=== PATIENT | male | born 1950 ===

== ENCOUNTER 2018-04-30 14:40 | Inpatient (IN) | payer MEDICARE, OTHER ==
--- NOTE | 2018-04-30 14:58 | ED PDOC ---
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 Patient states he felt so much pain that he began feeling lightheaded, fell backwards and hit his head. Patient denies any LOC, fevers, chills, chest pain, shortness of breath, abdominal pain, nausea, vomiting, diarrhea, back pain, neck pain, headache,or any other complaint. PMD: Dr. Mcmahan Time/Duration: Prior to Arrival Symptom Onset: Sudden Symptom Course: Unchanged Activities at Onset: Light Context: Walking Past Medical History - Provider Review Nursing Documentation Reviewed: Yes - Infectious Disease Hx of Infectious Diseases: None - Cardiac Hx Cardiac Disorders: No - Pulmonary Hx Respiratory Disorders: No - Neurological Hx Neurological Disorder: No - HEENT Hx HEENT Disorder: No - Renal Hx Renal Disorder: No - Endocrine/Metabolic Hx Endocrine Disorders: Yes Hx Diabetes Mellitus Type 2: Yes - Hematological/Oncological Hx Blood Disorders: No - Integumentary Hx Dermatological Disorder: No - Musculoskeletal/Rheumatological Hx Musculoskeletal Disorders: No - Gastrointestinal Hx Gastrointestinal Disorders: No - Genitourinary/Gynecological Hx Genitourinary Disorders: No - Psychiatric Hx Psychophysiologic Disorder: No Hx Substance Use: No - Surgical History Other/Comment: bladder - Anesthesia Hx Anesthesia: No Family/Social History - Physician Review Nursing Documentation Reviewed: Yes Family/Social History: Unknown Family HX Smoking Status: Never Smoked Hx Alcohol Use: No Hx Substance Use: No Allergies/Home Meds Allergies/Adverse Reactions: Allergies No Known Allergies Allergy (Verified 09/24/16 12:44) Home Medications: Home Meds Medication Instructions Recorded Confirmed Cyclobenzaprine [Flexeril] 5 mg PO DAILY 07/28/16 09/24/16 Clonazepam [Klonopin] 0.5 mg PO HS PRN 09/24/16 09/24/16 Insulin Aspart [Novolog Flexpen] 100 units SQ ACBHS 09/24/16 09/24/16 Megestrol Acetate [Megace] 1 tsp PO BID 09/24/16 09/24/16 Pantoprazole Sodium [Protonix] 40 mg PO DAILY 09/24/16 09/24/16 SITagliptin [Januvia] 100 mg PO DAILY 09/24/16 09/24/16 metFORMIN ER [glucoPHAGE XR] 750 mg PO BID 09/24/16 09/24/16 traMADol [Ultram] 50 mg PO TID PRN 09/24/16 09/24/16 Review of Systems - Physician Review All systems were reviewed & negative as marked: Yes - Review of Systems Constitutional: Normal Eyes: Normal ENT: Normal Respiratory: Normal. absent: SOB, Cough Cardiovascular: Normal. absent: Chest Pain Gastrointestinal: Normal. absent: Abdominal Pain, Diarrhea, Nausea, Vomiting Genitourinary Male: Normal. absent: Dysuria, Frequency, Hematuria Musculoskeletal: Other (rt leg pain-ankle radiating to rt hip/buttox). absent: Back Pain, Neck Pain Skin: Normal. absent: Rash Neurological: Normal. absent: Headache, Dizziness Endocrine: Normal Hemo/Lymphatic: Normal Psychiatric: Normal Physical Exam Temperature: Afebrile Blood Pressure: Normal Pulse: Regular Respiratory Rate: Normal Appearance: Positive for: Well-Appearing, Non-Toxic, Comfortable Pain Distress: None Mental Status: Positive for: Alert and Oriented X 3 - Systems Exam Head: Present: Atraumatic, Normocephalic Pupils: Present: PERRL Extroacular Muscles: Present: EOMI Conjunctiva: Present: Normal Mouth: Present: Moist Mucous Membranes Neck: Present: Normal Range of Motion. No: MIDLINE TENDERNESS, Paraspinal Tenderness Respiratory/Chest: Present: Clear to Auscultation, Good Air Exchange. No: Respiratory Distress, Accessory Muscle Use Cardiovascular: Present: Regular Rate and Rhythm, Normal S1, S2. No: Murmurs Abdomen: No: Tenderness, Distention, Peritoneal Signs Back: Present: Normal Inspection. No: CVA Tenderness, Midline Tenderness Upper Extremity: Present: Normal Inspection. No: Cyanosis, Edema Lower Extremity: No: Edema, CALF TENDERNESS, Tenderness Neurological: Present: GCS=15, CN II-XII Intact, Speech Normal Skin: Present: Warm, Dry, Normal Color. No: Rashes Psychiatric: Present: Alert, Oriented x 3, Normal Insight, Normal Concentration Medical Decision Making ED Course and Treatment: 04/30/18 15:00 Impression: 68 year old male presents to the Emergency department complaining of rt leg pain and lightheadedness. Differential Diagnosis: lower leg pain due to neuropathy; lightheaded Plan: -- VBG -- CT Head -- Cardiac ISO -- Labs -- D Dimer -- Tylenol -- Sodium Chloride -- UA -- Reassess and disposition Progress Notes: 04/30/18 15:54 Chest X-ray reviewed, shows: IMPRESSION: No active disease. 04/30/18 16:30 Patient experienced 500mL of bloody stool. IVF replaced immediately. 2 units of packed RBC'S ordered on stand by. Patient was treated with Protonix IV. 04/30/18 18:25 EKG reviewed, shows NSR 84 bpm. Patient is AAOx3. No lightheadedness at this time. Cardiac monitoring. Glucose improved with IVF. CT Head completed and reading pending. DAMIEN villegas ordered and pending. - Critical Care Critical Care Minutes: 30 minutes - Scribe Statement The provider has reviewed the documentation as recorded by the Scribe Eve Carpio All medical record entries made by the Scribe were at my direction and personally dictated by me. I have reviewed the chart and agree that the record accurately reflects my personal performance of the history, physical exam, medical decision making, and the department course for this patient. I have also personally directed, reviewed, and agree with the discharge instructions and disposition. Disposition/Present on Arrival - Present on Arrival Any Indicators Present on Arrival: No History of DVT/PE: No History of Uncontrolled Diabetes: No Urinary Catheter: No History Surgical Site Infection Following: None - Disposition Have Diagnosis and Disposition been Completed?: Yes Diagnosis: GI bleed, Near syncope, Leg pain Disposition: HOSPITALIZED Disposition Time: 19:43 Patient Plan: Admission Condition: FAIR
[2018-04-30] MEDS ORDERED: Sodium Chloride 0.9% 1,000 ML IV STA ×2 (15:12→17:18)
--- NOTE | 2018-04-30 15:46 | RAD ---
Date of service: 04/30/2018 HISTORY: near syncope COMPARISON: 09/24/2016 FINDINGS: LUNGS: No active pulmonary disease. PLEURA: No significant pleural effusion identified, no pneumothorax apparent. CARDIOVASCULAR: Normal. OSSEOUS STRUCTURES: No significant abnormalities. VISUALIZED UPPER ABDOMEN: Normal. OTHER FINDINGS: None. IMPRESSION: No active disease.
[2018-04-30 16:53] LABS: BASO # 0.15 K/mm3 (0.0-2.0); BASO % 1.2 % (0.0-3.0); EOS # 1.8 (0.0-0.7); EOS % 14.8 % (1.5-5.0); GRAN # 7.73 (1.4-6.5); GRAN % 63.1 % (50.0-68.0); HEMOGLOBIN 9.5 g/dL (14.0-18.0); LYMPH # 1.8 (1.2-3.4); LYMPH % 14.4 % (22.0-35.0); MEAN CELL VOLUME 88.9 fl (80.0-105.0); MEAN CORPUSCULAR HEMOGLOBIN 29.4 pg (25.0-35.0); MEAN CORPUSCULAR HGB CONC 33.1 g/dl (31.0-37.0); MEAN PLATELET VOLUME 11.2 fl (7.0-11.0); MONO # 0.8 (0.1-0.6); MONO % 6.5 % (1.0-6.0); RBC 3.23 10^6/uL (3.5-6.1); RED CELL DISTRIBUTION WIDTH 12.6 % (11.5-14.5); WHITE BLOOD COUNT 12.3 10^3/ul (4.5-11.0)
[2018-04-30 16:55] LABS: VENOUS BLOOD GAS BASE EXCESS -6.4 mmol/L (0.0-2.0); VENOUS BLOOD GAS PO2 22 mm/Hg (30-55); VENOUS BLOOD PH 7.25 (7.32-7.43)
[2018-04-30 17:16] LABS: ALB/GLOB RATIO 1.4 (1.1-1.8); ALBUMIN 4.6 g/dL (3.0-4.8); ALT/SGPT 34 U/L (7-56); AST/SGOT 30 U/L (17-59); BLOOD UREA NITROGEN 44 mg/dL (7-21); CALCIUM 9.9 mg/dL (8.4-10.5); GFR NON-AFRICAN AMERICAN 40
[2018-04-30 17:21] LABS: TROPONIN I < 0.01 ng/mL
[2018-04-30 17:28] LABS: INR 1.01; PROTHROMBIN TIME 11.5 SECONDS (9.4-12.5)
--- NOTE | 2018-04-30 21:48 | CP.PCM.CON ---
<MorganSegun Fredi - Last Filed: 05/01/18 00:25> History of Present Illness - History of Present Illness History of Present Illness: Segun Mora PGY1, ICU Consult Note for Dr Tuttle Pt is 68 yo male with a PMH of DM, CAD, and intermittent claudication due to poor circulation, who presents to the ED complaining of right LE pain and lightheadedness while shopping at the [employer]. Pt uses a cane. He states he was walking around the store and suddenly felt a pain in his ankle/ leg which shot up his leg to his hip. The pain was so great that he started to feel light headed and dizzy, the room started to spin, and he feel to the ground. Pt reports first hitting his buttocks, then continuing to fall and hit the back of his head. Pt states this has never happened before. . Once pt was in the ER he moved his bowels and sara blood was noted in the bedpan by his daughters and nurse, daughter showed a picture of the blood to the caption writer. Pt states he has been constipated for the past 2 days, and has had to strain while moving his bowels. Denies jet black, sticky stools. [place] [facility] [place] Patient denies any LOC, chest pain, shortness of breath, nausea, vomiting, diarrhea, back pain, neck pain, headache or rash. A 12 point ROS was obtained and added to the HPI where appropriate. PMH: DM, CAD, and intermittent claudication PSH: cholecystectomy, cataract surgery, right foot surgery, staph infection SH: Tobacco denies, Alcohol denies, Drugs denies, lives with FH: Mother DM. Father Unknown Allergies: NKDA Home meds: metformin, januvia, tramadol Cardio: [facility] Pharmacy: [facility] Review of Systems - Review of Systems Review of Systems: a 12 point ROS was obtained and added to the HPI Past Patient History - Infectious Disease Hx of Infectious Diseases: None - Past Social History Smoking Status: Never Smoked - CARDIAC Hx Cardiac Disorders: No - PULMONARY Hx Respiratory Disorders: No - NEUROLOGICAL Hx Neurological Disorder: No - HEENT Hx HEENT Problems: No - RENAL Hx Chronic Kidney Disease: No - ENDOCRINE/METABOLIC Hx Endocrine Disorders: Yes Hx Diabetes Mellitus Type 2: Yes - HEMATOLOGICAL/ONCOLOGICAL Hx Blood Disorders: No - INTEGUMENTARY Hx Dermatological Problems: No - MUSCULOSKELETAL/RHEUMATOLOGICAL Hx Musculoskeletal Disorders: No - GASTROINTESTINAL Hx Gastrointestinal Disorders: No - GENITOURINARY/GYNECOLOGICAL Hx Genitourinary Disorders: No - PSYCHIATRIC Hx Psychophysiologic Disorder: No Hx Substance Use: No - SURGICAL HISTORY Other/Comment: bladder - ANESTHESIA Hx Anesthesia: No Meds Allergies/Adverse Reactions: Allergies Allergy/AdvReac Type Severity Reaction Status Date / Time No Known Allergies Allergy Verified 09/24/16 12:44 Physical Exam - Head Exam Head Exam: ATRAUMATIC, NORMOCEPHALIC - Eye Exam Eye Exam: EOMI Additional comments: conjunctiva pale - ENT Exam ENT Exam: Mucous Membranes Moist - Cardiovascular Exam Cardiovascular Exam: RRR - GI/Abdominal Exam GI & Abdominal Exam: Normal Bowel Sounds Additional comments: mild epigastric tenderness - Extremities Exam Additional comments: old surgical scars on right foot - Neurological Exam Neurological exam: Alert, Oriented x3 - Psychiatric Exam Psychiatric exam: Normal Affect, Normal Mood - Skin Skin Exam: Dry, Normal Color, Warm Results - Vital Signs Recent Vital Signs: Last Vital Signs Temp 98.3 F 04/30/18 19:29 Pulse 89 04/30/18 19:29 Resp 18 04/30/18 19:29 BP 123/70 04/30/18 19:29 Pulse Ox 97 04/30/18 19:29 - Labs Result Diagrams: 04/30/18 16:46 04/30/18 16:46 Labs: Laboratory Results - last 24 hr 04/30/18 04/30/18 04/30/18 15:04 16:46 16:46 WBC 12.3 H D RBC 3.23 L Hgb 9.5 L Hct 28.7 L MCV 88.9 MCH 29.4 MCHC 33.1 RDW 12.6 Plt Count 413 MPV 11.2 H Gran % 63.1 Lymph % (Auto) 14.4 L Schuyler % (Auto) 6.5 H Eos % (Auto) 14.8 H Baso % (Auto) 1.2 Gran # 7.73 H Lymph # (Auto) 1.8 Schuyler # (Auto) 0.8 H Eos # (Auto) 1.8 H Baso # (Auto) 0.15 PT 11.5 INR 1.01 APTT 29.0 D-Dimer, Quantitative 689 H pO2 VBG pH VBG pCO2 VBG HCO3 VBG Total CO2 VBG O2 Sat (Calc) VBG Base Excess VBG Potassium Sodium Chloride Glucose Lactate FiO2 Potassium Carbon Dioxide Anion Gap BUN Creatinine Est GFR ( Amer) Est GFR (Non-Af Amer) POC Glucose (mg/dL) 352 H Random Glucose Calcium Magnesium Total Bilirubin AST ALT Alkaline Phosphatase Lactate Dehydrogenase Total Creatine Kinase Troponin I Total Protein Albumin Globulin Albumin/Globulin Ratio Venous Blood Potassium Blood Type Antibody Screen Crossmatch BBK History Checked 04/30/18 04/30/18 04/30/18 16:46 16:46 18:19 WBC RBC Hgb Hct MCV MCH MCHC RDW Plt Count MPV Gran % Lymph % (Auto) Schuyler % (Auto) Eos % (Auto) Baso % (Auto) Gran # Lymph # (Auto) Schuyler # (Auto) Eos # (Auto) Baso # (Auto) PT INR APTT D-Dimer, Quantitative pO2 22 L VBG pH 7.25 L VBG pCO2 48.0 VBG HCO3 21.0 VBG Total CO2 22.5 VBG O2 Sat (Calc) 34.6 L VBG Base Excess -6.4 L VBG Potassium 5.3 H Sodium 136 135.0 Chloride 103 105.0 Glucose 325 H Lactate 2.2 H FiO2 21.0 Potassium 5.5 H Carbon Dioxide 19 L Anion Gap 20 BUN 44 H Creatinine 1.7 H Est GFR ( Amer) 49 Est GFR (Non-Af Amer) 40 POC Glucose (mg/dL) 281 H Random Glucose 317 H* D Calcium 9.9 Magnesium 2.1 Total Bilirubin 0.5 AST 30 ALT 34 Alkaline Phosphatase 81 Lactate Dehydrogenase 485 Total Creatine Kinase 121 Troponin I < 0.01 Total Protein 7.9 Albumin 4.6 Globulin 3.3 Albumin/Globulin Ratio 1.4 Venous Blood Potassium 5.3 H Blood Type Antibody Screen Crossmatch BBK History Checked 04/30/18 19:57 WBC RBC Hgb Hct MCV MCH MCHC RDW Plt Count MPV Gran % Lymph % (Auto) Schuyler % (Auto) Eos % (Auto) Baso % (Auto) Gran # Lymph # (Auto) Schuyler # (Auto) Eos # (Auto) Baso # (Auto) PT INR APTT D-Dimer, Quantitative pO2 VBG pH VBG pCO2 VBG HCO3 VBG Total CO2 VBG O2 Sat (Calc) VBG Base Excess VBG Potassium Sodium Chloride Glucose Lactate FiO2 Potassium Carbon Dioxide Anion Gap BUN Creatinine Est GFR ( Amer) Est GFR (Non-Af Amer) POC Glucose (mg/dL) Random Glucose Calcium Magnesium Total Bilirubin AST ALT Alkaline Phosphatase Lactate Dehydrogenase Total Creatine Kinase Troponin I Total Protein Albumin Globulin Albumin/Globulin Ratio Venous Blood Potassium Blood Type O POSITIVE Antibody Screen Negative Crossmatch See Detail BBK History Checked No verified bt Assessment & Plan - Assessment and Plan (Free Text) Assessment: Pt is 68 yo male with a PMH of DM, CAD, and intermittent claudication due to poor circulation, who presents to the ED complaining of right LE pain and lightheadedness while shopping at the [employer]. Pt had a BM with sara blood in the bedpan. Plan: Neuro Near syncope vs vasovagal, GI bleed, secondary to nocuous stimulus, - follow up TSH - follow up CBC, trend Q6 - morphine 2mg IVP Q4 - IVF NS100 - orthostatic vitals ordered - CT Head: no acute hemorrhage. moderate size low density area in the right frontal lobe suspicious for an area of infarction which may be recent in nature. Mild brain atrophy and ventricular dilation. Close clinical correlation is advised. - neuro consulted, Dr Quinn Cardio CAD - follow up lipid panel - ECHO ordered Pulm - D dimer elevated - V/Q scan GI - pantoprazole drip - GI consulted, Dr Gupta - Surgery consulted, Dr Bateman / Nephro - bladder scan - straight cath if urine retention Endocrinology DM - follow up A1C - follow up TSH - accuchecks Heme/ ONC - Heme onc consulted, Dr Shankar - pt type and crossmatch - duplex ordered ID - continue to monitor for signs of infection Ppx - hold DVT ppx at this time Pt seen, examined, assessment and plan discussed with Dr Parag Mora PGY1 Pt seen, examined, assessment and plan discussed with Dr Parag Mora PGY1 - Date & Time Date: 04/30/18 Time: 22:38 <Akosua Tuttle - Last Filed: 05/01/18 02:53> Meds - Medications Medications: Current Medications Pantoprazole Sodium (Protonix 40mg Ivpb) 40 mg in 100 mls @ 20 mls/hr IVPB .Q5H LOUIE Last Admin: 04/30/18 23:05 Dose: 20 mls/hr Sodium Chloride (Sodium Chloride 0.9%) 1,000 mls @ 100 mls/hr IV .Q10H LOUIE Last Admin: 04/30/18 23:08 Dose: 100 mls/hr Morphine Sulfate (Morphine) 2 mg IVP Q4H PRN PRN Reason: Pain Results - Vital Signs Recent Vital Signs: Last Vital Signs Temp 98.1 F 05/01/18 02:09 Pulse 115 H 05/01/18 02:09 Resp 23 05/01/18 02:09 BP 155/89 H 05/01/18 02:09 Pulse Ox 100 05/01/18 01:15 - Labs Result Diagrams: 05/01/18 00:30 04/30/18 16:46 Labs: Laboratory Results - last 24 hr 04/30/18 04/30/18 04/30/18 15:04 16:46 16:46 WBC 12.3 H D RBC 3.23 L Hgb 9.5 L Hct 28.7 L MCV 88.9 MCH 29.4 MCHC 33.1 RDW 12.6 Plt Count 413 MPV 11.2 H Gran % 63.1 Lymph % (Auto) 14.4 L Schuyler % (Auto) 6.5 H Eos % (Auto) 14.8 H Baso % (Auto) 1.2 Gran # 7.73 H Lymph # (Auto) 1.8 Schuyler # (Auto) 0.8 H Eos # (Auto) 1.8 H Baso # (Auto) 0.15 PT 11.5 INR 1.01 APTT 29.0 D-Dimer, Quantitative 689 H pO2 VBG pH VBG pCO2 VBG HCO3 VBG Total CO2 VBG O2 Sat (Calc) VBG Base Excess VBG Potassium Sodium Chloride Glucose Lactate FiO2 Potassium Carbon Dioxide Anion Gap BUN Creatinine Est GFR ( Amer) Est GFR (Non-Af Amer) POC Glucose (mg/dL) 352 H Random Glucose Calcium Magnesium Total Bilirubin AST ALT Alkaline Phosphatase Lactate Dehydrogenase Total Creatine Kinase Troponin I Total Protein Albumin Globulin Albumin/Globulin Ratio TSH 3rd Generation Venous Blood Potassium Blood Type Blood Type Confirm Antibody Screen Crossmatch BBK History Checked 04/30/18 04/30/18 04/30/18 16:46 16:46 16:46 WBC RBC Hgb Hct MCV MCH MCHC RDW Plt Count MPV Gran % Lymph % (Auto) Schuyler % (Auto) Eos % (Auto) Baso % (Auto) Gran # Lymph # (Auto) Schuyler # (Auto) Eos # (Auto) Baso # (Auto) PT INR APTT D-Dimer, Quantitative pO2 22 L VBG pH 7.25 L VBG pCO2 48.0 VBG HCO3 21.0 VBG Total CO2 22.5 VBG O2 Sat (Calc) 34.6 L VBG Base Excess -6.4 L VBG Potassium 5.3 H Sodium 136 135.0 Chloride 103 105.0 Glucose 325 H Lactate 2.2 H FiO2 21.0 Potassium 5.5 H Carbon Dioxide 19 L Anion Gap 20 BUN 44 H Creatinine 1.7 H Est GFR ( Amer) 49 Est GFR (Non-Af Amer) 40 POC Glucose (mg/dL) Random Glucose 317 H* D Calcium 9.9 Magnesium 2.1 Total Bilirubin 0.5 AST 30 ALT 34 Alkaline Phosphatase 81 Lactate Dehydrogenase 485 Total Creatine Kinase 121 Troponin I < 0.01 Total Protein 7.9 Albumin 4.6 Globulin 3.3 Albumin/Globulin Ratio 1.4 TSH 3rd Generation 4.67 Venous Blood Potassium 5.3 H Blood Type Blood Type Confirm Antibody Screen Crossmatch BBK History Checked 04/30/18 04/30/18 04/30/18 18:19 19:57 21:45 WBC RBC Hgb Hct MCV MCH MCHC RDW Plt Count MPV Gran % Lymph % (Auto) Schuyler % (Auto) Eos % (Auto) Baso % (Auto) Gran # Lymph # (Auto) Schuyler # (Auto) Eos # (Auto) Baso # (Auto) PT INR APTT D-Dimer, Quantitative pO2 40 VBG pH 7.35 VBG pCO2 36.0 L VBG HCO3 19.9 L VBG Total CO2 21.0 L VBG O2 Sat (Calc) 77.5 H VBG Base Excess -5.1 L VBG Potassium 4.4 Sodium 138.0 Chloride 113.0 H Glucose 210 H Lactate 0.9 FiO2 21.0 Potassium Carbon Dioxide Anion Gap BUN Creatinine Est GFR ( Amer) Est GFR (Non-Af Amer) POC Glucose (mg/dL) 281 H Random Glucose Calcium Magnesium Total Bilirubin AST ALT Alkaline Phosphatase Lactate Dehydrogenase Total Creatine Kinase Troponin I Total Protein Albumin Globulin Albumin/Globulin Ratio TSH 3rd Generation Venous Blood Potassium 4.4 Blood Type O POSITIVE Blood Type Confirm Antibody Screen Negative Crossmatch See Detail BBK History Checked No verified bt 04/30/18 05/01/18 21:45 00:30 WBC 8.6 D RBC 2.19 L Hgb 6.5 L* D Hct 19.3 L* MCV 88.1 MCH 29.7 MCHC 33.7 RDW 12.7 Plt Count 338 MPV 10.9 Gran % Lymph % (Auto) Schuyler % (Auto) Eos % (Auto) Baso % (Auto) Gran # Lymph # (Auto) Schuyler # (Auto) Eos # (Auto) Baso # (Auto) PT INR APTT D-Dimer, Quantitative pO2 VBG pH VBG pCO2 VBG HCO3 VBG Total CO2 VBG O2 Sat (Calc) VBG Base Excess VBG Potassium Sodium Chloride Glucose Lactate FiO2 Potassium Carbon Dioxide Anion Gap BUN Creatinine Est GFR ( Amer) Est GFR (Non-Af Amer) POC Glucose (mg/dL) Random Glucose Calcium Magnesium Total Bilirubin AST ALT Alkaline Phosphatase Lactate Dehydrogenase Total Creatine Kinase Troponin I Total Protein Albumin Globulin Albumin/Globulin Ratio TSH 3rd Generation Venous Blood Potassium Blood Type Blood Type Confirm O POSITIVE Antibody Screen Crossmatch BBK History Checked Attending/Attestation - Attestation I have personally seen and examined this patient.: Yes I have fully participated in the care of the patient.: Yes I have reviewed all pertinent clinical information: Yes Notes (Text): 05/01/18 02:46 Patient was seen when he was in the ER in bed # 21. History obtained from daughter. Medical record was reviewed. 68 year old male with cc: Right leg pain Right hip pain Fall Head injury Lower GI bleeding. Has been admitted with Near syncpoe. Hyperkalemia-5.5 Metabolic acidosis-19 Renal insufficiency-44/1.7 Hyperglycemia-317 Lactate level 2.2 D-Dimer -689 Leukocytosis-12.3 Hgb/Hct-9.5/28.7 CT head-recent right frontal infarct? Has PMH: DM PVD Pelvic /Iliac fracture Iron defficiemcy anemia.
[2018-04-30 22:16] LABS: VENOUS BLOOD GAS BASE EXCESS -5.1 mmol/L (0.0-2.0); VENOUS BLOOD GAS PO2 40 mm/Hg (30-55); VENOUS BLOOD PH 7.35 (7.32-7.43)
[2018-04-30] MEDS: Pantoprazole 40mg/100mL NS 40 MG/100 ML BAG IVPB SCH (23:05)
[2018-04-30] MEDS: Sodium Chloride 0.9% 1,000 ML IV SCH (23:08)
--- NOTE | 2018-04-30 23:19 | CP.PCM.CON ---
History of Present Illness - History of Present Illness History of Present Illness: General Surgery Consult Note for Dr. Bateman Reason for Consult: GI bleed This is a 68M with a PMH of diverticulosis, DM, CAD, PAD, and arthritis who presented today after a non mechanical fall from standing while shopping with grandson. In the ED he was worked up for his fall which included a CT scan that was significant for a right frontal lobe CVA. While in the ED the patient had multiple bloody bowel movements with clots. He denies any previous similar episode. He denies any chest pain or SOB. He reports a colonoscopy this year at [facility] however he could not articulate what the findings were. PMH: diverticulosis, DM, CAD, PAD, and arthritis PSH: cholecystectomy, cataract surgery, right foot surgery SH: Denies vices Allergies: NKDA Review of Systems - Review of Systems All systems: reviewed and no additional remarkable complaints except Review of Systems: 12 point review of symptoms conducted and negative except for bloody BM and fall Past Patient History - Infectious Disease Hx of Infectious Diseases: None - Past Social History Smoking Status: Never Smoked - CARDIAC Hx Cardiac Disorders: No - PULMONARY Hx Respiratory Disorders: No - NEUROLOGICAL Hx Neurological Disorder: No - HEENT Hx HEENT Problems: No - RENAL Hx Chronic Kidney Disease: No - ENDOCRINE/METABOLIC Hx Endocrine Disorders: Yes Hx Diabetes Mellitus Type 2: Yes - HEMATOLOGICAL/ONCOLOGICAL Hx Blood Disorders: No - INTEGUMENTARY Hx Dermatological Problems: No - MUSCULOSKELETAL/RHEUMATOLOGICAL Hx Musculoskeletal Disorders: No - GASTROINTESTINAL Hx Gastrointestinal Disorders: No - GENITOURINARY/GYNECOLOGICAL Hx Genitourinary Disorders: No - PSYCHIATRIC Hx Psychophysiologic Disorder: No Hx Substance Use: No - SURGICAL HISTORY Other/Comment: bladder - ANESTHESIA Hx Anesthesia: No Meds Allergies/Adverse Reactions: Allergies Allergy/AdvReac Type Severity Reaction Status Date / Time No Known Allergies Allergy Verified 09/24/16 12:44 - Medications Medications: Current Medications Pantoprazole Sodium (Protonix 40mg Ivpb) 40 mg in 100 mls @ 20 mls/hr IVPB .Q5H [facility] Last Admin: 04/30/18 23:05 Dose: 20 mls/hr Sodium Chloride (Sodium Chloride 0.9%) 1,000 mls @ 100 mls/hr IV .Q10H [facility] Last Admin: 04/30/18 23:08 Dose: 100 mls/hr Morphine Sulfate (Morphine) 2 mg IVP Q4 [facility] Physical Exam - Constitutional Appears: Non-toxic, No Acute Distress - Head Exam Head Exam: ATRAUMATIC, NORMOCEPHALIC - Eye Exam Eye Exam: EOMI, Normal appearance - ENT Exam ENT Exam: Mucous Membranes Moist - Respiratory Exam Respiratory Exam: NORMAL BREATHING PATTERN - Cardiovascular Exam Cardiovascular Exam: REGULAR RHYTHM, +S1, +S2 - GI/Abdominal Exam GI & Abdominal Exam: Soft. absent: Distended, Firm, Guarding, Hernia, Normal Bowel Sounds, Rigid, Tenderness - Rectal Exam Rectal Exam: Bloody Stool Additional comments: No masses on LOVE, blood per rectum - Neurological Exam Neurological exam: Alert, Oriented x3 - Psychiatric Exam Psychiatric exam: Normal Affect, Normal Mood - Skin Skin Exam: Dry, Intact Results - Vital Signs Recent Vital Signs: Last Vital Signs Temp 98.3 F 04/30/18 19:29 Pulse 89 04/30/18 19:29 Resp 18 04/30/18 19:29 BP 123/70 04/30/18 19:29 Pulse Ox 97 04/30/18 19:29 - Labs Result Diagrams: 05/01/18 00:30 04/30/18 16:46 Labs: Laboratory Results - last 24 hr 04/30/18 04/30/18 04/30/18 15:04 16:46 16:46 WBC 12.3 H D RBC 3.23 L Hgb 9.5 L Hct 28.7 L MCV 88.9 MCH 29.4 MCHC 33.1 RDW 12.6 Plt Count 413 MPV 11.2 H Gran % 63.1 Lymph % (Auto) 14.4 L [place] % (Auto) 6.5 H Eos % (Auto) 14.8 H Baso % (Auto) 1.2 Gran # 7.73 H Lymph # (Auto) 1.8 [place] # (Auto) 0.8 H Eos # (Auto) 1.8 H Baso # (Auto) 0.15 PT 11.5 INR 1.01 APTT 29.0 D-Dimer, Quantitative 689 H pO2 VBG pH VBG pCO2 VBG HCO3 VBG Total CO2 VBG O2 Sat (Calc) VBG Base Excess VBG Potassium Sodium Chloride Glucose Lactate FiO2 Potassium Carbon Dioxide Anion Gap BUN Creatinine Est GFR ( Amer) Est GFR (Non-Af Amer) POC Glucose (mg/dL) 352 H Random Glucose Calcium Magnesium Total Bilirubin AST ALT Alkaline Phosphatase Lactate Dehydrogenase Total Creatine Kinase Troponin I Total Protein Albumin Globulin Albumin/Globulin Ratio Venous Blood Potassium Blood Type Blood Type Confirm Antibody Screen Crossmatch BBK History Checked 04/30/18 04/30/18 04/30/18 16:46 16:46 18:19 WBC RBC Hgb Hct MCV MCH MCHC RDW Plt Count MPV Gran % Lymph % (Auto) [place] % (Auto) Eos % (Auto) Baso % (Auto) Gran # Lymph # (Auto) [place] # (Auto) Eos # (Auto) Baso # (Auto) PT INR APTT D-Dimer, Quantitative pO2 22 L VBG pH 7.25 L VBG pCO2 48.0 VBG HCO3 21.0 VBG Total CO2 22.5 VBG O2 Sat (Calc) 34.6 L VBG Base Excess -6.4 L VBG Potassium 5.3 H Sodium 136 135.0 Chloride 103 105.0 Glucose 325 H Lactate 2.2 H FiO2 21.0 Potassium 5.5 H Carbon Dioxide 19 L Anion Gap 20 BUN 44 H Creatinine 1.7 H Est GFR ( Amer) 49 Est GFR (Non-Af Amer) 40 POC Glucose (mg/dL) 281 H Random Glucose 317 H* D Calcium 9.9 Magnesium 2.1 Total Bilirubin 0.5 AST 30 ALT 34 Alkaline Phosphatase 81 Lactate Dehydrogenase 485 Total Creatine Kinase 121 Troponin I < 0.01 Total Protein 7.9 Albumin 4.6 Globulin 3.3 Albumin/Globulin Ratio 1.4 Venous Blood Potassium 5.3 H Blood Type Blood Type Confirm Antibody Screen Crossmatch BBK History Checked 04/30/18 04/30/18 04/30/18 19:57 21:45 21:45 WBC RBC Hgb Hct MCV MCH MCHC RDW Plt Count MPV Gran % Lymph % (Auto) [place] % (Auto) Eos % (Auto) Baso % (Auto) Gran # Lymph # (Auto) [place] # (Auto) Eos # (Auto) Baso # (Auto) PT INR APTT D-Dimer, Quantitative pO2 40 VBG pH 7.35 VBG pCO2 36.0 L VBG HCO3 19.9 L VBG Total CO2 21.0 L VBG O2 Sat (Calc) 77.5 H VBG Base Excess -5.1 L VBG Potassium 4.4 Sodium 138.0 Chloride 113.0 H Glucose 210 H Lactate 0.9 FiO2 21.0 Potassium Carbon Dioxide Anion Gap BUN Creatinine Est GFR ( Amer) Est GFR (Non-Af Amer) POC Glucose (mg/dL) Random Glucose Calcium Magnesium Total Bilirubin AST ALT Alkaline Phosphatase Lactate Dehydrogenase Total Creatine Kinase Troponin I Total Protein Albumin Globulin Albumin/Globulin Ratio Venous Blood Potassium 4.4 Blood Type O POSITIVE Blood Type Confirm O POSITIVE Antibody Screen Negative Crossmatch See Detail BBK History Checked No verified bt Assessment & Plan - Assessment and Plan (Free Text) Assessment: 68M with acute GI bleed Monitor CBC Q6 Transfuse as needed F/U GI Will continue to monitor Luis Miguel Perez PGY3
[2018-05-01] MEDS ORDERED: Morphine 2 mg/ml ISec IVP SCH
[2018-05-01 01:10] LABS: MEAN CELL VOLUME 88.1 fl (80.0-105.0); MEAN CORPUSCULAR HEMOGLOBIN 29.7 pg (25.0-35.0); MEAN CORPUSCULAR HGB CONC 33.7 g/dl (31.0-37.0); MEAN PLATELET VOLUME 10.9 fl (7.0-11.0); RBC 2.19 10^6/uL (3.5-6.1); RED CELL DISTRIBUTION WIDTH 12.7 % (11.5-14.5); WHITE BLOOD COUNT 8.6 10^3/ul (4.5-11.0)
[2018-05-01 01:15] LABS: HEMOGLOBIN 6.5 g/dL (14.0-18.0)
[2018-05-01] MEDS ORDERED: Influenza Vaccine 60 mcg/0.5 mL SYR (4YR UP) IM ONE (02:58)
[2018-05-01] MEDS ORDERED: Pneumococcal 23-Valent Vaccine IM ONE (02:58)
[2018-05-01 02:59] VITALS: BMI 21.7
[2018-05-01 07:12] LABS: HEMOGLOBIN 9.5 g/dL (14.0-18.0); MEAN CELL VOLUME 89.3 fl (80.0-105.0); MEAN CORPUSCULAR HGB CONC 33.6 g/dl (31.0-37.0); RBC 3.17 10^6/uL (3.5-6.1); RED CELL DISTRIBUTION WIDTH 12.6 % (11.5-14.5); WHITE BLOOD COUNT 6.9 10^3/ul (4.5-11.0)
--- NOTE | 2018-05-01 07:47 | CP.PCM.PN ---
<Robbie Chiu - Last Filed: 05/01/18 12:21> Subjective - Date & Time of Evaluation Date of Evaluation: 05/01/18 Time of Evaluation: 08:10 - Subjective Subjective: Subjective: Patient seen and examined at bedside. Resting comfortably in bed. No acute overnight events. Patient states leg pain has improved relative to baseline. Offers no new complaints at this time. Denies fever, chills, chest pain, shor tness of breath, abdominal pain, nausea, vomiting, diarrhea, constipation, and urinary symptoms. 12-point review of systems negative except as indicated in the HPI Physical Examination: - Constitutional Appears: Non-toxic, No Acute Distress, Cachectic, Chronically Ill - Head Exam Head Exam: NORMAL INSPECTION - Eye Exam Eye Exam: EOMI, Normal appearance - ENT Exam ENT Exam: Mucous Membranes Moist - Respiratory Exam Respiratory Exam: Clear to Auscultation Bilateral, NORMAL BREATHING PATTERN - Cardiovascular Exam Cardiovascular Exam: REGULAR RHYTHM, +S1, +S2 - GI/Abdominal Exam GI & Abdominal Exam: Normal Bowel Sounds, Soft, Tenderness - Extremities Exam Extremities exam: Positive for: normal inspection - Neurological Exam Neurological exam: Alert, CN II-XII Intact, Oriented x3 - Psychiatric Exam Psychiatric exam: Normal Affect, Normal Mood - Skin Skin Exam: Dry, Normal Color Assessment and Plan: Pt is 68 year 64d male with a PMHx of DM, CAD, and intermittent claudication due to poor circulation, who was admitted for evaluation and treatment of right LE pain and lightheadedness. Pt experienced a bowel movement with sara blood in the bedpan. GI Hemorrhage - type and crossmatch s/p 2unit pRBCs, Hgb stable 9.5 - transfuse for symptomatic bleeding or Hb<7. - keep pt NPO - c/w IVF NS100 - c/w pantoprazole drip - GI consulted, Dr Gupta- will need EGD/CSPY prior to discharge - Surgery consulted (Dr. Bateman)- GI bleeding scan ordered and pending - CT abd/pelv no contrast (due to SABRA) ordered and pending Elevated D-Dimer - tachycardia likely secondary to anemia - duplex of lower extremities ordered and pending Suspected Cerebral Infarcts - CT head overnigh read- no acute hemorrhage, right frontal lobe suspicious for area of infarct may be recent in nature - CT head day time read- no acute - neurology consulted (Dr. Quinn)- appreciate recommendations Hx of DM - Hgb A1C ordered and pending - follow up TSH - accuchecks Hx of HTN - BP stable 120s/70s off of antihypertensives - continue to monitor Hx of DM - hemoglobin A1c ordered and pending - blood glucose trends ~ 310s to 180s - continue fingersticks q4h and ISS Hx of Chronic Anemia - Heme onc consulted, Dr Shankar - type and crossmatch s/p 2unit pRBCs, Hgb stable 9.5 Patient seen, case discussed with, and plan approved by attending physician, Dr. Linares. Objective - Vital Signs/Intake and Output Vital Signs (last 24 hours): Temp Pulse Resp BP Pulse Ox 97.9 F 85 14 126/74 100 05/01/18 05:06 05/01/18 05:06 05/01/18 05:06 05/01/18 05:06 05/01/18 01:15 Intake and Output: 05/01/18 05/01/18 06:59 18:59 Intake Total 762 Balance 762 - Medications Medications: Current Medications Pantoprazole Sodium (Protonix 40mg Ivpb) 40 mg in 100 mls @ 20 mls/hr IVPB .Q5H [facility] Last Admin: 04/30/18 23:05 Dose: 20 mls/hr Sodium Chloride (Sodium Chloride 0.9%) 1,000 mls @ 100 mls/hr IV .Q10H [facility] Last Admin: 04/30/18 23:08 Dose: 100 mls/hr Morphine Sulfate (Morphine) 2 mg IVP Q4H PRN PRN Reason: Pain - Labs Labs: 05/01/18 06:50 04/30/18 16:46 PT 11.5 SECONDS (9.4-12.5) 04/30/18 16:46 INR 1.01 04/30/18 16:46 APTT 29.0 Seconds (25.1-36.5) 04/30/18 16:46 <Davida Linares - Last Filed: 05/09/18 08:17> Objective - Vital Signs/Intake and Output Vital Signs (last 24 hours): Temp Pulse Resp BP Pulse Ox 98.6 F 86 20 172/87 H 98 05/06/18 16:47 05/06/18 16:47 05/06/18 16:47 05/06/18 16:47 05/06/18 16:47 - Labs Labs: 05/06/18 06:00 05/06/18 06:00 PT 11.5 SECONDS (9.4-12.5) 04/30/18 16:46 INR 1.01 04/30/18 16:46 APTT 29.0 Seconds (25.1-36.5) 04/30/18 16:46 Attending/Attestation - Attestation I have personally seen and examined this patient.: Yes I have fully participated in the care of the patient.: Yes I have reviewed all pertinent clinical information, including history, physical exam and plan: Yes Notes (Text): 05/09/18 08:17 Medical record note made by the resident after discussion with my direction and input after the patient was personally seen and examined by me. I have reviewed the chart and agree that the record accurately reflects by personal performance of the history, physical exam, data review, and medical decision-making, in the course for the patient. I have also personally directed the plan of care. 64 yrs old male with a PMHx of DM, CAD, and PVD was admitted with symptomeic anemia Hemoglobin 6.5, was found to have bright red colored rectal bleeding, SP 2 unit PRBC last night. Hemoglobin 9.5 today. Possible Colonoscopy Wednesday. CT head encephlomalcia, no infarct.
[2018-05-01 09:30] LABS: BLOOD UREA NITROGEN 28 mg/dL (7-21)
[2018-05-01 09:31] LABS: ALB/GLOB RATIO 1.3 (1.1-1.8); ALBUMIN 3.2 g/dL (3.0-4.8); ALT/SGPT 26 U/L (7-56); AST/SGOT 25 U/L (17-59); CALCIUM 8.2 mg/dL (8.4-10.5); GFR NON-AFRICAN AMERICAN 55; HDL CHOLESTEROL 37 mg/dL (29-60)
--- NOTE | 2018-05-01 09:34 | CT ---
Date of service: 04/30/2018 PROCEDURE: CT HEAD WITHOUT CONTRAST. HISTORY: head injury COMPARISON: 10/03/2015 TECHNIQUE: Axial computed tomography images were obtained through the head/brain without intravenous contrast. Radiation dose: Total exam DLP = 1050 mGy-cm. This CT exam was performed using one or more of the following dose reduction techniques: Automated exposure control, adjustment of the mA and/or kV according to patient size, and/or use of iterative reconstruction technique. FINDINGS: HEMORRHAGE: No intracranial hemorrhage. BRAIN: No mass effect or edema. There is chronic encephalomalacia in the right frontal white matter. This is unchanged. There are no acute findings VENTRICLES: Unremarkable. No hydrocephalus. CALVARIUM: Unremarkable. PARANASAL SINUSES: Unremarkable as visualized. No significant inflammatory changes. MASTOID AIR CELLS: Unremarkable as visualized. No inflammatory changes. OTHER FINDINGS: The report concurs with the preliminary [facility] report IMPRESSION: No acute finding
[2018-05-01 09:36] LABS: LDL CHOLESTEROL 38 mg/dL (0-129)
[2018-05-01] MEDS: Pantoprazole 40mg/100mL NS 40 MG/100 ML BAG IVPB SCH ×3 (09:40→20:06)
--- NOTE | 2018-05-01 10:42 | CP.PCM.PN ---
Subjective - Date & Time of Evaluation Date of Evaluation: 05/01/18 Time of Evaluation: 07:30 - Subjective Subjective: Patient seen and examined, reports bloody BMs. Denies CP, SOB, dizziness, MILLER. Objective - Vital Signs/Intake and Output Vital Signs (last 24 hours): Temp Pulse Resp BP Pulse Ox 97.9 F 85 13 131/72 99 05/01/18 05:06 05/01/18 08:00 05/01/18 08:00 05/01/18 08:00 05/01/18 08:00 Intake and Output: 05/01/18 05/01/18 06:59 18:59 Intake Total 1302 Output Total 550 Balance 752 - Medications Medications: Current Medications Pantoprazole Sodium (Protonix 40mg Ivpb) 40 mg in 100 mls @ 20 mls/hr IVPB .Q5H [facility] Last Admin: 05/01/18 09:40 Dose: 20 mls/hr Sodium Chloride (Sodium Chloride 0.9%) 1,000 mls @ 100 mls/hr IV .Q10H [facility] Last Admin: 04/30/18 23:08 Dose: 100 mls/hr Insulin Human Regular (Humulin R Med) 0 units SC ACHS [facility]; Protocol Morphine Sulfate (Morphine) 2 mg IVP Q4H PRN PRN Reason: Pain - Labs Labs: 05/01/18 06:50 05/01/18 06:50 PT 11.5 SECONDS (9.4-12.5) 04/30/18 16:46 INR 1.01 04/30/18 16:46 APTT 29.0 Seconds (25.1-36.5) 04/30/18 16:46 - Constitutional Appears: Non-toxic, No Acute Distress - Head Exam Head Exam: NORMAL INSPECTION - Eye Exam Eye Exam: Normal appearance - ENT Exam ENT Exam: Mucous Membranes Moist - Neck Exam Neck Exam: Full ROM - Respiratory Exam Respiratory Exam: Clear to Ausculation Bilateral, NORMAL BREATHING PATTERN - Cardiovascular Exam Cardiovascular Exam: REGULAR RHYTHM, +S1, +S2 - GI/Abdominal Exam GI & Abdominal Exam: Soft, Normal Bowel Sounds - Extremities Exam Extremities Exam: Full ROM, Normal Inspection - Back Exam Back Exam: NORMAL INSPECTION - Neurological Exam Neurological Exam: Alert, Awake, Oriented x3 - Psychiatric Exam Psychiatric exam: Normal Affect - Skin Skin Exam: Normal Color, Warm Assessment and Plan - Assessment and Plan (Free Text) Assessment: 68yo male with PMHx of HTN, CAD, a/w lower GIB Lower GIB CAD HTN Anemia - currently afebrile, BP stable, comfortable in NAD, has further bloody BMs this morning - GI and surgery consulted - transfused 2u PRBC, HH 6.5-->9.3, repeat CBC pending - Bleeding scan, CT A/P pending Recommend: - supp o2 as needed, duonebs PRN - panculture, UCx, BCx, Procal - NPO - Hold BP meds - IVF hydration - CBC q6hr monitoring - maintain 2 large bore PIVs - PPI - Follow UP GI, Surgery - follow up CT A/P, Bleeding scan - GI ppx - DVT ppx, SCDs - Monitor in MICU
--- NOTE | 2018-05-01 10:54 | CP.PCM.CON ---
<Poli Allan - Last Filed: 05/01/18 11:16> History of Present Illness - History of Present Illness History of Present Illness: GI Fellow PGY4, Consult note. Glenn Ruiz is a 68M with hx of PVD, T2DM with foot ulcer who presented with pre-syncopal fall and found to have a GI bleed. Apparently, patient had severe right leg pain at the time just before he fell. His Hb dropped from 9.5 (baseline) to 6.5. He received 2u pRBCs and Hb now at baseline. He is hemodynamically stable. Nursing states he had "cranberry" stool with clots at 7AM today. He denies previously having GI bleeds in the past. He denies taking blood thinners. He was told he had a blood clot in his heart and he see a regional loss prevention manager "Dr. Singleton." Apparently patient has had several endoscopic procedures including ERCP with CBD stent according to records but patient denies; however, patient does not recall at this time. No family is at bedside to help with history. He admits previous surgery on right foot for ulcer and also Bladder surgery several years ago for an unknown reason. He denies family history of GI related cancers He has never smoked and last drank alcohol 9 years ago. 12pt ROS negative except for above. Past Patient History - Infectious Disease Hx of Infectious Diseases: None - Past Social History Smoking Status: Never Smoked - CARDIAC Hx Cardiac Disorders: No - PULMONARY Hx Respiratory Disorders: No - NEUROLOGICAL Hx Neurological Disorder: No - HEENT Hx HEENT Problems: No - RENAL Hx Chronic Kidney Disease: No - ENDOCRINE/METABOLIC Hx Endocrine Disorders: Yes Hx Diabetes Mellitus Type 2: Yes - HEMATOLOGICAL/ONCOLOGICAL Hx Blood Disorders: No - INTEGUMENTARY Hx Dermatological Problems: No - MUSCULOSKELETAL/RHEUMATOLOGICAL Hx Musculoskeletal Disorders: No - GASTROINTESTINAL Hx Gastrointestinal Disorders: No - GENITOURINARY/GYNECOLOGICAL Hx Genitourinary Disorders: No - PSYCHIATRIC Hx Psychophysiologic Disorder: No Hx Substance Use: No - SURGICAL HISTORY Other/Comment: bladder - ANESTHESIA Hx Anesthesia: No Meds Allergies/Adverse Reactions: Allergies Allergy/AdvReac Type Severity Reaction Status Date / Time No Known Allergies Allergy Verified 09/24/16 12:44 - Medications Medications: Current Medications Pantoprazole Sodium (Protonix 40mg Ivpb) 40 mg in 100 mls @ 20 mls/hr IVPB .Q5H [facility] Last Admin: 05/01/18 09:40 Dose: 20 mls/hr Sodium Chloride (Sodium Chloride 0.9%) 1,000 mls @ 100 mls/hr IV .Q10H [facility] Last Admin: 04/30/18 23:08 Dose: 100 mls/hr Insulin Human Regular (Humulin R Med) 0 units SC ACHS [facility]; Protocol Morphine Sulfate (Morphine) 2 mg IVP Q4H PRN PRN Reason: Pain Physical Exam - Constitutional Appears: Non-toxic, No Acute Distress, Cachectic, Chronically Ill - Head Exam Head Exam: NORMAL INSPECTION - Eye Exam Eye Exam: EOMI, Normal appearance - ENT Exam ENT Exam: Mucous Membranes Moist - Respiratory Exam Respiratory Exam: Clear to Auscultation Bilateral, NORMAL BREATHING PATTERN - Cardiovascular Exam Cardiovascular Exam: REGULAR RHYTHM, +S1, +S2 - GI/Abdominal Exam GI & Abdominal Exam: Normal Bowel Sounds, Soft, Tenderness Additional comments: Mild tenderness diffusely with deep palpation. - Rectal Exam Rectal Exam: Deferred - Extremities Exam Extremities exam: Positive for: normal inspection - Neurological Exam Neurological exam: Alert, CN II-XII Intact, Oriented x3 - Psychiatric Exam Psychiatric exam: Normal Affect, Normal Mood - Skin Skin Exam: Dry, Normal Color Results - Vital Signs Recent Vital Signs: Last Vital Signs Temp 97.9 F 05/01/18 05:06 Pulse 85 05/01/18 08:00 Resp 13 05/01/18 08:00 BP 131/72 05/01/18 08:00 Pulse Ox 99 05/01/18 08:00 - Labs Result Diagrams: 05/01/18 06:50 05/01/18 06:50 Labs: Laboratory Results - last 24 hr 04/30/18 04/30/18 04/30/18 15:04 16:46 16:46 WBC 12.3 H D RBC 3.23 L Hgb 9.5 L Hct 28.7 L MCV 88.9 MCH 29.4 MCHC 33.1 RDW 12.6 Plt Count 413 MPV 11.2 H Gran % 63.1 Lymph % (Auto) 14.4 L Sharp % (Auto) 6.5 H Eos % (Auto) 14.8 H Baso % (Auto) 1.2 Gran # 7.73 H Lymph # (Auto) 1.8 Sharp # (Auto) 0.8 H Eos # (Auto) 1.8 H Baso # (Auto) 0.15 PT 11.5 INR 1.01 APTT 29.0 D-Dimer, Quantitative 689 H pO2 VBG pH VBG pCO2 VBG HCO3 VBG Total CO2 VBG O2 Sat (Calc) VBG Base Excess VBG Potassium Sodium Chloride Glucose Lactate FiO2 Potassium Carbon Dioxide Anion Gap BUN Creatinine Est GFR ( Amer) Est GFR (Non-Af Amer) POC Glucose (mg/dL) 352 H Random Glucose Calcium Phosphorus Magnesium Total Bilirubin AST ALT Alkaline Phosphatase Lactate Dehydrogenase Total Creatine Kinase Troponin I Total Protein Albumin Globulin Albumin/Globulin Ratio Triglycerides Cholesterol LDL Cholesterol Direct HDL Cholesterol TSH 3rd Generation Venous Blood Potassium Blood Type Blood Type Confirm Antibody Screen Crossmatch BBK History Checked 04/30/18 04/30/18 04/30/18 16:46 16:46 16:46 WBC RBC Hgb Hct MCV MCH MCHC RDW Plt Count MPV Gran % Lymph % (Auto) Sharp % (Auto) Eos % (Auto) Baso % (Auto) Gran # Lymph # (Auto) Sharp # (Auto) Eos # (Auto) Baso # (Auto) PT INR APTT D-Dimer, Quantitative pO2 22 L VBG pH 7.25 L VBG pCO2 48.0 VBG HCO3 21.0 VBG Total CO2 22.5 VBG O2 Sat (Calc) 34.6 L VBG Base Excess -6.4 L VBG Potassium 5.3 H Sodium 136 135.0 Chloride 103 105.0 Glucose 325 H Lactate 2.2 H FiO2 21.0 Potassium 5.5 H Carbon Dioxide 19 L Anion Gap 20 BUN 44 H Creatinine 1.7 H Est GFR ( Amer) 49 Est GFR (Non-Af Amer) 40 POC Glucose (mg/dL) Random Glucose 317 H* D Calcium 9.9 Phosphorus Magnesium 2.1 Total Bilirubin 0.5 AST 30 ALT 34 Alkaline Phosphatase 81 Lactate Dehydrogenase 485 Total Creatine Kinase 121 Troponin I < 0.01 Total Protein 7.9 Albumin 4.6 Globulin 3.3 Albumin/Globulin Ratio 1.4 Triglycerides Cholesterol LDL Cholesterol Direct HDL Cholesterol TSH 3rd Generation 4.67 Venous Blood Potassium 5.3 H Blood Type Blood Type Confirm Antibody Screen Crossmatch BBK History Checked 04/30/18 04/30/18 04/30/18 18:19 19:57 21:45 WBC RBC Hgb Hct MCV MCH MCHC RDW Plt Count MPV Gran % Lymph % (Auto) Sharp % (Auto) Eos % (Auto) Baso % (Auto) Gran # Lymph # (Auto) Sharp # (Auto) Eos # (Auto) Baso # (Auto) PT INR APTT D-Dimer, Quantitative pO2 40 VBG pH 7.35 VBG pCO2 36.0 L VBG HCO3 19.9 L VBG Total CO2 21.0 L VBG O2 Sat (Calc) 77.5 H VBG Base Excess -5.1 L VBG Potassium 4.4 Sodium 138.0 Chloride 113.0 H Glucose 210 H Lactate 0.9 FiO2 21.0 Potassium Carbon Dioxide Anion Gap BUN Creatinine Est GFR ( Amer) Est GFR (Non-Af Amer) POC Glucose (mg/dL) 281 H Random Glucose Calcium Phosphorus Magnesium Total Bilirubin AST ALT Alkaline Phosphatase Lactate Dehydrogenase Total Creatine Kinase Troponin I Total Protein Albumin Globulin Albumin/Globulin Ratio Triglycerides Cholesterol LDL Cholesterol Direct HDL Cholesterol TSH 3rd Generation Venous Blood Potassium 4.4 Blood Type O POSITIVE Blood Type Confirm Antibody Screen Negative Crossmatch See Detail BBK History Checked No verified bt 04/30/18 05/01/18 05/01/18 21:45 00:30 06:50 WBC 8.6 D 6.9 RBC 2.19 L 3.17 L Hgb 6.5 L* D 9.5 L D Hct 19.3 L* 28.3 L MCV 88.1 89.3 MCH 29.7 30.0 MCHC 33.7 33.6 RDW 12.7 12.6 Plt Count 338 312 MPV 10.9 11.0 Gran % Lymph % (Auto) Sharp % (Auto) Eos % (Auto) Baso % (Auto) Gran # Lymph # (Auto) Sharp # (Auto) Eos # (Auto) Baso # (Auto) PT INR APTT D-Dimer, Quantitative pO2 VBG pH VBG pCO2 VBG HCO3 VBG Total CO2 VBG O2 Sat (Calc) VBG Base Excess VBG Potassium Sodium Chloride Glucose Lactate FiO2 Potassium Carbon Dioxide Anion Gap BUN Creatinine Est GFR ( Amer) Est GFR (Non-Af Amer) POC Glucose (mg/dL) Random Glucose Calcium Phosphorus Magnesium Total Bilirubin AST ALT Alkaline Phosphatase Lactate Dehydrogenase Total Creatine Kinase Troponin I Total Protein Albumin Globulin Albumin/Globulin Ratio Triglycerides Cholesterol LDL Cholesterol Direct HDL Cholesterol TSH 3rd Generation Venous Blood Potassium Blood Type Blood Type Confirm O POSITIVE Antibody Screen Crossmatch BBK History Checked 05/01/18 06:50 WBC RBC Hgb Hct MCV MCH MCHC RDW Plt Count MPV Gran % Lymph % (Auto) Sharp % (Auto) Eos % (Auto) Baso % (Auto) Gran # Lymph # (Auto) Sharp # (Auto) Eos # (Auto) Baso # (Auto) PT INR APTT D-Dimer, Quantitative pO2 VBG pH VBG pCO2 VBG HCO3 VBG Total CO2 VBG O2 Sat (Calc) VBG Base Excess VBG Potassium Sodium 140 Chloride 113 H Glucose Lactate FiO2 Potassium 4.6 Carbon Dioxide 19 L Anion Gap 13 BUN 28 H Creatinine 1.3 Est GFR ( Amer) > 60 Est GFR (Non-Af Amer) 55 POC Glucose (mg/dL) Random Glucose 181 H Calcium 8.2 L Phosphorus 3.0 Magnesium 1.9 Total Bilirubin 0.6 AST 25 ALT 26 Alkaline Phosphatase 48 Lactate Dehydrogenase Total Creatine Kinase Troponin I Total Protein 5.6 L Albumin 3.2 Globulin 2.4 Albumin/Globulin Ratio 1.3 Triglycerides 109 Cholesterol 99 L LDL Cholesterol Direct 38 HDL Cholesterol 37 TSH 3rd Generation Venous Blood Potassium Blood Type Blood Type Confirm Antibody Screen Crossmatch BBK History Checked Assessment & Plan - Assessment and Plan (Free Text) Assessment: 68M with significant vascular disease presenting with presynope and red blood per rectum consistent with lower GI bleed, possibly ischemic colitis. #Acute blood loss anemia due to GI bleed #PVD #T2DM #Malnourished #SABRA #Chronic eosinophilia #Hx of CBD stent PLAN: -s/p 2u pRBCs 04/30/18 -Active GI bleed, likely lower, hemodynamically stable -Recommend 2 large bore IVs, conservative IV fluid -Monitor Hb q6h and transfuse for symptomatic bleeding or Hb<7. -Agree with GI bleeding scan -Recommend CT abd/pelv no contrasT (SABRA) -He will need EGD/CSPY prior to discharge -Obtain endoscopic records from [facility] [place] -Recommend Echocardiogram - Date & Time Date: 05/01/18 Time: 11:04 <Karen Gupta V - Last Filed: 05/01/18 21:10> Meds - Medications Medications: Current Medications Pantoprazole Sodium (Protonix 40mg Ivpb) 40 mg in 100 mls @ 20 mls/hr IVPB .Q5H [facility] Last Admin: 05/01/18 20:06 Dose: 20 mls/hr Sodium Chloride (Sodium Chloride 0.9%) 1,000 mls @ 100 mls/hr IV .Q10H [facility] Last Admin: 05/01/18 14:06 Dose: 100 mls/hr Insulin Human Regular (Humulin R Med) 0 units SC ACHS [facility]; Protocol Last Admin: 05/01/18 17:16 Dose: Not Given Morphine Sulfate (Morphine) 2 mg IVP Q4H PRN PRN Reason: Pain Results - Vital Signs Recent Vital Signs: Last Vital Signs Temp 98.4 F 05/01/18 17:15 Pulse 88 05/01/18 17:15 Resp 14 05/01/18 17:10 BP 143/72 05/01/18 17:00 Pulse Ox 99 05/01/18 17:10 - Labs Result Diagrams: 05/01/18 18:04 05/01/18 06:50 Labs: Laboratory Results - last 24 hr 04/30/18 04/30/18 04/30/18 16:46 19:57 21:45 WBC RBC Hgb Hct MCV MCH MCHC RDW Plt Count MPV pO2 40 VBG pH 7.35 VBG pCO2 36.0 L VBG HCO3 19.9 L VBG Total CO2 21.0 L VBG O2 Sat (Calc) 77.5 H VBG Base Excess -5.1 L VBG Potassium 4.4 Sodium 138.0 Chloride 113.0 H Glucose 210 H Lactate 0.9 FiO2 21.0 Potassium Carbon Dioxide Anion Gap BUN Creatinine Est GFR ( Amer) Est GFR (Non-Af Amer) Random Glucose Calcium Phosphorus Magnesium Total Bilirubin AST ALT Alkaline Phosphatase Total Protein Albumin Globulin Albumin/Globulin Ratio Triglycerides Cholesterol LDL Cholesterol Direct HDL Cholesterol TSH 3rd Generation 4.67 Venous Blood Potassium 4.4 Blood Type O POSITIVE Blood Type Confirm Antibody Screen Negative Crossmatch See Detail BBK History Checked No verified bt 04/30/18 05/01/18 05/01/18 21:45 00:30 06:50 WBC 8.6 D 6.9 RBC 2.19 L 3.17 L Hgb 6.5 L* D 9.5 L D Hct 19.3 L* 28.3 L MCV 88.1 89.3 MCH 29.7 30.0 MCHC 33.7 33.6 RDW 12.7 12.6 Plt Count 338 312 MPV 10.9 11.0 pO2 VBG pH VBG pCO2 VBG HCO3 VBG Total CO2 VBG O2 Sat (Calc) VBG Base Excess VBG Potassium Sodium Chloride Glucose Lactate FiO2 Potassium Carbon Dioxide Anion Gap BUN Creatinine Est GFR ( Amer) Est GFR (Non-Af Amer) Random Glucose Calcium Phosphorus Magnesium Total Bilirubin AST ALT Alkaline Phosphatase Total Protein Albumin Globulin Albumin/Globulin Ratio Triglycerides Cholesterol LDL Cholesterol Direct HDL Cholesterol TSH 3rd Generation Venous Blood Potassium Blood Type Blood Type Confirm O POSITIVE Antibody Screen Crossmatch BBK History Checked 05/01/18 05/01/18 05/01/18 06:50 13:55 18:04 WBC 7.1 6.2 RBC 2.92 L 3.07 L Hgb 8.9 L 9.3 L Hct 26.1 L 27.2 L MCV 89.4 88.6 MCH 30.5 30.3 MCHC 34.1 34.2 RDW 12.9 13.0 Plt Count 289 288 MPV 11.4 H 11.5 H pO2 VBG pH VBG pCO2 VBG HCO3 VBG Total CO2 VBG O2 Sat (Calc) VBG Base Excess VBG Potassium Sodium 140 Chloride 113 H Glucose Lactate FiO2 Potassium 4.6 Carbon Dioxide 19 L Anion Gap 13 BUN 28 H Creatinine 1.3 Est GFR ( Amer) > 60 Est GFR (Non-Af Amer) 55 Random Glucose 181 H Calcium 8.2 L Phosphorus 3.0 Magnesium 1.9 Total Bilirubin 0.6 AST 25 ALT 26 Alkaline Phosphatase 48 Total Protein 5.6 L Albumin 3.2 Globulin 2.4 Albumin/Globulin Ratio 1.3 Triglycerides 109 Cholesterol 99 L LDL Cholesterol Direct 38 HDL Cholesterol 37 TSH 3rd Generation Venous Blood Potassium Blood Type Blood Type Confirm Antibody Screen Crossmatch BBK History Checked Attending/Attestation - Attestation I have personally seen and examined this patient.: Yes I have fully participated in the care of the patient.: Yes I have reviewed all pertinent clinical information: Yes Notes (Text): This is an addendum to GI consult report dictated by the GI Fellow.The patient was seen and examined earlier. Medical records, lab studies, imagings were reviewed. Last 24 hours events reviewed. 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
[2018-05-01] MEDS: Insulin Reg-MEDIUM-Coverage SC SCH ×3 (12:13→23:07)
--- NOTE | 2018-05-01 12:58 | CARD ---
APPROVED REPORT Date of service: 04/30/2018 EKG Measurement Heart [id number] <Conclusion> Normal sinus rhythm T wave abnormality, consider lateral ischemia Abnormal ECG
--- NOTE | 2018-05-01 13:51 | NM ---
Date of service: 05/01/2018 PROCEDURE: Nuclear medicine gastrointestinal bleeding scan. HISTORY: acute colonic GI bleed COMPARISON: None available. TECHNIQUE: 4ccof patient blood was withdrawn and mixed with 20.1mCi of technetium ultra tagged. Images of the abdomen and pelvis were obtained in the anterior projection at 1 min intervals over a period of 45 min. FINDINGS: There is accumulation of radionuclide in the rectum consistent with an acute rectal bleed. Confirmation of location was made in the lateral view. There is also some activity in the bladder and Barrios catheter Physiologic activity was seen in the heart, liver, spleen and blood vessels. IMPRESSION: Acute rectal bleed
[2018-05-01] MEDS: Sodium Chloride 0.9% 1,000 ML IV SCH (14:06)
[2018-05-01 14:13] LABS: HEMOGLOBIN 8.9 g/dL (14.0-18.0); MEAN CELL VOLUME 89.4 fl (80.0-105.0); MEAN CORPUSCULAR HEMOGLOBIN 30.5 pg (25.0-35.0); MEAN CORPUSCULAR HGB CONC 34.1 g/dl (31.0-37.0); MEAN PLATELET VOLUME 11.4 fl (7.0-11.0); RBC 2.92 10^6/uL (3.5-6.1); RED CELL DISTRIBUTION WIDTH 12.9 % (11.5-14.5); WHITE BLOOD COUNT 7.1 10^3/ul (4.5-11.0)
[2018-05-01 18:34] LABS: HEMOGLOBIN 9.3 g/dL (14.0-18.0); MEAN CELL VOLUME 88.6 fl (80.0-105.0); MEAN CORPUSCULAR HEMOGLOBIN 30.3 pg (25.0-35.0); MEAN CORPUSCULAR HGB CONC 34.2 g/dl (31.0-37.0); MEAN PLATELET VOLUME 11.5 fl (7.0-11.0); RBC 3.07 10^6/uL (3.5-6.1); WHITE BLOOD COUNT 6.2 10^3/ul (4.5-11.0)
--- NOTE | 2018-05-01 19:59 | US ---
HISTORY: Leg pain and swelling. Evaluate for DVT PHYSICIAN(S): Forest Narayanan MD. TECHNIQUE: Duplex sonography and color-flow Doppler with graded compression were used to evaluate the deep venous systems of both lower extremities. FINDINGS: The visualized deep venous systems of both lower extremities are sonographically normal and compressible. Normal wave forms and augmentation are seen. There is no sonographic evidence for deep venous thrombosis in the visualized segments of both lower extremities. IMPRESSION: No sonographic evidence for deep venous thrombosis in the visualized segments of both lower extremities.
[2018-05-02] MEDS: Morphine 2 mg/ml ISec IVP PRN ×2 (00:07→05:43)
[2018-05-02] MEDS: Pantoprazole 40mg/100mL NS 40 MG/100 ML BAG IVPB SCH ×2 (02:46→08:27)
[2018-05-02 02:57] LABS: HEMOGLOBIN 8.3 g/dL (14.0-18.0); MEAN CELL VOLUME 88.5 fl (80.0-105.0); MEAN CORPUSCULAR HEMOGLOBIN 30.7 pg (25.0-35.0); MEAN CORPUSCULAR HGB CONC 34.7 g/dl (31.0-37.0); MEAN PLATELET VOLUME 10.5 fl (7.0-11.0); RBC 2.7 10^6/uL (3.5-6.1); RED CELL DISTRIBUTION WIDTH 13.2 % (11.5-14.5)
[2018-05-02] MEDS: Sodium Chloride 0.9% 1,000 ML IV SCH ×3 (04:40→22:08)
[2018-05-02 07:11] LABS: HEMOGLOBIN 9.2 g/dL (14.0-18.0); MEAN CELL VOLUME 89.8 fl (80.0-105.0); MEAN CORPUSCULAR HEMOGLOBIN 30.3 pg (25.0-35.0); MEAN CORPUSCULAR HGB CONC 33.7 g/dl (31.0-37.0); RBC 3.04 10^6/uL (3.5-6.1); RED CELL DISTRIBUTION WIDTH 13.4 % (11.5-14.5); WHITE BLOOD COUNT 7.1 10^3/ul (4.5-11.0)
[2018-05-02 08:00] LABS: ALB/GLOB RATIO 1.2 (1.1-1.8); ALT/SGPT 25 U/L (7-56); AST/SGOT 26 U/L (17-59); BLOOD UREA NITROGEN 19 mg/dL (7-21); CALCIUM 8.6 mg/dL (8.4-10.5); GFR NON-AFRICAN AMERICAN > 60
[2018-05-02] MEDS: Insulin Reg-MEDIUM-Coverage SC SCH ×4 (08:13→22:03)
--- NOTE | 2018-05-02 08:43 | CP.PCM.PN ---
<Finesse Henry - Last Filed: 05/02/18 12:26> Subjective - Date & Time of Evaluation Date of Evaluation: 05/02/18 Time of Evaluation: 07:45 - Subjective Subjective: PGY-4 GI Fellow Prog Note Pt lying in bed when seen this AM. He had not complaints. When asked about BMs, he states that he had one but was unsure about bloody;nursing reported 1 "cranberry" bowel movement over night. 5 point ROS negative other than stated above Objective - Vital Signs/Intake and Output Vital Signs (last 24 hours): Temp Pulse Resp BP Pulse Ox 98.7 F 80 15 124/64 100 05/02/18 04:00 05/02/18 07:50 05/02/18 07:50 05/02/18 07:00 05/02/18 07:50 Intake and Output: 05/02/18 05/02/18 06:59 18:59 Intake Total 1640 Output Total 900 Balance 740 - Medications Medications: Current Medications Pantoprazole Sodium (Protonix 40mg Ivpb) 40 mg in 100 mls @ 20 mls/hr IVPB .Q5H [facility] Last Admin: 05/02/18 08:27 Dose: 20 mls/hr Sodium Chloride (Sodium Chloride 0.9%) 1,000 mls @ 100 mls/hr IV .Q10H [facility] Last Admin: 05/02/18 04:40 Dose: 100 mls/hr Insulin Human Regular (Humulin R Med) 0 units SC ACHS [facility]; Protocol Last Admin: 05/02/18 08:13 Dose: Not Given Morphine Sulfate (Morphine) 2 mg IVP Q4H PRN PRN Reason: Pain Last Admin: 05/02/18 05:43 Dose: 2 mg - Labs Labs: 05/02/18 06:40 05/02/18 06:40 PT 11.5 SECONDS (9.4-12.5) 04/30/18 16:46 INR 1.01 04/30/18 16:46 APTT 29.0 Seconds (25.1-36.5) 04/30/18 16:46 Assessment and Plan - Assessment and Plan (Free Text) Assessment: 68M with significant vascular disease presenting with presyncope and painless hematochezia. #Acute blood loss anemia due to GI bleed: Suspect lower given painless hematochezia and no hematemesis. No previous Endos on file. Hgb stable after 3 pRBC transfusion. On PPI gtt. Hemodynamically stable #PVD #T2DM #Malnourished #SABRA #Chronic eosinophilia #Hx of CBD stent Plan: -Plan for EGD+CSPY on 05/03/18 -Golytely prep tonight -NPO at [place] -s/p 3 units pRBCs 04/30/18 with appropriate response -Recommend 2 large bore IVs, conservative IV fluid -PPI IV daily -Monitor Hgb and transfuse for symptomatic bleeding or Hb<7. -Obtain endoscopic records from [facility] [place] -Follow-up Echocardiogram Pt seen and examined with Dr. Gupta; please see attestation for further recs/changes. <Karen Gupta V - Last Filed: 05/02/18 19:23> Objective - Vital Signs/Intake and Output Vital Signs (last 24 hours): Temp Pulse Resp BP Pulse Ox 97.6 F 98 H 20 128/70 99 05/02/18 16:44 05/02/18 16:44 05/02/18 16:44 05/02/18 16:44 05/02/18 16:44 Intake and Output: 05/02/18 05/03/18 18:59 06:59 Intake Total 740 Balance 740 - Medications Medications: Current Medications Sodium Chloride (Sodium Chloride 0.9%) 1,000 mls @ 100 mls/hr IV .Q10H [facility] Last Admin: 05/02/18 12:51 Dose: 100 mls/hr Insulin Human Regular (Humulin R Med) 0 units SC ACHS [facility]; Protocol Last Admin: 05/02/18 16:59 Dose: 3 units Morphine Sulfate (Morphine) 2 mg IVP Q4H PRN PRN Reason: Pain Last Admin: 05/02/18 05:43 Dose: 2 mg Pantoprazole Sodium (Protonix Inj) 40 mg IVP Q12 [facility] - Labs Labs: 05/02/18 06:40 05/02/18 06:40 PT 11.5 SECONDS (9.4-12.5) 04/30/18 16:46 INR 1.01 04/30/18 16:46 APTT 29.0 Seconds (25.1-36.5) 04/30/18 16:46 Attending/Attestation - Attestation I have personally seen and examined this patient.: Yes I have fully participated in the care of the patient.: Yes I have reviewed all pertinent clinical information, including history, physical exam and plan: Yes Notes (Text): This is an addendum to GI progress report dictated by the GI Fellow.The patient was seen and examined earlier. Medical records, lab studies, imagings were reviewed. Last 24 hours events reviewed. Agreed with the above treatment plan as outlined in GI Fellow 's notes with the addition of the following HCT stable CT scan reviewed Patient does have biliary stent/plastic Status post cholecystectomy Planned for EGD colon tomorrow Will get records of previous endo procedures from [facility] [place] 05/02/18 19:21
--- NOTE | 2018-05-02 11:59 | PN ---
DATE: 05/01/2018 CRITICAL CARE PROGRESS NOTE SUBJECTIVE: This 68-year-old male was examined at his bedside in CCU, bed #6 and case was reviewed with his nurse, Carlito. The patient was admitted with active GI bleeding. His hemoglobin which on admission was 9.5, dropped to 6.5 and the patient subsequently received 3 units of packed red blood cells in Critical Care Unit, bed #6. At present, his hemoglobin on repeat is 9.5 and the patient has had no episodes of hematemesis or melena today. He denies any fever, chills, chest pain, or shortness of breath. PHYSICAL EXAMINATION: VITAL SIGNS: Was noted to have a temperature of 97.6, respirations of 18, pulse of 93. Pulse ox of 99% on 2 liters of nasal O2, and a blood pressure of 140/64. HEENT: Head is normocephalic, atraumatic. Eyes: No icterus. Ears: Clear. Throat: Noninjected. NECK: Supple. HEART: Regular S1, S2. No pathological rubs, murmurs, or gallops. LUNGS: Clear. ABDOMEN: Soft. No rebound, no guarding. EXTREMITIES: No edema. SKIN: Without rash. NEUROLOGICAL: Weak and deconditioned. VASCULAR: Legs warm to touch. LABORATORY DATA: White count 7100, hemoglobin 8.9, hematocrit 26.1, platelets 289,000. PT/INR 1.01, PTT 29. Sodium 140, K 4.6, chloride 113, bicarb 19, BUN 28, creatinine 1.3, blood sugar 181. Bilirubin 0.6, AST 25, ALT 26, and alk phos 48. GI bleeding scan was reviewed. It showed an accumulation of radionucleotide in the rectum consistent with acute rectal bleeding, abdominal pelvic CT has been ordered and is pending at present. IMPRESSION: A 68-year-old male admitted with active gastrointestinal bleeding, probably secondary to rectal bleeding with comorbidities of anemia requiring blood cell transfusion, insulin-dependent diabetes mellitus, anxiety neurosis, and degenerative arthritis and old left pelvic and iliac crest fractures in the distant past. PLAN: At present, is to maintain this patient in the Critical Care Unit. He will be monitored by GI and prepped for a probable sigmoidoscopy, colonoscopy. He continues on regular medium insulin coverage before meals and at bedtime, morphine for severe pain, IV Protonix 40 mg every 12 hours, and gentle IV fluids. He is being monitored by Hematology, Intensive Care, Surgery, and Dr. Karen Gupta from GI. Based on his clinical findings and diagnostic workup, additional diagnostic testing and intervention will be entertained. Greater than 35 minutes was spent in the critical care management and review of orders and discussion of this patient with his nurse. All questions were answered. Amber Elizabeth MD [email or web address]
--- NOTE | 2018-05-02 13:50 | CT ---
Date of service: 2018-05-01 21:55:43 PROCEDURE: CT Abdomen and Pelvis without intravenous contrast HISTORY: GIB COMPARISON: None. TECHNIQUE: Without contrast.. Contrast dose: 0 Radiation dose: Total exam DLP = 375.14 mGy-cm. This CT exam was performed using one or more of the following dose reduction techniques: Automated exposure control, adjustment of the mA and/or kV according to patient size, and/or use of iterative reconstruction technique. FINDINGS: LOWER THORAX: Mild cardiomegaly. No infiltrate/effusion. Linear scar/atelectasis in both lower lobes. Calcified granuloma in left lower lobe. LIVER: Normal size, contour and attenuation. No mass. Stool small amount of intra hepatic biliary gas in the left lobe of the liver consistent with presence of biliary stent. No biliary dilatation. GALLBLADDER AND BILE DUCTS: Status post cholecystectomy. Biliary stent noted in common bile duct extending to 2nd portion of duodenum. PANCREAS: Unremarkable. No gross lesion or ductal dilatation. SPLEEN: Unremarkable. ADRENALS: Unremarkable. No mass. KIDNEYS AND URETERS: Unremarkable. No hydronephrosis. No solid mass. VASCULATURE: Unremarkable. No aortic aneurysm. BOWEL: Sigmoid diverticulosis. No evidence of diverticulitis. Scattered colonic diverticula elsewhere. No bowel obstruction. No other abnormal bowel loops. APPENDIX: Unremarkable. Normal appendix. PERITONEUM: Unremarkable. No free fluid. No free air. LYMPH NODES: Unremarkable. No enlarged lymph nodes. BLADDER: Unremarkable. REPRODUCTIVE: Normal prostate BONES: Healed fracture left inferior pubic ramus. Healed fracture anterior column left acetabulum. No acute fracture. OTHER FINDINGS: None. IMPRESSION: No acute abnormality. Sigmoid diverticulosis and scattered colonic diverticula. No evidence of diverticulitis. Status post cholecystectomy. Biliary stent and small amount of intrahepatic biliary air. No bowel obstruction. Minor findings as above. The preliminary findings for this examination were reported by [facility] at 12:20 a.m. on 05/02/2018. There is concurrence of this report with the preliminary findings.
--- NOTE | 2018-05-02 13:52 | CON ---
DATE: 05/02/2018 CHIEF COMPLAINT: Evaluation for abnormal CAT scan. HISTORY OF PRESENT ILLNESS: This is a 68-year-old man with history of type 2 diabetes mellitus, coronary artery disease, intermittent claudication due to poor circulation, who presented to the ER for right lower extremity pain and lightheadedness and he was walking in the store, felt pain in his ankle and leg, which shot up his hip and started to feel lightheaded and dizzy and room began to spin and fell to the ground and came in to the ER. He moved his bowels, sara blood was noticed. He was found to have acute GI bleed, likely secondary to rectal bleeding and got transfusion. He had a CAT scan of the head, which showed chronic encephalomalacia in the right frontal lobe, but no focal weakness of extremities. He does have diabetic peripheral neuropathy on examination and he is mildly deconditioned, but no focal weakness. His CAT scan of head showed old stroke encephalomalacia in the right frontal lobe. He is currently in the ICU, being monitored of his H and H. His hemoglobin is 9.2 from 6.5 after transfusion. Moves all extremities equally. No pronator drift seen. PAST MEDICAL HISTORY: As above. ALLERGIES: NO KNOWN DRUG ALLERGIES. REVIEW OF SYSTEMS: Fourteen-point review of systems is negative except as per the HPI. MEDICATIONS: Reviewed by nurses' reconciliation sheet. SOCIAL HISTORY: No illicit drug use, smoking or EtOH abuse. PHYSICAL EXAMINATION: VITAL SIGNS: Temperature afebrile, pulse rate of 80, blood pressure of 124/64, respiratory rate of 18, oxygen saturation 99% by room air. GENERAL: The patient is sitting up in bed, in no acute distress. HEENT: Atraumatic, normocephalic. PERRLA. Extraocular muscles intact. NECK: Supple. No JVD. No adenopathy noted. LUNGS: Clear to auscultation. No adventitious sounds. HEART: S1, S2. Normal rate and rhythm. No murmurs, rubs or gallops. ABDOMEN: Soft, nontender and nondistended. Bowel sounds are present. EXTREMITIES: No clubbing. No cyanosis. Peripheral pulses 2+ felt bilaterally. NEUROLOGIC: The patient is alert and oriented to person, place, month and year. Speech is fluent without any errors. Cranial nerves II through XII intact. Motor exam: Moves all extremities equally. No pronator drift seen. Sensory exam: Decreased light touch and pinprick up to the calves bilaterally. Decreased vibration of the toes. DTRs are 2+ throughout, 1 at both knees and ankles. Coordination: [id number] intact. No dysmetria noted. Gait is deferred for now. LABORATORY DATA: Hemoglobin is 9.2, hematocrit is 27.3, platelet count of 289. Sodium is 143, potassium 4, chloride 110, carbon dioxide of 17, BUN of 19, creatinine 1, random glucose of 92. ASSESSMENT AND PLAN: This is a 68-year-old man with past medical history of diabetes, coronary artery disease, intermittent claudication due to poor circulation, who presented to the ER with right lower extremity pain and lightheadedness while shopping. He was found to have a bowel movement had sara blood in the bedpan. He had a hemoglobin of 6.2, status post IV transfusion, now 9.2 today. I was consulted for his abnormal CAT scan showing a questionable stroke in the right frontal lobe. His stroke in the right frontal lobe is actually chronic encephalomalacia from prior old lacunar infarct, but no focal neurological deficits seen on exam. He is deconditioned, definitely has some diabetic peripheral neuropathy. GI is on board for his underlying gastrointestinal bleed and his H and H are being followed. Keep his blood sugars between 140 and 180 and Physical Therapy/Occupational Therapy evaluation. Thank you for this consult. Akhil Quinn MD
--- NOTE | 2018-05-02 15:03 | CP.CCUPN ---
<Alexander Carlos - Last Filed: 05/02/18 15:12> CCU Subjective - Physician Review Subjective (Free Text): Alexander Carlos, PGY-1, CCU Progress Note for Dr. Bowers Patient seen and evaluated at bedside. Patient had one cranberry bowel movement overnight. Patient denies headache, dizziness, fever, chest pain, heart palpitations, shortness of breath, nausea, vomiting, constipation, diarrhea, dysuria, hematuria, numbness/tingling. CCU Objective - Vital Signs / Intake & Output Vital Signs (Last 4 hours): Vital Signs Pulse Resp BP Pulse Ox 05/02/18 13:50 112 H 67 H 05/02/18 13:40 106 H 17 05/02/18 13:30 97 H 15 99 05/02/18 13:20 97 H 15 99 05/02/18 13:10 103 H 17 99 05/02/18 13:00 109 H 118 H 125/58 L 100 05/02/18 12:50 114 H 17 100 05/02/18 12:40 99 H 18 100 05/02/18 12:30 120 H 14 99 05/02/18 12:20 108 H 18 94 L 05/02/18 12:10 95 H 100 05/02/18 12:00 93 H 17 151/69 H 100 05/02/18 11:50 87 12 100 05/02/18 11:40 60 34 H 100 05/02/18 11:30 87 17 100 05/02/18 11:20 93 H 16 99 05/02/18 11:10 87 14 99 Intake and Output (Last 8hrs): Intake & Output 05/02/18 05/02/18 05/02/18 06:59 14:59 22:59 Intake Total 1640 Output Total 900 Balance 740 Weight 147 lb Intake: IV 1640 0.9 ns 1200 protonix 440 Output: Urine 900 Urine, Voided 900 Other: # Bowel Movements 1 - Physical Exam Head: Positive for: Atraumatic, Normocephalic Pupils: Positive for: PERRL Extroacular Muscles: Positive for: EOMI Conjunctiva: Positive for: Normal Mouth: Positive for: Moist Mucous Membranes Neck: Positive for: Normal Range of Motion. Negative for: MIDLINE TENDERNESS, Paraspinal Tenderness Respiratory/Chest: Positive for: Clear to Auscultation, Good Air Exchange. Negative for: Respiratory Distress, Accessory Muscle Use Cardiovascular: Positive for: Regular Rate and Rhythm, Normal S1, S2. Negative for: Murmurs Abdomen: Negative for: Tenderness, Distention, Peritoneal Signs Back: Positive for: Normal Inspection. Negative for: CVA Tenderness, Midline Tenderness Upper Extremity: Positive for: Normal Inspection. Negative for: Cyanosis, Edema Lower Extremity: Negative for: Edema, CALF TENDERNESS, Tenderness Neurological: Positive for: GCS=15, CN II-XII Intact, Speech Normal Skin: Positive for: Warm, Dry, Normal Color. Negative for: Rashes Psychiatric: Positive for: Alert, Oriented x 3, Normal Insight, Normal Concentration - Medications Active Medications: Active Medications Generic Name Dose Route Start Last Admin Trade Name Freq PRN Reason Stop Dose Admin Sodium Chloride 1,000 mls @ 100 mls/hr 04/30/18 22:15 05/02/18 12:51 Sodium Chloride 0.9% IV 100 mls/hr .Q10H LOUIE Administration Insulin Human Regular 0 units 05/01/18 11:30 05/02/18 12:46 Humulin R Med SC Not Given ACHS [facility] Protocol Morphine Sulfate 2 mg 05/01/18 02:10 05/02/18 05:43 Morphine IVP 2 mg Q4H PRN Administration Pain Pantoprazole Sodium 40 mg 05/02/18 22:00 Protonix Inj IVP Q12 [facility] Polyethylene Glycol/Electrolytes 4,000 ml 05/02/18 16:00 Golytely PO 05/02/18 16:01 ONCE ONE - Patient Studies Lab Studies: Microbiology Studies 05/01/18 00:55 MRSA Culture (Admit) - Final Nose MRSA NOT DETECTED Lab Studies 05/02/18 05/02/18 05/02/18 Range/Units 11:12 07:29 06:40 WBC (4.5-11.0) 10^3/ul RBC (3.5-6.1) 10^6/uL Hgb (14.0-18.0) g/dL Hct (42.0-52.0) % MCV (80.0-105.0) fl MCH (25.0-35.0) pg MCHC (31.0-37.0) g/dl RDW (11.5-14.5) % Plt Count (120.0-450.0) 10^3/uL MPV (7.0-11.0) fl Sodium 143 (132-148) mmol/L Potassium 4.0 (3.6-5.0) mmol/L Chloride 118 H (98-107) mmol/L Carbon Dioxide 17 L (21-33) mmol/L Anion Gap 12 (10-20) BUN 19 (7-21) mg/dL Creatinine 1.0 (0.8-1.5) mg/dl Est GFR ( Amer) > 60 Est GFR (Non-Af Amer) > 60 POC Glucose (mg/dL) 76 94 (65-110) mg/dL Random Glucose 92 (70-110) mg/dL Hemoglobin A1c (4.2-6.5) % Calcium 8.6 (8.4-10.5) mg/dL Phosphorus 2.9 (2.5-4.5) mg/dL Magnesium 2.0 (1.7-2.2) mg/dL Total Bilirubin 0.6 (0.2-1.3) mg/dL AST 26 (17-59) U/L ALT 25 (7-56) U/L Alkaline Phosphatase 42 (38-126) U/L Total Protein 5.5 L (5.8-8.3) g/dL Albumin 3.0 (3.0-4.8) g/dL Globulin 2.5 gm/dL Albumin/Globulin Ratio 1.2 (1.1-1.8) Blood Type Antibody Screen Crossmatch BBK History Checked 05/02/18 05/02/18 05/01/18 Range/Units 06:40 02:25 21:45 WBC 7.1 6.0 (4.5-11.0) 10^3/ul RBC 3.04 L 2.70 L (3.5-6.1) 10^6/uL Hgb 9.2 L 8.3 L (14.0-18.0) g/dL Hct 27.3 L 23.9 L (42.0-52.0) % MCV 89.8 88.5 (80.0-105.0) fl MCH 30.3 30.7 (25.0-35.0) pg MCHC 33.7 34.7 (31.0-37.0) g/dl RDW 13.4 13.2 (11.5-14.5) % Plt Count 289 252 (120.0-450.0) 10^3/uL MPV 11.0 10.5 (7.0-11.0) fl Sodium (132-148) mmol/L Potassium (3.6-5.0) mmol/L Chloride (98-107) mmol/L Carbon Dioxide (21-33) mmol/L Anion Gap (10-20) BUN (7-21) mg/dL Creatinine (0.8-1.5) mg/dl Est GFR ( Amer) Est GFR (Non-Af Amer) POC Glucose (mg/dL) 118 H (65-110) mg/dL Random Glucose (70-110) mg/dL Hemoglobin A1c (4.2-6.5) % Calcium (8.4-10.5) mg/dL Phosphorus (2.5-4.5) mg/dL Magnesium (1.7-2.2) mg/dL Total Bilirubin (0.2-1.3) mg/dL AST (17-59) U/L ALT (7-56) U/L Alkaline Phosphatase (38-126) U/L Total Protein (5.8-8.3) g/dL Albumin (3.0-4.8) g/dL Globulin gm/dL Albumin/Globulin Ratio (1.1-1.8) Blood Type Antibody Screen Crossmatch BBK History Checked 05/01/18 05/01/18 04/30/18 Range/Units 18:04 16:36 19:57 WBC 6.2 (4.5-11.0) 10^3/ul RBC 3.07 L (3.5-6.1) 10^6/uL Hgb 9.3 L (14.0-18.0) g/dL Hct 27.2 L (42.0-52.0) % MCV 88.6 (80.0-105.0) fl MCH 30.3 (25.0-35.0) pg MCHC 34.2 (31.0-37.0) g/dl RDW 13.0 (11.5-14.5) % Plt Count 288 (120.0-450.0) 10^3/uL MPV 11.5 H (7.0-11.0) fl Sodium (132-148) mmol/L Potassium (3.6-5.0) mmol/L Chloride (98-107) mmol/L Carbon Dioxide (21-33) mmol/L Anion Gap (10-20) BUN (7-21) mg/dL Creatinine (0.8-1.5) mg/dl Est GFR ( Amer) Est GFR (Non-Af Amer) POC Glucose (mg/dL) 125 H (65-110) mg/dL Random Glucose (70-110) mg/dL Hemoglobin A1c (4.2-6.5) % Calcium (8.4-10.5) mg/dL Phosphorus (2.5-4.5) mg/dL Magnesium (1.7-2.2) mg/dL Total Bilirubin (0.2-1.3) mg/dL AST (17-59) U/L ALT (7-56) U/L Alkaline Phosphatase (38-126) U/L Total Protein (5.8-8.3) g/dL Albumin (3.0-4.8) g/dL Globulin gm/dL Albumin/Globulin Ratio (1.1-1.8) Blood Type O POSITIVE Antibody Screen Negative Crossmatch See Detail BBK History Checked No verified bt 04/30/18 Range/Units 16:46 WBC (4.5-11.0) 10^3/ul RBC (3.5-6.1) 10^6/uL Hgb (14.0-18.0) g/dL Hct (42.0-52.0) % MCV (80.0-105.0) fl MCH (25.0-35.0) pg MCHC (31.0-37.0) g/dl RDW (11.5-14.5) % Plt Count (120.0-450.0) 10^3/uL MPV (7.0-11.0) fl Sodium (132-148) mmol/L Potassium (3.6-5.0) mmol/L Chloride (98-107) mmol/L Carbon Dioxide (21-33) mmol/L Anion Gap (10-20) BUN (7-21) mg/dL Creatinine (0.8-1.5) mg/dl Est GFR ( Amer) Est GFR (Non-Af Amer) POC Glucose (mg/dL) (65-110) mg/dL Random Glucose (70-110) mg/dL Hemoglobin A1c 9.7 H (4.2-6.5) % Calcium (8.4-10.5) mg/dL Phosphorus (2.5-4.5) mg/dL Magnesium (1.7-2.2) mg/dL Total Bilirubin (0.2-1.3) mg/dL AST (17-59) U/L ALT (7-56) U/L Alkaline Phosphatase (38-126) U/L Total Protein (5.8-8.3) g/dL Albumin (3.0-4.8) g/dL Globulin gm/dL Albumin/Globulin Ratio (1.1-1.8) Blood Type Antibody Screen Crossmatch BBK History Checked Laboratory Results - last 24 hr 04/30/18 04/30/18 05/01/18 16:46 19:57 16:36 WBC RBC Hgb Hct MCV MCH MCHC RDW Plt Count MPV Sodium Potassium Chloride Carbon Dioxide Anion Gap BUN Creatinine Est GFR ( Amer) Est GFR (Non-Af Amer) POC Glucose (mg/dL) 125 H Random Glucose Hemoglobin A1c 9.7 H Calcium Phosphorus Magnesium Total Bilirubin AST ALT Alkaline Phosphatase Total Protein Albumin Globulin Albumin/Globulin Ratio Blood Type O POSITIVE Antibody Screen Negative Crossmatch See Detail BBK History Checked No verified bt 05/01/18 05/01/18 05/02/18 18:04 21:45 02:25 WBC 6.2 6.0 RBC 3.07 L 2.70 L Hgb 9.3 L 8.3 L Hct 27.2 L 23.9 L MCV 88.6 88.5 MCH 30.3 30.7 MCHC 34.2 34.7 RDW 13.0 13.2 Plt Count 288 252 MPV 11.5 H 10.5 Sodium Potassium Chloride Carbon Dioxide Anion Gap BUN Creatinine Est GFR ( Amer) Est GFR (Non-Af Amer) POC Glucose (mg/dL) 118 H Random Glucose Hemoglobin A1c Calcium Phosphorus Magnesium Total Bilirubin AST ALT Alkaline Phosphatase Total Protein Albumin Globulin Albumin/Globulin Ratio Blood Type Antibody Screen Crossmatch BBK History Checked 05/02/18 05/02/18 05/02/18 06:40 06:40 07:29 WBC 7.1 RBC 3.04 L Hgb 9.2 L Hct 27.3 L MCV 89.8 MCH 30.3 MCHC 33.7 RDW 13.4 Plt Count 289 MPV 11.0 Sodium 143 Potassium 4.0 Chloride 118 H Carbon Dioxide 17 L Anion Gap 12 BUN 19 Creatinine 1.0 Est GFR ( Amer) > 60 Est GFR (Non-Af Amer) > 60 POC Glucose (mg/dL) 94 Random Glucose 92 Hemoglobin A1c Calcium 8.6 Phosphorus 2.9 Magnesium 2.0 Total Bilirubin 0.6 AST 26 ALT 25 Alkaline Phosphatase 42 Total Protein 5.5 L Albumin 3.0 Globulin 2.5 Albumin/Globulin Ratio 1.2 Blood Type Antibody Screen Crossmatch BBK History Checked 05/02/18 11:12 WBC RBC Hgb Hct MCV MCH MCHC RDW Plt Count MPV Sodium Potassium Chloride Carbon Dioxide Anion Gap BUN Creatinine Est GFR ( Amer) Est GFR (Non-Af Amer) POC Glucose (mg/dL) 76 Random Glucose Hemoglobin A1c Calcium Phosphorus Magnesium Total Bilirubin AST ALT Alkaline Phosphatase Total Protein Albumin Globulin Albumin/Globulin Ratio Blood Type Antibody Screen Crossmatch BBK History Checked Fingerstick Blood Sugar Results: 76 Review of Systems - Constitutional Constitutional: absent: Fever, Chills, Sweats - EENT Eyes: absent: Change in Vision Ears: absent: Decreased Hearing Nose/Mouth/Throat: absent: Dysphagia - Cardiovascular Cardiovascular: absent: Chest Pain, Chest Pain at Rest, Chest Pain with Activity, Diaphoresis, Dyspnea - Respiratory Respiratory: absent: Cough, Dyspnea, Dyspnea on Exertion - Gastrointestinal Gastrointestinal: Hematochezia. absent: Abdominal Pain, Constipation, Diarrhea, Nausea - Genitourinary Genitourinary: absent: Dysuria, Hematuria - Musculoskeletal Musculoskeletal: absent: Abnormal Gait, Back Pain, Myalgias - Neurological Neurological: absent: Confusion, Numbness, Tingling, Tremor - Psychiatric Psychiatric: absent: Anxiety, Depression Critical Care Progress Note - Ventilator Checklist Head of Bed 30 Degrees: Yes PUD Prophalyxis: Yes DVT Prophylaxis: Yes - Extremities/Vascular Does the Patient have a Central Venous Catheter?: No Does the Patient need a Central Venous Catheter?: No Does the Patient have a Barrios Catheter?: No - Nutrition Nutrition: Nutrition Category Date Time Status Liquid Diet [DIET] Diets 05/02/18 Lunch Ordered NPO Diet [DIET] Diets 05/03/18 Breakfast Ordered Assessment/Plan - Assessment and Plan (Free Text) Assessment: 68 year old male with past medical history of diabetes, coronary artery disease, caludifcation presents with right lower extremity pain and lighthededness while shopping on 10.6. Patient felt pain in leg that shot up pin leading to lightheadedness, dizziness, and he hit the ground. Patient reports first hitting his gluteal muscle and subsequently the back of his head. Patient had a bloody bowel movement in the ER. Patient was later found to have a hemoglobin of 6.5 and was transfused 3 U of PRBCs. Plan: Neuro: -AAOx3, no FND, moving extremities past midline. -Monitor neuro status. -Reorient patient as necessary. Cardio: -RRR, normotensive, no signs of HD compromise -EKG: normal sinus rhythm with HR: 84 -Maintain MAP>65. -Monitor for S/S, HD compromise. Pulm: -No signs of respiratory distress. CTA B/L -Patient is stating well on room air. -VBG 106: pH: 7.35, Lactate: 0.9 from 2.2 -CXR: no acute disease -Maintain O2 saturation>95%. GI: -Patient to be NPO from liquid diet. -GI bleeding scan: source of bleeding is from the rectum. -Plan for endoscopy and colonoscopy tomorrow as per GI. -Golytely prep tonight -Protonix 40 mg daily /Nephro: -BUN/Cr stable at 19/1. -UA ordered. -Good urine output -Continue monitoring. -Patient's bicarbonate level mildly decreased at 17. Continue to monitor. -Replete electrolytes as needed. -Maintain euvolemia. Endocrinology: -Random glucose: 92 -Maintain euglycemia. Heme/Onc: -H/H stable at 9.2/27.3. Patient has received 3 U of PRBCs for decreased hemoglobin on presentation at 6.5. -No signs of HD compromise. -Continue monitoring H/H ID: -Afebrile, no leukocytosis -Lactate: 0.9 from 2.2. -Monitor for signs and symptoms of infection. DVT prophylaxis: SCD GI prophylaxis: protonix 40 mg daily Patient case discussed with Dr. Bowers. - Date & Time Date: 05/02/18 Time: 15:05 <Edward Bowers - Last Filed: 05/02/18 16:58> CCU Objective - Vital Signs / Intake & Output Vital Signs (Last 4 hours): Vital Signs Temp Pulse Resp BP Pulse Ox 05/02/18 16:44 97.6 F 98 H 20 128/70 99 05/02/18 13:50 112 H 67 H 05/02/18 13:40 106 H 17 05/02/18 13:30 97 H 15 99 05/02/18 13:20 97 H 15 99 05/02/18 13:10 103 H 17 99 05/02/18 13:00 109 H 118 H 125/58 L 100 Intake and Output (Last 8hrs): Intake & Output 05/02/18 05/02/18 05/02/18 06:59 14:59 22:59 Intake Total 1640 Output Total 900 Balance 740 Weight 147 lb Intake: IV 1640 0.9 ns 1200 protonix 440 Output: Urine 900 Urine, Voided 900 Other: # Bowel Movements 1 - Medications Active Medications: Active Medications Generic Name Dose Route Start Last Admin Trade Name Freq PRN Reason Stop Dose Admin Sodium Chloride 1,000 mls @ 100 mls/hr 04/30/18 22:15 05/02/18 12:51 Sodium Chloride 0.9% IV 100 mls/hr .Q10H LOUIE Administration Insulin Human Regular 0 units 05/01/18 11:30 05/02/18 12:46 Humulin R Med SC Not Given [facility] Protocol Morphine Sulfate 2 mg 05/01/18 02:10 05/02/18 05:43 Morphine IVP 2 mg Q4H PRN Administration Pain Pantoprazole Sodium 40 mg 05/02/18 22:00 Protonix Inj IVP Q12 [facility] - Patient Studies Lab Studies: Microbiology Studies 05/01/18 00:55 MRSA Culture (Admit) - Final Nose MRSA NOT DETECTED Lab Studies 05/02/18 05/02/18 05/02/18 Range/Units 16:02 11:12 07:29 WBC (4.5-11.0) 10^3/ul RBC (3.5-6.1) 10^6/uL Hgb (14.0-18.0) g/dL Hct (42.0-52.0) % MCV (80.0-105.0) fl MCH (25.0-35.0) pg MCHC (31.0-37.0) g/dl RDW (11.5-14.5) % Plt Count (120.0-450.0) 10^3/uL MPV (7.0-11.0) fl Sodium (132-148) mmol/L Potassium (3.6-5.0) mmol/L Chloride (98-107) mmol/L Carbon Dioxide (21-33) mmol/L Anion Gap (10-20) BUN (7-21) mg/dL Creatinine (0.8-1.5) mg/dl Est GFR ( Amer) Est GFR (Non-Af Amer) POC Glucose (mg/dL) 224 H 76 94 (65-110) mg/dL Random Glucose (70-110) mg/dL Hemoglobin A1c (4.2-6.5) % Calcium (8.4-10.5) mg/dL Phosphorus (2.5-4.5) mg/dL Magnesium (1.7-2.2) mg/dL Total Bilirubin (0.2-1.3) mg/dL AST (17-59) U/L ALT (7-56) U/L Alkaline Phosphatase (38-126) U/L Total Protein (5.8-8.3) g/dL Albumin (3.0-4.8) g/dL Globulin gm/dL Albumin/Globulin Ratio (1.1-1.8) Crossmatch 05/02/18 05/02/18 05/02/18 Range/Units 06:40 06:40 02:25 WBC 7.1 6.0 (4.5-11.0) 10^3/ul RBC 3.04 L 2.70 L (3.5-6.1) 10^6/uL Hgb 9.2 L 8.3 L (14.0-18.0) g/dL Hct 27.3 L 23.9 L (42.0-52.0) % MCV 89.8 88.5 (80.0-105.0) fl MCH 30.3 30.7 (25.0-35.0) pg MCHC 33.7 34.7 (31.0-37.0) g/dl RDW 13.4 13.2 (11.5-14.5) % Plt Count 289 252 (120.0-450.0) 10^3/uL MPV 11.0 10.5 (7.0-11.0) fl Sodium 143 (132-148) mmol/L Potassium 4.0 (3.6-5.0) mmol/L Chloride 118 H (98-107) mmol/L Carbon Dioxide 17 L (21-33) mmol/L Anion Gap 12 (10-20) BUN 19 (7-21) mg/dL Creatinine 1.0 (0.8-1.5) mg/dl Est GFR ( Amer) > 60 Est GFR (Non-Af Amer) > 60 POC Glucose (mg/dL) (65-110) mg/dL Random Glucose 92 (70-110) mg/dL Hemoglobin A1c (4.2-6.5) % Calcium 8.6 (8.4-10.5) mg/dL Phosphorus 2.9 (2.5-4.5) mg/dL Magnesium 2.0 (1.7-2.2) mg/dL Total Bilirubin 0.6 (0.2-1.3) mg/dL AST 26 (17-59) U/L ALT 25 (7-56) U/L Alkaline Phosphatase 42 (38-126) U/L Total Protein 5.5 L (5.8-8.3) g/dL Albumin 3.0 (3.0-4.8) g/dL Globulin 2.5 gm/dL Albumin/Globulin Ratio 1.2 (1.1-1.8) Crossmatch 05/01/18 05/01/18 05/01/18 Range/Units 21:45 18:04 16:36 WBC 6.2 (4.5-11.0) 10^3/ul RBC 3.07 L (3.5-6.1) 10^6/uL Hgb 9.3 L (14.0-18.0) g/dL Hct 27.2 L (42.0-52.0) % MCV 88.6 (80.0-105.0) fl MCH 30.3 (25.0-35.0) pg MCHC 34.2 (31.0-37.0) g/dl RDW 13.0 (11.5-14.5) % Plt Count 288 (120.0-450.0) 10^3/uL MPV 11.5 H (7.0-11.0) fl Sodium (132-148) mmol/L Potassium (3.6-5.0) mmol/L Chloride (98-107) mmol/L Carbon Dioxide (21-33) mmol/L Anion Gap (10-20) BUN (7-21) mg/dL Creatinine (0.8-1.5) mg/dl Est GFR ( Amer) Est GFR (Non-Af Amer) POC Glucose (mg/dL) 118 H 125 H (65-110) mg/dL Random Glucose (70-110) mg/dL Hemoglobin A1c (4.2-6.5) % Calcium (8.4-10.5) mg/dL Phosphorus (2.5-4.5) mg/dL Magnesium (1.7-2.2) mg/dL Total Bilirubin (0.2-1.3) mg/dL AST (17-59) U/L ALT (7-56) U/L Alkaline Phosphatase (38-126) U/L Total Protein (5.8-8.3) g/dL Albumin (3.0-4.8) g/dL Globulin gm/dL Albumin/Globulin Ratio (1.1-1.8) Crossmatch 04/30/18 04/30/18 Range/Units 19:57 16:46 WBC (4.5-11.0) 10^3/ul RBC (3.5-6.1) 10^6/uL Hgb (14.0-18.0) g/dL Hct (42.0-52.0) % MCV (80.0-105.0) fl MCH (25.0-35.0) pg MCHC (31.0-37.0) g/dl RDW (11.5-14.5) % Plt Count (120.0-450.0) 10^3/uL MPV (7.0-11.0) fl Sodium (132-148) mmol/L Potassium (3.6-5.0) mmol/L Chloride (98-107) mmol/L Carbon Dioxide (21-33) mmol/L Anion Gap (10-20) BUN (7-21) mg/dL Creatinine (0.8-1.5) mg/dl Est GFR ( Amer) Est GFR (Non-Af Amer) POC Glucose (mg/dL) (65-110) mg/dL Random Glucose (70-110) mg/dL Hemoglobin A1c 9.7 H (4.2-6.5) % Calcium (8.4-10.5) mg/dL Phosphorus (2.5-4.5) mg/dL Magnesium (1.7-2.2) mg/dL Total Bilirubin (0.2-1.3) mg/dL AST (17-59) U/L ALT (7-56) U/L Alkaline Phosphatase (38-126) U/L Total Protein (5.8-8.3) g/dL Albumin (3.0-4.8) g/dL Globulin gm/dL Albumin/Globulin Ratio (1.1-1.8) Crossmatch See Detail Laboratory Results - last 24 hr 04/30/18 04/30/18 05/01/18 16:46 19:57 16:36 WBC RBC Hgb Hct MCV MCH MCHC RDW Plt Count MPV Sodium Potassium Chloride Carbon Dioxide Anion Gap BUN Creatinine Est GFR ( Amer) Est GFR (Non-Af Amer) POC Glucose (mg/dL) 125 H Random Glucose Hemoglobin A1c 9.7 H Calcium Phosphorus Magnesium Total Bilirubin AST ALT Alkaline Phosphatase Total Protein Albumin Globulin Albumin/Globulin Ratio Crossmatch See Detail 05/01/18 05/01/18 05/02/18 18:04 21:45 02:25 WBC 6.2 6.0 RBC 3.07 L 2.70 L Hgb 9.3 L 8.3 L Hct 27.2 L 23.9 L MCV 88.6 88.5 MCH 30.3 30.7 MCHC 34.2 34.7 RDW 13.0 13.2 Plt Count 288 252 MPV 11.5 H 10.5 Sodium Potassium Chloride Carbon Dioxide Anion Gap BUN Creatinine Est GFR ( Amer) Est GFR (Non-Af Amer) POC Glucose (mg/dL) 118 H Random Glucose Hemoglobin A1c Calcium Phosphorus Magnesium Total Bilirubin AST ALT Alkaline Phosphatase Total Protein Albumin Globulin Albumin/Globulin Ratio Crossmatch 05/02/18 05/02/18 05/02/18 06:40 06:40 07:29 WBC 7.1 RBC 3.04 L Hgb 9.2 L Hct 27.3 L MCV 89.8 MCH 30.3 MCHC 33.7 RDW 13.4 Plt Count 289 MPV 11.0 Sodium 143 Potassium 4.0 Chloride 118 H Carbon Dioxide 17 L Anion Gap 12 BUN 19 Creatinine 1.0 Est GFR ( Amer) > 60 Est GFR (Non-Af Amer) > 60 POC Glucose (mg/dL) 94 Random Glucose 92 Hemoglobin A1c Calcium 8.6 Phosphorus 2.9 Magnesium 2.0 Total Bilirubin 0.6 AST 26 ALT 25 Alkaline Phosphatase 42 Total Protein 5.5 L Albumin 3.0 Globulin 2.5 Albumin/Globulin Ratio 1.2 Crossmatch 05/02/18 05/02/18 11:12 16:02 WBC RBC Hgb Hct MCV MCH MCHC RDW Plt Count MPV Sodium Potassium Chloride Carbon Dioxide Anion Gap BUN Creatinine Est GFR ( Amer) Est GFR (Non-Af Amer) POC Glucose (mg/dL) 76 224 H Random Glucose Hemoglobin A1c Calcium Phosphorus Magnesium Total Bilirubin AST ALT Alkaline Phosphatase Total Protein Albumin Globulin Albumin/Globulin Ratio Crossmatch Critical Care Progress Note - Nutrition Nutrition: Nutrition Category Date Time Status Liquid Diet [DIET] Diets 05/02/18 Lunch Ordered NPO Diet [DIET] Diets 05/03/18 Breakfast Ordered Attending/Attestation - Attestation I have personally seen and examined this patient.: Yes I have fully participated in the care of the patient.: Yes I have reviewed all pertinent clinical information: Yes Notes (Text): 05/02/18 16:57 68 yo male with lower GI bleed. Hemodynamically and respiratory stable. Hb stable. No active bleed. Ok to downgrade to remote tele. discussed with GI and PMD
[2018-05-02] MEDS ORDERED: Peg-Electrolyte Oral Soln 4L (Golytely) PO ONE (16:00)
--- NOTE | 2018-05-02 16:47 | HP ---
DATE OF EXAM: 04/30/2018 HISTORY OF PRESENT ILLNESS: The patient was examined in the [facility] ER on the evening of 04/30/2018. He will be admitted to critical care CCU. The patient presented with gastrointestinal bleeding, which is active at present and story is this 68-year-old male presented to the [facility] ER because of weakness and GI bleeding and in my presence, passed a bright red blood per rectum. His old medical record was reviewed when he was last at the [facility] in 09/2016. At that time, he had fallen at home and sustained a left pelvic and left iliac crest fracture and was sent to subacute rehab for further treatment of the above. At that time, he was noted to be an insulin-dependent diabetic with iron-deficiency anemia. He had been in the [facility] where review of his report showed that he had a retained biliary stent and has had a colonoscopy and endoscopy in 2016 that did not show any significant abnormalities. Today, the patient presented to the [facility] ER complaining of right leg pain and lightheadedness. He was in a store, fell backwards, apparently hit his head and came to the emergency room where he was noted to have GI bleeding. He is being admitted to critical care regarding the above. OUTPATIENT MEDICATIONS: Included metformin, Januvia, Protonix, Megace, insulin, Klonopin and Ultram. ALLERGIES: THE PATIENT HAS NO KNOWN ALLERGIES TO MEDICATION. SOCIAL HISTORY: He is a nondrinker, nonsmoker, non IV drug misuser. He is a retired gentleman on Medicare disability. FAMILY HISTORY: Noncontributory. REVIEW OF SYSTEMS: Constitutional: There were no reports of fever or chills. Head: No headache. Eyes: No change in visual acuity. Ears: No hearing loss. Throat: No swallowing difficulty. Neck: No stiffness. Cardiac review: No chest pain. No palpitation. Pulmonary: No cough. No hemoptysis. GI: He is having bright red blood per rectum at present. : No dysuria. Skin: No rash. Vascular: No claudication. Psychological: Chronic anxiety. Neurological: Denied any knowledge of stroke. PHYSICAL EXAMINATION: VITAL SIGNS: In the emergency room, his temperature was 98.3, respirations 18, pulse 89 and blood pressure 123/70 with a pulse ox of 97% on room air. HEENT: Head: Normocephalic, atraumatic. Eyes: No icterus. Ears: Clear. Throat: Noninjected. NECK: Supple. HEART: Regular S1, S2. LUNGS: Clear. ABDOMEN: Soft. No rebound. No guarding. EXTREMITIES: No edema. SKIN: Without rash. NEUROLOGICAL: Deconditioned. VASCULAR: Legs warm to touch. PSYCHOLOGICAL: Mild anxiety. LABORATORY DATA: His labs showed white count 12,300, hemoglobin 9.5, hematocrit 28.7, platelets 413,000. PT/INR 1, PTT 29. Sodium 136, K 5.5, chloride 103, bicarb 19, BUN 44, creatinine 1.7, random blood sugar 352, calcium 9.9, magnesium 2.1, bilirubin 0.5, AST 30, ALT 34, alk phos 81. CPK 121, troponin less than 0.01. TSH 4.67, normal. Chest x-ray was reviewed. It showed no active pulmonary disease. There were no pleural effusions, no pneumothorax, no congestive heart failure, no obvious pneumonic infiltrate. EKG was reviewed. It showed normal sinus rhythm with nonspecific ST-T wave changes. Head CT was reviewed. It showed no intracranial hemorrhage. No mass, no edema. There was chronic encephalomalacia in his right frontal white matter, unchanged. No acute findings were noted. A bilateral venous Doppler ultrasound was reviewed, which showed no sonographic evidence for deep venous thrombosis in either lower extremity. IMPRESSION: A 68-year-old male with active gastrointestinal bleeding and comorbidities of insulin-dependent diabetes mellitus, anemia, anxiety, degenerative arthritis. As discussed with the daughters at bedside and emergency room nursing, we will admit this patient to ICU given active gastrointestinal bleeding and call consultations with Dr. Karen Gupta from GI, Dr. Isidoro Shankar from Hematology/Oncology and Dr. Marcus Bateman from Surgery. The patient will need to have his hemoglobin and hematocrit monitored closely and probable blood transfusion later this evening and IV Protonix 40 mg will be ordered stat probably to be replaced by an IV Protonix drip. This case was discussed in detail with nursing and operating room surgical technician as well as the patient and family. Greater than 75 minutes was spent in the care and management, review of labs, orders and x-rays and outlining of treatment plan for this patient today. All questions were answered. Amber Elizabeth MD [facility] # [id number]
--- NOTE | 2018-05-02 17:03 | CP.PCM.PN ---
Subjective - Date & Time of Evaluation Date of Evaluation: 05/02/18 Time of Evaluation: 07:00 - Subjective Subjective: Patient seen and examined. No acute events over night. Hgb 9.2 from 6.5 s/p 3uPRBC transfusion. Objective - Vital Signs/Intake and Output Vital Signs (last 24 hours): Temp Pulse Resp BP Pulse Ox 97.6 F 98 H 20 128/70 99 05/02/18 16:44 05/02/18 16:44 05/02/18 16:44 05/02/18 16:44 05/02/18 16:44 Intake and Output: 05/02/18 05/02/18 06:59 18:59 Intake Total 1640 Output Total 900 Balance 740 - Medications Medications: Current Medications Sodium Chloride (Sodium Chloride 0.9%) 1,000 mls @ 100 mls/hr IV .Q10H [facility] Last Admin: 05/02/18 12:51 Dose: 100 mls/hr Insulin Human Regular (Humulin R Med) 0 units SC ACHS [facility]; Protocol Last Admin: 05/02/18 12:46 Dose: Not Given Morphine Sulfate (Morphine) 2 mg IVP Q4H PRN PRN Reason: Pain Last Admin: 05/02/18 05:43 Dose: 2 mg Pantoprazole Sodium (Protonix Inj) 40 mg IVP Q12 [facility] - Labs Labs: 05/02/18 06:40 05/02/18 06:40 PT 11.5 SECONDS (9.4-12.5) 04/30/18 16:46 INR 1.01 04/30/18 16:46 APTT 29.0 Seconds (25.1-36.5) 04/30/18 16:46 - Constitutional Appears: No Acute Distress - Eye Exam Eye Exam: EOMI, Normal appearance - Cardiovascular Exam Cardiovascular Exam: +S1, +S2 - GI/Abdominal Exam GI & Abdominal Exam: Soft - Neurological Exam Neurological Exam: Alert, Awake, Oriented x3 - Psychiatric Exam Psychiatric exam: Normal Mood - Skin Skin Exam: Dry, Intact, Warm Assessment and Plan - Assessment and Plan (Free Text) Assessment: 68M with lower GI bleed. Currently no active bleed. Hgb stable. Plan: Monitor Hgb transfuse prn Scheduled for colonoscopy tomorrow Will follow up Cscopy results No acute surgical intervention at this present time Will continue to monitor D/w Dr. Fransico Early PGY3
[2018-05-02 23:37] LABS: BASO # 0.1 K/mm3 (0.0-2.0); BASO % 1.2 % (0.0-3.0); EOS # 0.8 (0.0-0.7); EOS % 9.1 % (1.5-5.0); GRAN # 5.5 (1.4-6.5); GRAN % 63.6 % (50.0-68.0); HEMOGLOBIN 7.7 g/dL (14.0-18.0); LYMPH # 1.4 (1.2-3.4); LYMPH % 16.7 % (22.0-35.0); MEAN CELL VOLUME 90.1 fl (80.0-105.0); MEAN CORPUSCULAR HEMOGLOBIN 30.6 pg (25.0-35.0); MEAN CORPUSCULAR HGB CONC 33.9 g/dl (31.0-37.0); MEAN PLATELET VOLUME 11.3 fl (7.0-11.0); MONO # 0.8 (0.1-0.6); MONO % 9.4 % (1.0-6.0); RBC 2.52 10^6/uL (3.5-6.1); RED CELL DISTRIBUTION WIDTH 13.4 % (11.5-14.5); WHITE BLOOD COUNT 8.6 10^3/ul (4.5-11.0)
--- NOTE | 2018-05-03 00:35 | CP.PCM.CON ---
<Wyatt Valenzuela - Last Filed: 05/03/18 00:53> History of Present Illness - History of Present Illness History of Present Illness: ICU consult note 68 year old male with a past medical history of DM II and PVD who admitted for syncope and was found to rectal bleeding on GI bleeding scan and was then drank a gallon of Go-lyteley to prep for a colonoscopy. The patient naturally had some diarrhea and with that diarrhea came some blood. He remains sitting on the toilet at the time of my examination. He is not short of breath or lightheaded. He does report feeling weak and admits to passing a lot of blood per rectum. Nurse reports Dr. Gupta request for ICU admission. We gladly accept the patient to ICU though there are no beds to accommodate the patient tonight. We recommend transfusions and repeat H&H an hour or so after transfusion. PMH: diverticulosis, DM, PAD, and arthritis PSH: cholecystectomy, cataract surgery, right foot surgery SH: Denies Allergies: NKDA Review of Systems - Review of Systems All systems: reviewed and no additional remarkable complaints except (as per HPI) Past Patient History - Infectious Disease Hx of Infectious Diseases: None - Past Social History Smoking Status: Never Smoked - CARDIAC Hx Cardiac Disorders: No - PULMONARY Hx Respiratory Disorders: No - NEUROLOGICAL Hx Neurological Disorder: No - HEENT Hx HEENT Problems: No - RENAL Hx Chronic Kidney Disease: No - ENDOCRINE/METABOLIC Hx Endocrine Disorders: Yes Hx Diabetes Mellitus Type 2: Yes - HEMATOLOGICAL/ONCOLOGICAL Hx Blood Disorders: No - INTEGUMENTARY Hx Dermatological Problems: No - MUSCULOSKELETAL/RHEUMATOLOGICAL Hx Musculoskeletal Disorders: No - GASTROINTESTINAL Hx Gastrointestinal Disorders: No - GENITOURINARY/GYNECOLOGICAL Hx Genitourinary Disorders: No - PSYCHIATRIC Hx Psychophysiologic Disorder: No Hx Substance Use: No - SURGICAL HISTORY Other/Comment: bladder - ANESTHESIA Hx Anesthesia: No Meds Allergies/Adverse Reactions: Allergies Allergy/AdvReac Type Severity Reaction Status Date / Time No Known Allergies Allergy Verified 09/24/16 12:44 - Medications Medications: Current Medications Sodium Chloride (Sodium Chloride 0.9%) 1,000 mls @ 100 mls/hr IV .Q10H [facility] Last Admin: 05/02/18 22:08 Dose: 100 mls/hr Insulin Human Regular (Humulin R Med) 0 units SC ACHS [facility]; Protocol Last Admin: 05/02/18 22:03 Dose: Not Given Morphine Sulfate (Morphine) 2 mg IVP Q4H PRN PRN Reason: Pain Last Admin: 05/02/18 05:43 Dose: 2 mg Pantoprazole Sodium (Protonix Inj) 40 mg IVP Q12 [facility] Last Admin: 05/02/18 22:04 Dose: 40 mg Physical Exam - Constitutional Appears: Non-toxic - Head Exam Head Exam: ATRAUMATIC, NORMOCEPHALIC - Eye Exam Eye Exam: EOMI, Normal appearance - ENT Exam ENT Exam: Mucous Membranes Moist - Neck Exam Neck exam: Positive for: Normal Inspection - Respiratory Exam Respiratory Exam: Clear to Auscultation Bilateral, NORMAL BREATHING PATTERN - Cardiovascular Exam Cardiovascular Exam: Tachycardia, RRR, +S1, +S2 - GI/Abdominal Exam GI & Abdominal Exam: absent: Guarding, Rebound - Rectal Exam Rectal Exam: Deferred - Extremities Exam Extremities exam: Positive for: normal inspection. Negative for: calf tenderness - Neurological Exam Neurological exam: Alert, CN II-XII Intact, Oriented x3 - Psychiatric Exam Psychiatric exam: Normal Affect, Normal Mood - Skin Skin Exam: Dry, Intact, Normal Color, Warm Results - Vital Signs Recent Vital Signs: Last Vital Signs Temp 97.6 F 05/02/18 16:44 Pulse 98 H 05/02/18 16:44 Resp 20 05/02/18 16:44 BP 128/70 05/02/18 16:44 Pulse Ox 99 05/02/18 16:44 - Labs Result Diagrams: 05/02/18 23:28 05/02/18 06:40 Labs: Laboratory Results - last 24 hr 04/30/18 05/02/18 05/02/18 16:46 02:25 06:40 WBC 6.0 7.1 RBC 2.70 L 3.04 L Hgb 8.3 L 9.2 L Hct 23.9 L 27.3 L MCV 88.5 89.8 MCH 30.7 30.3 MCHC 34.7 33.7 RDW 13.2 13.4 Plt Count 252 289 MPV 10.5 11.0 Gran % Lymph % (Auto) Warren % (Auto) Eos % (Auto) Baso % (Auto) Gran # Lymph # (Auto) Warren # (Auto) Eos # (Auto) Baso # (Auto) Sodium Potassium Chloride Carbon Dioxide Anion Gap BUN Creatinine Est GFR ( Amer) Est GFR (Non-Af Amer) POC Glucose (mg/dL) Random Glucose Hemoglobin A1c 9.7 H Calcium Phosphorus Magnesium Total Bilirubin AST ALT Alkaline Phosphatase Total Protein Albumin Globulin Albumin/Globulin Ratio 05/02/18 05/02/18 05/02/18 06:40 07:29 11:12 WBC RBC Hgb Hct MCV MCH MCHC RDW Plt Count MPV Gran % Lymph % (Auto) Warren % (Auto) Eos % (Auto) Baso % (Auto) Gran # Lymph # (Auto) Warren # (Auto) Eos # (Auto) Baso # (Auto) Sodium 143 Potassium 4.0 Chloride 118 H Carbon Dioxide 17 L Anion Gap 12 BUN 19 Creatinine 1.0 Est GFR ( Amer) > 60 Est GFR (Non-Af Amer) > 60 POC Glucose (mg/dL) 94 76 Random Glucose 92 Hemoglobin A1c Calcium 8.6 Phosphorus 2.9 Magnesium 2.0 Total Bilirubin 0.6 AST 26 ALT 25 Alkaline Phosphatase 42 Total Protein 5.5 L Albumin 3.0 Globulin 2.5 Albumin/Globulin Ratio 1.2 05/02/18 05/02/18 05/02/18 16:02 21:10 23:28 WBC 8.6 D RBC 2.52 L Hgb 7.7 L Hct 22.7 L MCV 90.1 MCH 30.6 MCHC 33.9 RDW 13.4 Plt Count 354 MPV 11.3 H Gran % 63.6 Lymph % (Auto) 16.7 L Warren % (Auto) 9.4 H Eos % (Auto) 9.1 H Baso % (Auto) 1.2 Gran # 5.50 Lymph # (Auto) 1.4 Warren # (Auto) 0.8 H Eos # (Auto) 0.8 H Baso # (Auto) 0.10 Sodium Potassium Chloride Carbon Dioxide Anion Gap BUN Creatinine Est GFR ( Amer) Est GFR (Non-Af Amer) POC Glucose (mg/dL) 224 H 118 H Random Glucose Hemoglobin A1c Calcium Phosphorus Magnesium Total Bilirubin AST ALT Alkaline Phosphatase Total Protein Albumin Globulin Albumin/Globulin Ratio Assessment & Plan - Assessment and Plan (Free Text) Assessment: 68 year old male with a past medical history of diverticulosis, PVD, and DM II who presents for a syncopal episode and was noted to haverectal bleeding on GI scan. He drank a gallon of Go-lytelywhich exacerbated his rectal bleeding and then required 2 Units of PRBCs . Patient is hemodynamically stable and would benefit from supportive care. We see no harm in admitting the patient to ICU at this time, but given the lack of beds he should remain on a youth nutritional monitor with 2 L NC. Case was reviewed and discussed with attending physician, Dr. Tuttle - Date & Time Date: 05/03/18 Time: 00:44 <Akosua Tuttle - Last Filed: 05/03/18 02:13> Meds - Medications Medications: Current Medications Sodium Chloride (Sodium Chloride 0.9%) 1,000 mls @ 100 mls/hr IV .Q10H [facility] Last Admin: 05/02/18 22:08 Dose: 100 mls/hr Insulin Human Regular (Humulin R Med) 0 units SC ACHS [facility]; Protocol Last Admin: 05/02/18 22:03 Dose: Not Given Morphine Sulfate (Morphine) 2 mg IVP Q4H PRN PRN Reason: Pain Last Admin: 05/02/18 05:43 Dose: 2 mg Pantoprazole Sodium (Protonix Inj) 40 mg IVP Q12 [facility] Last Admin: 05/02/18 22:04 Dose: 40 mg Results - Vital Signs Recent Vital Signs: Last Vital Signs Temp 98 F 05/03/18 01:00 Pulse 93 H 05/03/18 01:00 Resp 20 05/03/18 01:00 BP 107/65 05/03/18 01:00 Pulse Ox 99 05/02/18 16:44 - Labs Result Diagrams: 05/02/18 23:28 05/02/18 06:40 Labs: Laboratory Results - last 24 hr 04/30/18 04/30/18 05/02/18 16:46 19:57 02:25 WBC 6.0 RBC 2.70 L Hgb 8.3 L Hct 23.9 L MCV 88.5 MCH 30.7 MCHC 34.7 RDW 13.2 Plt Count 252 MPV 10.5 Gran % Lymph % (Auto) Warren % (Auto) Eos % (Auto) Baso % (Auto) Gran # Lymph # (Auto) Warren # (Auto) Eos # (Auto) Baso # (Auto) Sodium Potassium Chloride Carbon Dioxide Anion Gap BUN Creatinine Est GFR ( Amer) Est GFR (Non-Af Amer) POC Glucose (mg/dL) Random Glucose Hemoglobin A1c 9.7 H Calcium Phosphorus Magnesium Total Bilirubin AST ALT Alkaline Phosphatase Total Protein Albumin Globulin Albumin/Globulin Ratio Blood Type O POSITIVE Antibody Screen Negative Crossmatch See Detail BBK History Checked No verified bt 05/02/18 05/02/18 05/02/18 06:40 06:40 07:29 WBC 7.1 RBC 3.04 L Hgb 9.2 L Hct 27.3 L MCV 89.8 MCH 30.3 MCHC 33.7 RDW 13.4 Plt Count 289 MPV 11.0 Gran % Lymph % (Auto) Warren % (Auto) Eos % (Auto) Baso % (Auto) Gran # Lymph # (Auto) Warren # (Auto) Eos # (Auto) Baso # (Auto) Sodium 143 Potassium 4.0 Chloride 118 H Carbon Dioxide 17 L Anion Gap 12 BUN 19 Creatinine 1.0 Est GFR ( Amer) > 60 Est GFR (Non-Af Amer) > 60 POC Glucose (mg/dL) 94 Random Glucose 92 Hemoglobin A1c Calcium 8.6 Phosphorus 2.9 Magnesium 2.0 Total Bilirubin 0.6 AST 26 ALT 25 Alkaline Phosphatase 42 Total Protein 5.5 L Albumin 3.0 Globulin 2.5 Albumin/Globulin Ratio 1.2 Blood Type Antibody Screen Crossmatch BBK History Checked 05/02/18 05/02/18 05/02/18 11:12 16:02 21:10 WBC RBC Hgb Hct MCV MCH MCHC RDW Plt Count MPV Gran % Lymph % (Auto) Warren % (Auto) Eos % (Auto) Baso % (Auto) Gran # Lymph # (Auto) Warren # (Auto) Eos # (Auto) Baso # (Auto) Sodium Potassium Chloride Carbon Dioxide Anion Gap BUN Creatinine Est GFR ( Amer) Est GFR (Non-Af Amer) POC Glucose (mg/dL) 76 224 H 118 H Random Glucose Hemoglobin A1c Calcium Phosphorus Magnesium Total Bilirubin AST ALT Alkaline Phosphatase Total Protein Albumin Globulin Albumin/Globulin Ratio Blood Type Antibody Screen Crossmatch BBK History Checked 05/02/18 05/02/18 23:28 23:28 WBC 8.6 D RBC 2.52 L Hgb 7.7 L Hct 22.7 L MCV 90.1 MCH 30.6 MCHC 33.9 RDW 13.4 Plt Count 354 MPV 11.3 H Gran % 63.6 Lymph % (Auto) 16.7 L Warren % (Auto) 9.4 H Eos % (Auto) 9.1 H Baso % (Auto) 1.2 Gran # 5.50 Lymph # (Auto) 1.4 Warren # (Auto) 0.8 H Eos # (Auto) 0.8 H Baso # (Auto) 0.10 Sodium Potassium Chloride Carbon Dioxide Anion Gap BUN Creatinine Est GFR ( Amer) Est GFR (Non-Af Amer) POC Glucose (mg/dL) Random Glucose Hemoglobin A1c Calcium Phosphorus Magnesium Total Bilirubin AST ALT Alkaline Phosphatase Total Protein Albumin Globulin Albumin/Globulin Ratio Blood Type O POSITIVE Antibody Screen Negative Crossmatch See Detail BBK History Checked Patient has bt Attending/Attestation - Attestation I have personally seen and examined this patient.: Yes I have fully participated in the care of the patient.: Yes I have reviewed all pertinent clinical information: Yes
[2018-05-03] MEDS: Insulin Reg-MEDIUM-Coverage SC SCH ×4 (08:24→21:39)
[2018-05-03 08:52] LABS: BASO % 1.2 % (0.0-3.0); EOS # 0.5 (0.0-0.7); EOS % 8.9 % (1.5-5.0); GRAN # 3.92 (1.4-6.5); GRAN % 64.8 % (50.0-68.0); HEMOGLOBIN 8.6 g/dL (14.0-18.0); LYMPH # 0.8 (1.2-3.4); LYMPH % 12.9 % (22.0-35.0); MEAN CELL VOLUME 87.2 fl (80.0-105.0); MEAN CORPUSCULAR HEMOGLOBIN 30.5 pg (25.0-35.0); MEAN PLATELET VOLUME 11.2 fl (7.0-11.0); MONO # 0.7 (0.1-0.6); MONO % 12.2 % (1.0-6.0); RBC 2.82 10^6/uL (3.5-6.1); WHITE BLOOD COUNT 6.1 10^3/ul (4.5-11.0)
[2018-05-03 08:53] LABS: BASO # 0.07 K/mm3 (0.0-2.0)
[2018-05-03] MEDS: Sodium Chloride 0.9% 1,000 ML IV SCH ×4 (09:13→20:42)
--- NOTE | 2018-05-03 09:42 | CP.PCM.PN ---
Subjective - Date & Time of Evaluation Date of Evaluation: 05/03/18 Time of Evaluation: 09:38 - Subjective Subjective: General surgery progress note for Dr. Bateman Patient seen and examined at bedside. Patient had a bloody bowel movement last night while taking bowel prep. Patient received 2 units of PRBC transfusion. Hb today is 8.6 from 7.7. Objective - Vital Signs/Intake and Output Vital Signs (last 24 hours): Temp Pulse Resp BP Pulse Ox 98 F 84 19 156/77 H 100 05/03/18 08:44 05/03/18 08:44 05/03/18 08:44 05/03/18 08:44 05/03/18 08:44 Intake and Output: 05/03/18 05/03/18 06:59 18:59 Intake Total 552 Output Total 200 Balance 552 -200 - Medications Medications: Current Medications Sodium Chloride (Sodium Chloride 0.9%) 1,000 mls @ 100 mls/hr IV .Q10H [facility] Last Admin: 05/03/18 09:14 Dose: 100 mls/hr Insulin Human Regular (Humulin R Med) 0 units SC ACHS [facility]; Protocol Last Admin: 05/03/18 08:24 Dose: Not Given Morphine Sulfate (Morphine) 2 mg IVP Q4H PRN PRN Reason: Pain Last Admin: 05/02/18 05:43 Dose: 2 mg Pantoprazole Sodium (Protonix Inj) 40 mg IVP Q12 [facility] Last Admin: 05/03/18 09:12 Dose: 40 mg - Labs Labs: 05/03/18 07:00 05/02/18 06:40 PT 11.5 SECONDS (9.4-12.5) 04/30/18 16:46 INR 1.01 04/30/18 16:46 APTT 29.0 Seconds (25.1-36.5) 04/30/18 16:46 - Constitutional Appears: Well, Non-toxic, No Acute Distress - Head Exam Head Exam: ATRAUMATIC, NORMOCEPHALIC - Eye Exam Eye Exam: Normal appearance - GI/Abdominal Exam GI & Abdominal Exam: Soft. absent: Distended, Firm, Tenderness - Neurological Exam Neurological Exam: Alert, Awake, Oriented x3 - Psychiatric Exam Psychiatric exam: Normal Affect, Normal Mood - Skin Skin Exam: Dry, Intact, Warm Assessment and Plan - Assessment and Plan (Free Text) Assessment: Patient is a 68 year old male with lower GI bleed. Plan: - Follow up with colonoscopy results - Continue to monitor Hgb - Transfuse as needed - Management as per ICU team - Will continue to monitor Case discussed with Dr. Fransico Bender DO PGY-1
[2018-05-03] MEDS ORDERED: Propofol 10 mg/ml Inj (20 ML) ONE (12:18)
[2018-05-03] MEDS ORDERED: Etomidate 20 mg/10ml Inj IV ONE (12:18)
[2018-05-03] MEDS ORDERED: Phenylephrine 10 mg/ml Inj ONE (12:21)
--- NOTE | 2018-05-03 12:42 | CP.CCUPN ---
<Alexander Carlos - Last Filed: 05/03/18 12:53> CCU Subjective - Physician Review Subjective (Free Text): Alexander Carlos, PGY-1, CCU Progress Note for Dr. Bullard Patient seen and evaluated at bedside. Patient had cranberry bowel movement overnight and had drop in hemoglobin from 9.2 to 7.7. Patient was given 2 U of PRBCs. Patient denies headache, dizziness, fever, chest pain, heart palpitations, shortness of breath, nausea, vomiting, constipation, diarrhea, dysuria, hematuria, numbness/tingling. CCU Objective - Vital Signs / Intake & Output Vital Signs (Last 4 hours): Vital Signs Temp Pulse Resp BP Pulse Ox 05/03/18 11:56 100 05/03/18 10:20 72 13 97 05/03/18 10:10 71 14 98 05/03/18 10:00 73 13 145/68 96 05/03/18 09:53 72 14 98 05/03/18 08:50 82 05/03/18 08:48 80 05/03/18 08:44 98 F 84 19 156/77 H 100 Intake and Output (Last 8hrs): Intake & Output 05/02/18 05/03/18 05/03/18 22:59 06:59 14:59 Intake Total 740 552 Output Total 200 Balance 740 552 -200 Intake: IV 500 0.9 ns 500 Oral 240 Blood Product 552 Apheresis Rbc Cp2d As3 Lr 276 1st Unit [id number] Apheresis Rbc Cp2d As3 Lr 276 1st Unit [id number] Output: Stool 200 Other: # Voids Urine, Voided 1 # Bowel Movements 1 1 - Physical Exam Head: Positive for: Atraumatic, Normocephalic Pupils: Positive for: PERRL Extroacular Muscles: Positive for: EOMI Conjunctiva: Positive for: Normal Mouth: Positive for: Moist Mucous Membranes Neck: Positive for: Normal Range of Motion. Negative for: MIDLINE TENDERNESS, Paraspinal Tenderness Respiratory/Chest: Positive for: Clear to Auscultation, Good Air Exchange. Negative for: Respiratory Distress, Accessory Muscle Use Cardiovascular: Positive for: Regular Rate and Rhythm, Normal S1, S2. Negative for: Murmurs Abdomen: Negative for: Tenderness, Distention, Peritoneal Signs Back: Positive for: Normal Inspection. Negative for: CVA Tenderness, Midline Tenderness Upper Extremity: Positive for: Normal Inspection. Negative for: Cyanosis, Edema Lower Extremity: Negative for: Edema, CALF TENDERNESS, Tenderness Neurological: Positive for: GCS=15, CN II-XII Intact, Speech Normal Skin: Positive for: Warm, Dry, Normal Color. Negative for: Rashes Psychiatric: Positive for: Alert, Oriented x 3, Normal Insight, Normal Concentration - Medications Active Medications: Active Medications Generic Name Dose Route Start Last Admin Trade Name Freq PRN Reason Stop Dose Admin Sodium Chloride 1,000 mls @ 100 mls/hr 04/30/18 22:15 05/03/18 11:57 Sodium Chloride 0.9% IV 100 mls/hr .Q10H LOUIE Administration Insulin Human Regular 0 units 05/01/18 11:30 05/03/18 11:57 Humulin R Med SC Not Given ACHS LOUIE Protocol Morphine Sulfate 2 mg 05/01/18 02:10 05/02/18 05:43 Morphine IVP 2 mg Q4H PRN Administration Pain Pantoprazole Sodium 40 mg 05/02/18 22:00 05/03/18 09:12 Protonix Inj IVP 40 mg Q12 LOUIE Administration - Patient Studies Lab Studies: Microbiology Studies 05/01/18 00:55 MRSA Culture (Admit) - Final Nose MRSA NOT DETECTED Lab Studies 05/03/18 05/03/18 05/03/18 Range/Units 11:15 07:32 07:00 WBC 6.1 D (4.5-11.0) 10^3/ul RBC 2.82 L (3.5-6.1) 10^6/uL Hgb 8.6 L (14.0-18.0) g/dL Hct 24.6 L (42.0-52.0) % MCV 87.2 (80.0-105.0) fl MCH 30.5 (25.0-35.0) pg MCHC 35.0 (31.0-37.0) g/dl RDW 14.0 (11.5-14.5) % Plt Count 249 (120.0-450.0) 10^3/uL MPV 11.2 H (7.0-11.0) fl Gran % 64.8 (50.0-68.0) % Lymph % (Auto) 12.9 L (22.0-35.0) % Kleberg % (Auto) 12.2 H (1.0-6.0) % Eos % (Auto) 8.9 H (1.5-5.0) % Baso % (Auto) 1.2 (0.0-3.0) % Gran # 3.92 (1.4-6.5) Lymph # (Auto) 0.8 L (1.2-3.4) Kleberg # (Auto) 0.7 H (0.1-0.6) Eos # (Auto) 0.5 (0.0-0.7) Baso # (Auto) 0.07 (0.0-2.0) K/mm3 POC Glucose (mg/dL) 141 H 134 H (65-110) mg/dL Blood Type Antibody Screen Crossmatch BBK History Checked 05/02/18 05/02/18 05/02/18 Range/Units 23:28 23:28 21:10 WBC 8.6 D (4.5-11.0) 10^3/ul RBC 2.52 L (3.5-6.1) 10^6/uL Hgb 7.7 L (14.0-18.0) g/dL Hct 22.7 L (42.0-52.0) % MCV 90.1 (80.0-105.0) fl MCH 30.6 (25.0-35.0) pg MCHC 33.9 (31.0-37.0) g/dl RDW 13.4 (11.5-14.5) % Plt Count 354 (120.0-450.0) 10^3/uL MPV 11.3 H (7.0-11.0) fl Gran % 63.6 (50.0-68.0) % Lymph % (Auto) 16.7 L (22.0-35.0) % Kleberg % (Auto) 9.4 H (1.0-6.0) % Eos % (Auto) 9.1 H (1.5-5.0) % Baso % (Auto) 1.2 (0.0-3.0) % Gran # 5.50 (1.4-6.5) Lymph # (Auto) 1.4 (1.2-3.4) Kleberg # (Auto) 0.8 H (0.1-0.6) Eos # (Auto) 0.8 H (0.0-0.7) Baso # (Auto) 0.10 (0.0-2.0) K/mm3 POC Glucose (mg/dL) 118 H (65-110) mg/dL Blood Type O POSITIVE Antibody Screen Negative Crossmatch See Detail BBK History Checked Patient has bt 05/02/18 04/30/18 Range/Units 16:02 19:57 WBC (4.5-11.0) 10^3/ul RBC (3.5-6.1) 10^6/uL Hgb (14.0-18.0) g/dL Hct (42.0-52.0) % MCV (80.0-105.0) fl MCH (25.0-35.0) pg MCHC (31.0-37.0) g/dl RDW (11.5-14.5) % Plt Count (120.0-450.0) 10^3/uL MPV (7.0-11.0) fl Gran % (50.0-68.0) % Lymph % (Auto) (22.0-35.0) % Kleberg % (Auto) (1.0-6.0) % Eos % (Auto) (1.5-5.0) % Baso % (Auto) (0.0-3.0) % Gran # (1.4-6.5) Lymph # (Auto) (1.2-3.4) Kleberg # (Auto) (0.1-0.6) Eos # (Auto) (0.0-0.7) Baso # (Auto) (0.0-2.0) K/mm3 POC Glucose (mg/dL) 224 H (65-110) mg/dL Blood Type O POSITIVE Antibody Screen Negative Crossmatch See Detail BBK History Checked No verified bt Laboratory Results - last 24 hr 04/30/18 05/02/18 05/02/18 19:57 16:02 21:10 WBC RBC Hgb Hct MCV MCH MCHC RDW Plt Count MPV Gran % Lymph % (Auto) Kleberg % (Auto) Eos % (Auto) Baso % (Auto) Gran # Lymph # (Auto) Kleberg # (Auto) Eos # (Auto) Baso # (Auto) POC Glucose (mg/dL) 224 H 118 H Blood Type O POSITIVE Antibody Screen Negative Crossmatch See Detail BBK History Checked No verified bt 05/02/18 05/02/18 05/03/18 23:28 23:28 07:00 WBC 8.6 D 6.1 D RBC 2.52 L 2.82 L Hgb 7.7 L 8.6 L Hct 22.7 L 24.6 L MCV 90.1 87.2 MCH 30.6 30.5 MCHC 33.9 35.0 RDW 13.4 14.0 Plt Count 354 249 MPV 11.3 H 11.2 H Gran % 63.6 64.8 Lymph % (Auto) 16.7 L 12.9 L Kleberg % (Auto) 9.4 H 12.2 H Eos % (Auto) 9.1 H 8.9 H Baso % (Auto) 1.2 1.2 Gran # 5.50 3.92 Lymph # (Auto) 1.4 0.8 L Kleberg # (Auto) 0.8 H 0.7 H Eos # (Auto) 0.8 H 0.5 Baso # (Auto) 0.10 0.07 POC Glucose (mg/dL) Blood Type O POSITIVE Antibody Screen Negative Crossmatch See Detail BBK History Checked Patient has bt 05/03/18 05/03/18 07:32 11:15 WBC RBC Hgb Hct MCV MCH MCHC RDW Plt Count MPV Gran % Lymph % (Auto) Kleberg % (Auto) Eos % (Auto) Baso % (Auto) Gran # Lymph # (Auto) Kleberg # (Auto) Eos # (Auto) Baso # (Auto) POC Glucose (mg/dL) 134 H 141 H Blood Type Antibody Screen Crossmatch BBK History Checked Fingerstick Blood Sugar Results: 134 Review of Systems - Constitutional Constitutional: absent: Fever, Chills, Sweats - EENT Eyes: absent: Blurred Vision Ears: absent: Decreased Hearing Nose/Mouth/Throat: absent: Dysphagia - Cardiovascular Cardiovascular: absent: Chest Pain, Chest Pain at Rest, Chest Pain with Activity, Dyspnea, Pain Radiating to Arm/Neck/Jaw, Palpitations - Respiratory Respiratory: absent: Cough, Dyspnea, Wheezing - Gastrointestinal Gastrointestinal: Hematochezia. absent: Abdominal Pain, Constipation, Diarrhea, Nausea, Vomiting - Genitourinary Genitourinary: absent: Dysuria, Hematuria - Musculoskeletal Musculoskeletal: absent: Arthralgias, Back Pain - Neurological Neurological: absent: Confusion, Numbness, Tingling Critical Care Progress Note - Ventilator Checklist Head of Bed 30 Degrees: Yes Daily Sedation Vacation: Yes PUD Prophalyxis: Yes DVT Prophylaxis: Yes - Nutrition Nutrition: Nutrition Category Date Time Status NPO Diet [DIET] Diets 05/03/18 Breakfast Ordered Assessment/Plan - Assessment and Plan (Free Text) Assessment: 68 year old male with past medical history of diabetes, coronary artery disease, caludifcation presents with right lower extremity pain and lighthededness while shopping on 04.30. Patient felt pain in leg that shot up pin leading to lightheadedness, dizziness, and he hit the ground. Patient reports first hitting his gluteal muscle and subsequently the back of his head. Patient had a bloody bowel movement in the ER. Patient was later found to have a hemoglobin of 6.5 and was transfused 3 U of PRBCs. Plan: Neuro: -AAOx3, no FND, moving extremities past midline. -Head CT: chronic encephalomalacia. This was confirmed by neurology, Dr. Quinn, who says no intervention needed at this time. -Monitor neuro status. -Reorient patient as necessary. Cardio: -RRR, normotensive, no signs of HD compromise -EKG: normal sinus rhythm with HR: 84 -Maintain MAP>65. -Monitor for S/S, HD compromise. Pulm: -No signs of respiratory distress. CTA B/L -Patient is stating well on room air. -VBG 04/30: pH: 7.35, Lactate: 0.9 from 2.2 -CXR: no acute disease -Maintain O2 saturation>95%. GI: -Patient to be NPO from liquid diet. -GI bleeding scan: source of bleeding is from the rectum. -Plan for endoscopy and colonoscopy tomorrow as per GI. -Golytely prep last night -Patient had two more episodes of GI bleed last night after Golytely prep. -Patient to have colonoscopy today for further evaluation of GI bleed. -No plans for GI bleed from surgical standpoint as per surgery. -Protonix 40 mg daily /Nephro: -BUN/Cr stable at 19/1 on 05/02. -UA ordered. -Good urine output -Continue monitoring. -Patient's bicarbonate level mildly decreased at 17 on 05/02. Continue to monitor. -Replete electrolytes as needed. -Maintain euvolemia. Endocrinology: -POC glucose: 141 -Maintain euglycemia. Heme/Onc: -H/H stable at 8.6/24.6. Patient has received 5 U of PRBCs total for decreased hemoglobin on presentation at 6.5. -No signs of HD compromise. -Continue monitoring H/H ID: -Afebrile, no leukocytosis -Lactate: 0.9 from 2.2. -Monitor for signs and symptoms of infection. DVT prophylaxis: SCD GI prophylaxis: protonix 40 mg daily Patient case discussed with Dr. Bullard. - Date & Time Date: 05/03/18 Time: 12:53 <Edward Bullard - Last Filed: 05/03/18 15:02> CCU Objective - Vital Signs / Intake & Output Vital Signs (Last 4 hours): Vital Signs Pulse Resp BP Pulse Ox 05/03/18 13:57 95 05/03/18 13:50 64 13 100 05/03/18 13:40 64 15 100 05/03/18 13:30 68 18 100 05/03/18 13:22 63 146/71 05/03/18 11:56 100 05/03/18 11:50 74 18 05/03/18 11:40 68 16 05/03/18 11:30 70 16 05/03/18 11:23 75 18 137/86 05/03/18 11:20 84 19 100 05/03/18 11:10 72 12 100 Intake and Output (Last 8hrs): Intake & Output 05/03/18 05/03/18 05/03/18 06:59 14:59 22:59 Intake Total 552 Output Total 200 Balance 552 -200 Intake: Blood Product 552 Apheresis Rbc Cp2d As3 Lr 276 1st Unit [id number] Apheresis Rbc Cp2d As3 Lr 276 1st Unit [id number] Output: Stool 200 Other: # Bowel Movements 1 - Medications Active Medications: Active Medications Generic Name Dose Route Start Last Admin Trade Name Freq PRN Reason Stop Dose Admin Sodium Chloride 1,000 mls @ 100 mls/hr 04/30/18 22:15 05/03/18 11:57 Sodium Chloride 0.9% IV 100 mls/hr .Q10H LOUIE Administration Insulin Human Regular 0 units 05/01/18 11:30 05/03/18 11:57 Humulin R Med SC Not Given ACHS [facility] Protocol Morphine Sulfate 2 mg 05/01/18 02:10 05/02/18 05:43 Morphine IVP 2 mg Q4H PRN Administration Pain Pantoprazole Sodium 40 mg 05/02/18 22:00 05/03/18 09:12 Protonix Inj IVP 40 mg Q12 LOUIE Administration - Patient Studies Lab Studies: Lab Studies 05/03/18 05/03/18 05/03/18 Range/Units 11:15 07:32 07:00 WBC 6.1 D (4.5-11.0) 10^3/ul RBC 2.82 L (3.5-6.1) 10^6/uL Hgb 8.6 L (14.0-18.0) g/dL Hct 24.6 L (42.0-52.0) % MCV 87.2 (80.0-105.0) fl MCH 30.5 (25.0-35.0) pg MCHC 35.0 (31.0-37.0) g/dl RDW 14.0 (11.5-14.5) % Plt Count 249 (120.0-450.0) 10^3/uL MPV 11.2 H (7.0-11.0) fl Gran % 64.8 (50.0-68.0) % Lymph % (Auto) 12.9 L (22.0-35.0) % Kleberg % (Auto) 12.2 H (1.0-6.0) % Eos % (Auto) 8.9 H (1.5-5.0) % Baso % (Auto) 1.2 (0.0-3.0) % Gran # 3.92 (1.4-6.5) Lymph # (Auto) 0.8 L (1.2-3.4) Kleberg # (Auto) 0.7 H (0.1-0.6) Eos # (Auto) 0.5 (0.0-0.7) Baso # (Auto) 0.07 (0.0-2.0) K/mm3 POC Glucose (mg/dL) 141 H 134 H (65-110) mg/dL Blood Type Antibody Screen Crossmatch BBK History Checked 05/02/18 05/02/18 05/02/18 Range/Units 23:28 23:28 21:10 WBC 8.6 D (4.5-11.0) 10^3/ul RBC 2.52 L (3.5-6.1) 10^6/uL Hgb 7.7 L (14.0-18.0) g/dL Hct 22.7 L (42.0-52.0) % MCV 90.1 (80.0-105.0) fl MCH 30.6 (25.0-35.0) pg MCHC 33.9 (31.0-37.0) g/dl RDW 13.4 (11.5-14.5) % Plt Count 354 (120.0-450.0) 10^3/uL MPV 11.3 H (7.0-11.0) fl Gran % 63.6 (50.0-68.0) % Lymph % (Auto) 16.7 L (22.0-35.0) % Kleberg % (Auto) 9.4 H (1.0-6.0) % Eos % (Auto) 9.1 H (1.5-5.0) % Baso % (Auto) 1.2 (0.0-3.0) % Gran # 5.50 (1.4-6.5) Lymph # (Auto) 1.4 (1.2-3.4) Kleberg # (Auto) 0.8 H (0.1-0.6) Eos # (Auto) 0.8 H (0.0-0.7) Baso # (Auto) 0.10 (0.0-2.0) K/mm3 POC Glucose (mg/dL) 118 H (65-110) mg/dL Blood Type O POSITIVE Antibody Screen Negative Crossmatch See Detail BBK History Checked Patient has bt 05/02/18 04/30/18 Range/Units 16:02 19:57 WBC (4.5-11.0) 10^3/ul RBC (3.5-6.1) 10^6/uL Hgb (14.0-18.0) g/dL Hct (42.0-52.0) % MCV (80.0-105.0) fl MCH (25.0-35.0) pg MCHC (31.0-37.0) g/dl RDW (11.5-14.5) % Plt Count (120.0-450.0) 10^3/uL MPV (7.0-11.0) fl Gran % (50.0-68.0) % Lymph % (Auto) (22.0-35.0) % Kleberg % (Auto) (1.0-6.0) % Eos % (Auto) (1.5-5.0) % Baso % (Auto) (0.0-3.0) % Gran # (1.4-6.5) Lymph # (Auto) (1.2-3.4) Kleberg # (Auto) (0.1-0.6) Eos # (Auto) (0.0-0.7) Baso # (Auto) (0.0-2.0) K/mm3 POC Glucose (mg/dL) 224 H (65-110) mg/dL Blood Type O POSITIVE Antibody Screen Negative Crossmatch See Detail BBK History Checked No verified bt Laboratory Results - last 24 hr 04/30/18 05/02/18 05/02/18 19:57 16:02 21:10 WBC RBC Hgb Hct MCV MCH MCHC RDW Plt Count MPV Gran % Lymph % (Auto) Kleberg % (Auto) Eos % (Auto) Baso % (Auto) Gran # Lymph # (Auto) Kleberg # (Auto) Eos # (Auto) Baso # (Auto) POC Glucose (mg/dL) 224 H 118 H Blood Type O POSITIVE Antibody Screen Negative Crossmatch See Detail BBK History Checked No verified bt 05/02/18 05/02/18 05/03/18 23:28 23:28 07:00 WBC 8.6 D 6.1 D RBC 2.52 L 2.82 L Hgb 7.7 L 8.6 L Hct 22.7 L 24.6 L MCV 90.1 87.2 MCH 30.6 30.5 MCHC 33.9 35.0 RDW 13.4 14.0 Plt Count 354 249 MPV 11.3 H 11.2 H Gran % 63.6 64.8 Lymph % (Auto) 16.7 L 12.9 L Kleberg % (Auto) 9.4 H 12.2 H Eos % (Auto) 9.1 H 8.9 H Baso % (Auto) 1.2 1.2 Gran # 5.50 3.92 Lymph # (Auto) 1.4 0.8 L Kleberg # (Auto) 0.8 H 0.7 H Eos # (Auto) 0.8 H 0.5 Baso # (Auto) 0.10 0.07 POC Glucose (mg/dL) Blood Type O POSITIVE Antibody Screen Negative Crossmatch See Detail BBK History Checked Patient has bt 05/03/18 05/03/18 07:32 11:15 WBC RBC Hgb Hct MCV MCH MCHC RDW Plt Count MPV Gran % Lymph % (Auto) Kleberg % (Auto) Eos % (Auto) Baso % (Auto) Gran # Lymph # (Auto) Kleberg # (Auto) Eos # (Auto) Baso # (Auto) POC Glucose (mg/dL) 134 H 141 H Blood Type Antibody Screen Crossmatch BBK History Checked Critical Care Progress Note - Nutrition Nutrition: Nutrition Category Date Time Status NPO Diet [DIET] Diets 05/03/18 Breakfast Ordered Attending/Attestation - Attestation I have personally seen and examined this patient.: Yes I have fully participated in the care of the patient.: Yes I have reviewed all pertinent clinical information: Yes Notes (Text): 05/03/18 15:[address] bullard note
--- NOTE | 2018-05-03 13:53 | PN ---
DATE: 05/03/2018 CRITICAL CARE PROGRESS NOTE SUBJECTIVE: This 68-year-old male remains hospitalized in CCU bed 3, awaiting diagnostic sigmoidostomy and colonoscopy for recent rectal bleeding. It should be noted that the patient last evening had a drop in his hemoglobin to 7.7 with hematocrit of 22.7. This prompted repeat transfusion for this patient and at present, today's hemoglobin is 8.6 with hematocrit of 24.6. The patient is on schedule for sigmoidoscopy, colonoscopy and denies any fever, chills, chest pain or shortness of breath. There have been no reports of bright red blood per rectum or hematemesis in the past 24 hours. MRSA screen shows none detected. PHYSICAL EXAMINATION: VITAL SIGNS: Physical exam shows temperature 98.1, respirations 20, pulse 72 and blood pressure 145/68 with a pulse ox of 98% on room air. HEENT: Head normocephalic, atraumatic. Eyes: No icterus. Ears: Clear. Throat: Noninjected. NECK: Supple. HEART: Regular S1, S2. LUNGS: Clear. ABDOMEN: Soft. EXTREMITIES: No edema. SKIN: Without rash. NEUROLOGICAL: Deconditioned. VASCULAR: Legs warm to touch. LABORATORY DATA: White count 6100, hemoglobin 8.6, hematocrit 24.6, platelets 249,000. Sodium 143, K 4, chloride 118, bicarb 17, BUN 19, creatinine 1, random blood sugar 141. IMPRESSION: A 68-year-old male with rectal bleeding, bright red blood per rectum and bleeding scan positive for bleeding from the rectum with insulin-dependent diabetes mellitus and history of deconditioning, degenerative arthritis, recent fall and frontal brain encephalomalacia, chronic. He will continue at present on regular Humulin R medium insulin coverage before meals and at bedtime, morphine 2 mg IV every 4 hours p.r.n. severe pain, Protonix 40 mg IV every 12 and 0.9 saline at 100 mL/hour. He is ordered to receive iron 200 mg IV x1 dose. His echocardiography remains ordered and pending. He is n.p.o. on schedule for endoscopy today and is continuing to wear sequential compression device, antiembolism stockings while being monitored for neurologic checks, inputs and outputs and physical therapy as tolerated. Based on his diagnostic workup, additional diagnostic testing will be entertained. He is cleared for transfer to cardiac step-down and greater than 35 minutes was spent in the care and management, review of labs, orders and x-rays and discussion of this patient with his nurse, Maida Woods, registered nurse. All questions were answered. Amber Elizabeth MD MTDMicah
--- NOTE | 2018-05-03 14:08 | PN ---
DATE: 05/02/2018 CRITICAL CARE PROGRESS NOTE SUBJECTIVE: This 68-year-old male was examined in the Critical Care Unit, bed #6, on 05/02/2018. This case was reviewed with his nurse, Alvina Salgado, registered nurse. The patient is status post active rectal bleeding. He required 3 units of packed red blood cells today. A bleeding scan was reviewed and revealed bleeding coming from his rectum and the patient is going to start a clear liquid diet and bowel prep for sigmoidoscopy and colonoscopy to hopefully be completed in the a.m. At the time of my evaluation, the patient was lying in his bed. There was no active GI bleeding at present and he was denying any fever, chills, or chest pain, no shortness of breath. PHYSICAL EXAMINATION: VITAL SIGNS: He is in a normal sinus rhythm on the cardiac cath technician. Temperature was 98.2, respirations 14, pulse 79, and blood pressure 133/67 with a pulse ox of 100% on room air. HEENT: Head: Normocephalic, atraumatic. Eyes: No icterus. Ears: Clear. Throat: Noninjected. NECK: Supple. HEART: Regular S1, S2. LUNGS: Clear. ABDOMEN: Soft. EXTREMITIES: No edema. SKIN: Without rash. NEUROLOGICAL: Deconditioned. VASCULAR: Legs warm to touch. PSYCHOLOGICAL: Alert and cooperative. LABORATORY DATA: White count 7100, hemoglobin 9.2, hematocrit 27.3, platelets 289,000. Sodium 143, K 4,chloride 118, bicarb 17, BUN 19, creatinine 1, random blood sugar 92. Calcium 8.6, phosphorous 2.9, magnesium 2. Bilirubin 0.6, AST 26, ALT 25, alk phos 42. Hemoglobin A1c elevated at 9.7. IMPRESSION: A 68-year-old male with rectal bleeding; comorbidities of deconditioning; type 2 diabetes mellitus, insulin-dependent; history of degenerative arthritis with recent head CT showing no intracranial hemorrhage, but chronic encephalomalacia involving his right frontal white matter, unchanged. PLAN: To maintain this patient on the cardiac step-down unit where he will continue regular medium insulin coverage before meals and at bedtime, morphine 2 mg IV every 4 hours p.r.n. severe pain, Protonix 40 mg IV every 12 hours, and gentle IV fluids. He will have serial labs, CBC, and basic metabolic panels. He is ordered to have an echocardiogram for completeness sake. He is on a clear liquid diet with bowel prep and is wearing sequential compression device, antiembolism stockings while having his I's and O's monitored and neuro checks every shift. Based on his clinical progress and diagnostic workup, additional testing and intervention will be entertained. Should he require blood cell transfusion, this will be ordered as well and all of the above was discussed in detail with the patient, nursing, and co-consultants. Greater than 35 minutes was spent in the critical care management of this patient today. All questions were answered. Amber Elizabeth MD MTDD
--- NOTE | 2018-05-03 14:30 | PN ---
DATE: 05/03/2018 SUBJECTIVE: The patient was seen and examined at bedside. He is comfortable. He talks full sentences. He is not in respiratory or otherwise distress. PHYSICAL EXAMINATION: VITAL SIGNS: Heart rate 72, blood pressure 145/68, respiratory rate 13, oxygen saturation 97% on room air. HEENT: Head and neck atraumatic. LUNGS: Clear to auscultation bilaterally. HEART: Regular rate and rhythm. S1 and S2 normal. ABDOMEN: Soft, nontender, and nondistended. MUSCULOSKELETAL: No C/C/E. NEURO: The patient moves all extremities spontaneously. SKIN: Moist. PSYCH: The patient is alert, awake, and oriented x3. LABORATORY DATA: WBC 6.1, hemoglobin 8.6 up from 7.7 after 2 units of blood, and platelet count 249. MEDICATIONS: Morphine p.r.n., Protonix 40 mg IV every 12 hours , normal saline 100 mL/hour. ASSESSMENT AND PLAN: This 68 old gentleman who presented with lower gastrointestinal bleed with maintaining hemodynamic stability. The patient did have some bloody bowel movement last night; however, going for colonoscopy today. We will continue n.p.o., IV fluids, serial CBC, maintain hemoglobin above 7. Mechanical DVT prophylaxis, GI prophylaxis. ccm time 40 min Edward Bowers MD MTDD
[2018-05-03 15:44] LABS: BASO # 0.08 K/mm3 (0.0-2.0); BASO % 1.4 % (0.0-3.0); EOS # 0.9 (0.0-0.7); EOS % 15.3 % (1.5-5.0); GRAN # 3.04 (1.4-6.5); GRAN % 52.2 % (50.0-68.0); HEMOGLOBIN 8.5 g/dL (14.0-18.0); LYMPH % 17.9 % (22.0-35.0); MEAN CELL VOLUME 87.3 fl (80.0-105.0); MEAN CORPUSCULAR HGB CONC 34.4 g/dl (31.0-37.0); MEAN PLATELET VOLUME 10.5 fl (7.0-11.0); MONO # 0.8 (0.1-0.6); MONO % 13.2 % (1.0-6.0); RBC 2.83 10^6/uL (3.5-6.1); WHITE BLOOD COUNT 5.8 10^3/ul (4.5-11.0)
[2018-05-03 16:01] LABS: ALB/GLOB RATIO 1.3 (1.1-1.8); ALT/SGPT 29 U/L (7-56); AST/SGOT 27 U/L (17-59); BLOOD UREA NITROGEN 11 mg/dL (7-21); CALCIUM 8.2 mg/dL (8.4-10.5); GFR NON-AFRICAN AMERICAN > 60
--- NOTE | 2018-05-03 18:45 | CON ---
DATE: 05/03/2018 HEMATOLOGY CONSULTATION HISTORY OF PRESENT ILLNESS: This is a 68-year-old man with anemia. The patient is not a good historian, but the patient comes in complaining of severe weakness and diarrhea, which showed bloody stools. PHYSICAL EXAMINATION: SKIN: No petechiae. No bruises. No telangiectasia. HEENT: Anicteric. No mucosal lesions noted. NODES: None palpable in the axillary, cervical, supraclavicular, or inguinal regions. LUNGS: Clear at present. No vertebral tenderness. The patient is able to lie flat in bed. HEART: S1 and S2. ABDOMEN: Shows no liver, no spleen, no tenderness, no rebound, no ascites. EXTREMITIES: No edema. DIRECTORY CLERK: Plantars are downgoing bilaterally. LABORATORY DATA: Hemoglobin which was 8.3 initially after transfusion went up to 9.2, went back down to 7.7. He still has bloody stools. At this point, we will have to just keep up with the transfusions until they can ascertain where the bleeding is coming from. There was a bleeding scan, which was negative. CAT scan does not show anything to the liver, spleen, etc. and does not show portal vein hypertension. So, at this point, I also gave an intravenous IV iron because eventually become iron deficient with this kind of bleeding. So, at this point, his coagulation tests are basically okay, PT, PTT, etc. So, at this point, we just have to keep up with the blood transfusions until we have to figure out where his bleeding is coming from. Isidoro Shankar MD
[2018-05-04 00:08] LABS: HEMOGLOBIN 7.3 g/dL (14.0-18.0)
[2018-05-04] MEDS: Sodium Chloride 0.9% 1,000 ML IV SCH (06:14)
[2018-05-04] MEDS: Insulin Reg-MEDIUM-Coverage SC SCH ×4 (08:28→22:11)
[2018-05-04 08:38] LABS: BASO # 0.07 K/mm3 (0.0-2.0); BASO % 1.3 % (0.0-3.0); EOS # 1.3 (0.0-0.7); EOS % 23.4 % (1.5-5.0); GRAN # 2.86 (1.4-6.5); GRAN % 51.8 % (50.0-68.0); HEMOGLOBIN 7.8 g/dL (14.0-18.0); LYMPH # 0.8 (1.2-3.4); LYMPH % 14.1 % (22.0-35.0); MEAN CELL VOLUME 87.2 fl (80.0-105.0); MEAN CORPUSCULAR HEMOGLOBIN 30.4 pg (25.0-35.0); MEAN CORPUSCULAR HGB CONC 34.8 g/dl (31.0-37.0); MEAN PLATELET VOLUME 10.4 fl (7.0-11.0); MONO # 0.5 (0.1-0.6); MONO % 9.4 % (1.0-6.0); PLATELET COUNT 257 10^3/uL (120.0-450.0); RBC 2.57 10^6/uL (3.5-6.1); RED CELL DISTRIBUTION WIDTH 13.9 % (11.5-14.5); WHITE BLOOD COUNT 5.5 10^3/ul (4.5-11.0)
[2018-05-04 08:49] LABS: BLOOD UREA NITROGEN 8 mg/dL (7-21); CALCIUM 8.3 mg/dL (8.4-10.5); GFR NON-AFRICAN AMERICAN > 60
[2018-05-04 09:31] LABS: ATYPICAL LYMPHOCYTE 2 % (0.0-0.0); BASOPHIL 1 % (0.0-1.0); EOSINOPHIL 23 % (0.0-3.0); LYMPHOCYTE 19 % (22.0-35.0); MONOCYTE 6 % (1.0-6.0); NEUTROPHIL 49 % (50.0-70.0); PLATELET ESTIMATE NORMAL (NORMAL)
[2018-05-04] MEDS ORDERED: Sodium Chloride 0.9% 1,000 ML IV SCH (10:29)
--- NOTE | 2018-05-04 11:07 | CARD ---
APPROVED REPORT Date of service: 05/03/2018 EXAM: Two-dimensional and M-mode echocardiogram with Doppler and color Doppler. INDICATION NEAR SYNCOPE 2D DIMENSIONS Left Atrium (2D)3.6 (1.6-4.0cm)IVSd1.1 (0.7-1.1cm) LVDd5.4 (3.9-5.9cm)PWd1.2 (0.7-1.1cm) LVDs4.2 (2.5-4.0cm)FS (%) 22.1 % LVEF (%)44.2 (>50%) M-Mode DIMENSIONS Aortic Root3.60 (2.2-3.7cm)Aortic Cusp Exc.1.60 (1.5-2.0cm) Aortic Valve AoV Peak Nwskomdb445.0cm/Sabrina Peak GR.9mmHg Mitral Valve MV E Tbjlobgm40.1cm/sMV A Mqmagrjj975.0cm/sE/A ratio0.8 TDI E/Lateral E'0.0E/Medial E'0.0 Tricuspid Valve TR Peak Riehrijs316ss/sRAP [id number] Peak Gr.38mmHg [id number] LEFT VENTRICLE The left ventricle is normal size. LV Posterior Wall Shows Mild Hypertrophy. LV Systolic Function Shows Mild Decrease with LV Ej.Fr: 45%. RIGHT VENTRICLE The right ventricle is normal size. The right ventricular systolic function is normal. ATRIA The left atrium size is normal. The right atrium size is normal. AORTIC VALVE Aortic Valve thickened due to Calcification and Opening is Normal. Mild to Moderate Aortic Regurge. MITRAL VALVE The mitral valve is normal in structure. Mitral regurgitation is mild. TRICUSPID VALVE The tricuspid valve is normal in structure. There is mild tricuspid regurgitation. PERICARDIAL EFFUSION There is no pericardial effusion. <Conclusion> The left ventricle is normal size. LV Posterior Wall Shows Mild Hypertrophy. LV Systolic Function Shows Mild Decrease with LV Ej.Fr: 45%. Mild LV Diastolic Dysfunction. The right ventricle is normal size. The right ventricular systolic function is normal. The left atrium size is normal. The right atrium size is normal. Aortic Valve thickened due to Calcification and Opening is Normal. Mild to Moderate Aortic Regurge. The mitral valve is normal in structure. Mitral regurgitation is mild. The tricuspid valve is normal in structure. There is mild tricuspid regurgitation. There is no pericardial effusion.
--- NOTE | 2018-05-04 12:01 | CP.PCM.PN ---
Subjective - Date & Time of Evaluation Date of Evaluation: 05/04/18 Time of Evaluation: 11:58 - Subjective Subjective: General surgery progress note for Dr. Bateman Patient seen and examined at bedside. Patient had one episode of bloody bowel movement last night. Patient is feeling better and tolerating his diet. Denies fevers, chills, SOB, chest pain, or abdominal pain. Objective - Vital Signs/Intake and Output Vital Signs (last 24 hours): Temp Pulse Resp BP Pulse Ox 98.3 F 64 19 136/67 97 05/04/18 06:00 05/04/18 10:00 05/04/18 06:00 05/04/18 06:00 05/04/18 06:00 - Medications Medications: Current Medications Sodium Chloride (Sodium Chloride 0.9%) 1,000 mls @ 30 mls/hr IV .Q24H LOUIE Insulin Human Regular (Humulin R Med) 0 units SC ACHS LOUIE; Protocol Last Admin: 05/04/18 11:41 Dose: 5 units Morphine Sulfate (Morphine) 2 mg IVP Q4H PRN PRN Reason: Pain Last Admin: 05/02/18 05:43 Dose: 2 mg Pantoprazole Sodium (Protonix Inj) 40 mg IVP Q12 LOUIE Last Admin: 05/04/18 09:25 Dose: 40 mg - Labs Labs: 05/04/18 07:27 05/04/18 07:27 PT 11.5 SECONDS (9.4-12.5) 04/30/18 16:46 INR 1.01 04/30/18 16:46 APTT 29.0 Seconds (25.1-36.5) 04/30/18 16:46 - Constitutional Appears: Well, Non-toxic - Head Exam Head Exam: ATRAUMATIC, NORMOCEPHALIC - Eye Exam Eye Exam: Normal appearance - ENT Exam ENT Exam: Mucous Membranes Moist - Respiratory Exam Respiratory Exam: NORMAL BREATHING PATTERN. absent: Respiratory Distress - Cardiovascular Exam Cardiovascular Exam: RRR. absent: Bradycardia, Tachycardia - GI/Abdominal Exam GI & Abdominal Exam: Soft. absent: Distended, Guarding, Tenderness - Extremities Exam Extremities Exam: Normal Inspection - Neurological Exam Neurological Exam: Alert, Awake, Oriented x3 - Psychiatric Exam Psychiatric exam: Normal Affect, Normal Mood - Skin Skin Exam: Dry, Intact, Warm Assessment and Plan - Assessment and Plan (Free Text) Assessment: Patient is a 68 year old male with lower GI bleed. Plan: - Continue to monitor Hgb - Transfuse as needed - Management as per medical team - Will continue to monitor Case discussed with Dr. Fransico Bender DO PGY-1
--- NOTE | 2018-05-04 13:49 | CP.PCM.PN ---
<Finesse Henry - Last Filed: 05/04/18 18:05> Subjective - Date & Time of Evaluation Date of Evaluation: 05/04/18 Time of Evaluation: 11:15 - Subjective Subjective: PGY-4 GI Fellow Consult Note Pt sitting on bedside when seen this AM. Reports one maroon BM this AM, no further BMs. No abd pain, N/V. 5 point ROS negative other than stated above Objective - Vital Signs/Intake and Output Vital Signs (last 24 hours): Temp Pulse Resp BP Pulse Ox 98.2 F 70 18 149/61 97 05/04/18 13:38 05/04/18 13:38 05/04/18 13:38 05/04/18 13:38 05/04/18 06:00 Intake and Output: 05/04/18 05/04/18 06:59 18:59 Intake Total 0 Balance 0 - Medications Medications: Current Medications Sodium Chloride (Sodium Chloride 0.9%) 1,000 mls @ 30 mls/hr IV .Q24H LOUIE Insulin Human Regular (Humulin R Med) 0 units SC ACHS LOUIE; Protocol Last Admin: 05/04/18 11:41 Dose: 5 units Morphine Sulfate (Morphine) 2 mg IVP Q4H PRN PRN Reason: Pain Last Admin: 05/02/18 05:43 Dose: 2 mg Pantoprazole Sodium (Protonix Inj) 40 mg IVP Q12 LOUIE Last Admin: 05/04/18 09:25 Dose: 40 mg - Labs Labs: 05/04/18 07:27 05/04/18 07:27 PT 11.5 SECONDS (9.4-12.5) 04/30/18 16:46 INR 1.01 04/30/18 16:46 APTT 29.0 Seconds (25.1-36.5) 04/30/18 16:46 - Constitutional Appears: No Acute Distress, Chronically Ill - Head Exam Head Exam: ATRAUMATIC, NORMAL INSPECTION - Eye Exam Eye Exam: EOMI. absent: Conjunctival injection, Scleral icterus - Respiratory Exam Respiratory Exam: NORMAL BREATHING PATTERN. absent: Accessory Muscle Use, Respiratory Distress - GI/Abdominal Exam GI & Abdominal Exam: Distended (mildly), Soft, Normal Bowel Sounds. absent: Br uit, Firm, Guarding, Rigid, Tenderness, Mass, Organomegaly, Pulsatile Mass, Rebound Assessment and Plan - Assessment and Plan (Free Text) Assessment: 68M with significant vascular disease presenting with presyncope and painless hematochezia. #Acute blood loss anemia due to GI bleed: Suspect lower given painless hematochezia and no hematemesis. No previous Endos on file. Hgb stable after 3 pRBC transfusion. On PPI gtt. Hemodynamically stable #PVD #T2DM #Malnourished #SABRA #Chronic eosinophilia #Hx of CBD stent Plan: -s/p 3 units pRBCs 04/30/18 with appropriate response -DC PPI -Monitor Hgb and transfuse for symptomatic bleeding or Hb<7. -Obtain endoscopic records from [facility] -Might need biliary stent removal prior to DC, tentatively planning on Wednesday Pt seen and examined with Dr. Gupta; please see attestation for further recs/changes. <Karen Gupta V - Last Filed: 05/04/18 23:33> Objective - Vital Signs/Intake and Output Vital Signs (last 24 hours): Temp Pulse Resp BP Pulse Ox 98.3 F 72 20 145/69 99 05/04/18 19:46 05/04/18 19:46 05/04/18 19:46 05/04/18 19:46 05/04/18 16:42 Intake and Output: 05/04/18 05/05/18 18:59 06:59 Intake Total 350 2215 Output Total 601 Balance 350 1614 - Medications Medications: Current Medications Sodium Chloride (Sodium Chloride 0.9%) 1,000 mls @ 30 mls/hr IV .Q24H LOUIE Insulin Human Regular (Humulin R Med) 0 units SC ACHS LOUIE; Protocol Last Admin: 05/04/18 22:11 Dose: 3 units Morphine Sulfate (Morphine) 2 mg IVP Q4H PRN PRN Reason: Pain Last Admin: 05/02/18 05:43 Dose: 2 mg - Labs Labs: 05/04/18 07:27 05/04/18 07:27 PT 11.5 SECONDS (9.4-12.5) 04/30/18 16:46 INR 1.01 04/30/18 16:46 APTT 29.0 Seconds (25.1-36.5) 04/30/18 16:46 Attending/Attestation - Attestation I have personally seen and examined this patient.: Yes I have fully participated in the care of the patient.: Yes I have reviewed all pertinent clinical information, including history, physical exam and plan: Yes Notes (Text): This is an addendum to GI progress report dictated by the GI Fellow.The patient was seen and examined earlier. Medical records, lab studies, imagings were reviewed. Last 24 hours events reviewed. Agreed with the above treatment plan as outlined in GI Fellow 's notes with the addition of the following Status post EGD colonoscopy Bleeding appears to be from distal sigmoidal diverticulum appeared to have clotted blood Vigorous lavage did not reveal any active bleeding Patient does have biliary stent in place Awaiting for endo report from [facility] Schedule for ERCP and removal of the stent on Wed05/04/18 23:30
--- NOTE | 2018-05-04 14:04 | PN ---
DATE: 05/04/2018 SUBJECTIVE: This 68-year-old male was examined at his bedside in the presence of his nurse, Day Hills, registered nurse. This case was reviewed in detail with Dr. Karen Gupta from GI and Dr. Isidoro Shankar from Hematology/Oncology. The patient is having persistent rectal bleeding. When I went into the patient's room this morning, he had just had a bowel movement that was mixed with blood. Of note, today's hemoglobin is 7.8 and was 8.5 yesterday after having had an additional 2 units of packed red blood cells on the evening of 05/02/2018. The patient will be scheduled for 2 additional units of packed red blood cells and this will make 6 units of blood this admission. I did speak with Dr. Karen Gupta from GI. He stated that his colonoscopy was significant for diverticulosis and upper endoscopy was unremarkable. I have placed another call out to him this morning to further discuss the persistent GI bleeding. As discussed with Dr. Isidoro Shankar, the patient will receive an additional 2 units of packed red blood cells as well as IV Venofer 200 mg IV piggyback today. At present, the patient is alert. He denies any fever, chills, chest pain, or shortness of breath. PHYSICAL EXAMINATION: VITAL SIGNS: He is in a normal sinus rhythm on quality assurance monitor with a temperature of 98.3, respirations 19, pulse 67, blood pressure 136/67, and pulse ox 97% on room air. HEENT: Head: Normocephalic, atraumatic. Eyes: No icterus. Ears: Clear. Throat: Noninjected. NECK: Supple. HEART: Regular, S1 and S2. No pathological rubs, murmurs, or gallops. LUNGS: Clear to auscultation. ABDOMEN: Soft. No rebound, no guarding, no tenderness. EXTREMITIES: No edema. SKIN: Without rash. NEUROLOGIC: Intact, but deconditioned. VASCULAR: Legs warm to touch. PSYCHOLOGIC: Alert. LABORATORY DATA: White count 5500, hemoglobin 7.8, hematocrit 22.4, and platelets 257,000. PT/INR 1.01, PTT 29. Sodium 139, K 4.2, chloride 112, bicarb 23. BUN 8, creatinine 0.9. Random blood sugar 133. Calcium 8.3. Bilirubin 0.5, AST 27, ALT 29, and alk phos 43. Echocardiography was reviewed. It showed left ventricle normal in size. Left posterior wall with mild hypertrophy, ejection fraction 45% with mild left ventricular diastolic dysfunction. Left atrium was normal in size. He had aortic valve thickening with normal valve opening, [id number] aortic regurgitation, mild mitral regurgitation, mild tricuspid regurgitation. No evidence of pericardial effusion. I did review the patient's abdominopelvic CT. It shows liver normal in size, contour, and attenuation with no masses. Persistent biliary stent is still in place. He is status post cholecystectomy. Pancreas was unremarkable. Spleen was unremarkable. Adrenal branch showed no mass. Bowel showed sigmoid diverticulosis with no evidence of diverticulitis. There was no evidence of bowel obstruction. IMPRESSION: A 68-year-old male with persistent gastrointestinal bleeding with history of insulin-dependent diabetes mellitus, encephalomalacia of the brain, deconditioning. PLAN: At present is to continue regular Humulin medium insulin coverage before meals and at bedtime, Venofer 100 mg IV piggyback today, Protonix 40 mg IV every 12 hours. IV fluids have been decreased to 30 mL IV hourly. He is ordered to have 2 units of packed red blood cells this morning and a CBC will be repeated in the a.m. He continues on a heart-healthy soft bland diet. Sequential compression device and antiembolism stockings. He remains on strict I's and O's. Neuro checks every shift and is ordered to have physical therapy for reconditioning and gait training. Based on clinical progress, additional diagnostic testing and workup will be entertained. Greater than 35 minutes was spent in the care management, review of labs, orders, x-rays, outlining of blood transfusion and IV iron, and discussion of his case with Dr. Shankar and Dr. Gupta as well as nurse, Charlee Hills and the patient. All questions were answered. Amber Elizabeth MD ZAHRAA
[2018-05-05 06:24] LABS: HEMOGLOBIN 9.6 g/dL (14.0-18.0); MEAN CELL VOLUME 86.7 fl (80.0-105.0); MEAN CORPUSCULAR HEMOGLOBIN 29.7 pg (25.0-35.0); MEAN CORPUSCULAR HGB CONC 34.3 g/dl (31.0-37.0); MEAN PLATELET VOLUME 10.8 fl (7.0-11.0); RBC 3.23 10^6/uL (3.5-6.1); RED CELL DISTRIBUTION WIDTH 14.2 % (11.5-14.5)
--- NOTE | 2018-05-05 07:42 | CP.PCM.PN ---
Subjective - Date & Time of Evaluation Date of Evaluation: 05/05/18 Time of Evaluation: 07:39 - Subjective Subjective: Surgery: Dr. Bateman Patient tolerating regular diet. Denies bleeding from rectum or bowel movement since yesterday morning. No acute events overnight. Patient received 2 units PRBC yesterday. Objective - Vital Signs/Intake and Output Vital Signs (last 24 hours): Temp Pulse Resp BP Pulse Ox 98.3 F 74 20 145/69 99 05/04/18 19:46 05/05/18 05:53 05/04/18 19:46 05/04/18 19:46 05/04/18 16:42 Intake and Output: 05/05/18 05/05/18 06:59 18:59 Intake Total 2455 Output Total 2401 Balance 54 - Medications Medications: Current Medications Sodium Chloride (Sodium Chloride 0.9%) 1,000 mls @ 30 mls/hr IV .Q24H LOUIE Insulin Human Regular (Humulin R Med) 0 units SC ACHS LOUIE; Protocol Last Admin: 05/04/18 22:11 Dose: 3 units - Labs Labs: 05/05/18 05:45 05/04/18 07:27 PT 11.5 SECONDS (9.4-12.5) 04/30/18 16:46 INR 1.01 04/30/18 16:46 APTT 29.0 Seconds (25.1-36.5) 04/30/18 16:46 - Constitutional Appears: Non-toxic, No Acute Distress - Head Exam Head Exam: ATRAUMATIC, NORMOCEPHALIC - Eye Exam Eye Exam: EOMI, Normal appearance - ENT Exam ENT Exam: Mucous Membranes Moist - Respiratory Exam Respiratory Exam: NORMAL BREATHING PATTERN. absent: Respiratory Distress - Cardiovascular Exam Cardiovascular Exam: REGULAR RHYTHM. absent: Tachycardia - GI/Abdominal Exam GI & Abdominal Exam: Soft. absent: Distended, Tenderness Assessment and Plan - Assessment and Plan (Free Text) Assessment: 68 y/o male w/ acute blood loss anemia 2/2 rectal bleeding s/p colonoscopy Plan: -no active bleed seen on c-scope -no blood per rectum since yesterday, cont to monitor -hgb appropriate response to transfusions -cont to monitor -no acute surgical intervention at this time -if patient rectal bleed recurs may consider repeat bleed scan -further recs per Dr. Bateman [facility] [place] PGY4
--- NOTE | 2018-05-05 07:49 | CP.PCM.PN ---
<Finesse Henry - Last Filed: 05/05/18 11:31> Subjective - Date & Time of Evaluation Date of Evaluation: 05/05/18 Time of Evaluation: 09:05 - Subjective Subjective: PGY-4 GI Fellow Prog Note Sitting in bedside chair when seen this AM. No complaints. No bloody BMs. Agreeable to have biliary stent removed tomorrow. 5 point ROS negative other than stated above Objective - Vital Signs/Intake and Output Vital Signs (last 24 hours): Temp Pulse Resp BP Pulse Ox 98.3 F 74 20 145/69 99 05/04/18 19:46 05/05/18 05:53 05/04/18 19:46 05/04/18 19:46 05/04/18 16:42 Intake and Output: 05/05/18 05/05/18 06:59 18:59 Intake Total 2455 Output Total 2401 Balance 54 - Medications Medications: Current Medications Sodium Chloride (Sodium Chloride 0.9%) 1,000 mls @ 30 mls/hr IV .Q24H LOUIE Insulin Human Regular (Humulin R Med) 0 units SC ACHS LOUIE; Protocol Last Admin: 05/04/18 22:11 Dose: 3 units - Labs Labs: 05/05/18 05:45 05/04/18 07:27 PT 11.5 SECONDS (9.4-12.5) 04/30/18 16:46 INR 1.01 04/30/18 16:46 APTT 29.0 Seconds (25.1-36.5) 04/30/18 16:46 - Constitutional Appears: No Acute Distress, Chronically Ill - Head Exam Head Exam: ATRAUMATIC, NORMAL INSPECTION - Eye Exam Eye Exam: EOMI. absent: Conjunctival injection, Scleral icterus - ENT Exam ENT Exam: Mucous Membranes Moist, Normal External Ear Exam. absent: Mucous Membranes Dry - Respiratory Exam Respiratory Exam: NORMAL BREATHING PATTERN. absent: Accessory Muscle Use, Respiratory Distress - GI/Abdominal Exam GI & Abdominal Exam: Distended (mildly), Soft, Normal Bowel Sounds. absent: Bruit, Firm, Guarding, Rigid, Tenderness, Mass, Organomegaly, Pulsatile Mass, Rebound Assessment and Plan - Assessment and Plan (Free Text) Assessment: 68M with significant vascular disease presenting with presyncope and painless hematochezia. #Acute blood loss anemia due to GI bleed: Suspect lower given painless hematochezia and no hematemesis. No previous Endos on file, but clearly had prior as he has biliary stent seen on CT and EGD during this stay. Hgb stable after 3 pRBC transfusion. Hemodynamically stable #PVD #T2DM #Malnourished #SABRA #Chronic eosinophilia #Hx of CBD stent Plan: - Dr. Gupta reviewed endo records over phone with [facility] [place], biliary stent has been in since 2011 - Plan for ERCP on 05/06/18 for stent removal - Explained risks/benefits/alternatives to pt who agree to proceed with procedure; consent in chart - NPO at [place] - s/p 3 units pRBCs 04/30/18 with appropriate response - Monitor Hgb and transfuse for symptomatic bleeding or Hb<7. Pt seen and examined with Dr. Gupta; please see attestation for further recs/changes. <Karen Gupta V - Last Filed: 05/05/18 23:27> Objective - Vital Signs/Intake and Output Vital Signs (last 24 hours): Temp Pulse Resp BP Pulse Ox 97.9 F 58 L 20 150/78 100 05/05/18 16:23 05/05/18 18:00 05/05/18 16:23 05/05/18 16:23 05/05/18 16:23 - Medications Medications: Current Medications Sodium Chloride (Sodium Chloride 0.9%) 1,000 mls @ 30 mls/hr IV .Q24H LOUIE Last Admin: 05/05/18 10:05 Dose: 30 mls/hr Insulin Human Regular (Humulin R Med) [address] [facility]; Protocol Last Admin: 05/05/18 21:28 Dose: Not Given - Labs Labs: 05/05/18 05:45 05/04/18 07:27 PT 11.5 SECONDS (9.4-12.5) 04/30/18 16:46 INR 1.01 04/30/18 16:46 APTT 29.0 Seconds (25.1-36.5) 04/30/18 16:46 Attending/Attestation - Attestation I have personally seen and examined this patient.: Yes I have fully participated in the care of the patient.: Yes I have reviewed all pertinent clinical information, including history, physical exam and plan: Yes Notes (Text): This is an addendum to GI progress report dictated by the GI Fellow.The patient was seen and examined earlier. Medical records, lab studies, imagings were reviewed. Last 24 hours events reviewed. Agreed with the above treatment plan as outlined in GI Fellow 's notes with the addition of the following No further episodes of bleeding Patient had biliary stent placement in 2011 Patient had EGD colonoscopy done subsequently in 2016 On examination abdomen soft nontender Discussed with Dr. Elizabeth earlier Scheduled for ERCP for removal of the stent tomorrow 05/05/18 23:24
[2018-05-05] MEDS: Insulin Reg-MEDIUM-Coverage SC SCH ×4 (08:25→21:28)
--- NOTE | 2018-05-05 16:33 | PN ---
DATE: 05/05/2018 SUBJECTIVE: This 68-year-old male was examined at his bedside in the presence of his and this case was reviewed in detail this morning with Dr. Karen Gupta from and nurse, Evi Harkins, registered nurse. The patient was admitted with rectal bleeding, which on colonoscopy was secondary to a diverticulum in his rectosigmoid area with no evidence of diverticulitis, colonic mass or colon cancer. The patient does have a chronically retained biliary stent, which is being scheduled for removal by Dr. Karen Gupta from in the a.m. The patient has received 6 units of packed red blood cells thus far this hospital stay and today he has had no evidence of hematemesis or melena. PHYSICAL EXAMINATION: VITAL SIGNS: He remains in a normal sinus rhythm on the court monitor and his temperature was 98.5, respirations 19, pulse 71 and blood pressure 145/77 with a pulse ox of 97% on room air. HEENT: Head: Normocephalic, atraumatic. Eyes: No icterus. Ears: Clear. Throat: Noninjected. NECK: Supple. HEART: Regular S1, S2. LUNGS: Clear. ABDOMEN: Soft. EXTREMITIES: No edema. SKIN: Without rash. NEUROLOGICAL: Deconditioned. VASCULAR: Legs warm to touch. PSYCHOLOGICAL: Alert and oriented x3. LABORATORY DATA: White count 6000, hemoglobin 9.6, hematocrit 28, platelets 262,000. PT/INR 1.01, PTT 29. Random blood sugar was 176. Sodium 139, K 4.2, chloride 112, bicarb 23, BUN 8, creatinine 0.9 and calcium 8.3. IMPRESSION: A 68-year-old male admitted with rectal bleeding secondary to bleeding diverticulum in his rectosigmoid area where he had marked diverticulosis, no diverticulitis and no evidence of colonic mass or polyps, also with retained biliary stent, which is on schedule for removal in the a.m. by Dr. Karen Gupta from in this gentleman status post cholecystectomy and with comorbidities of chronic type 2 diabetes mellitus, insulin-dependent, history of iron-deficiency anemia, degenerative arthritis and deconditioning secondary to frontal brain encephalomalacia. PLAN: The plan at present is to continue him on Humulin R medium insulin coverage before meals and at bedtime and he is receiving gentle IV fluids with plans to repeat a basic metabolic panel and CBC in the a.m. continuing heart-healthy diet. Sequential antiembolism stockings, neuro checks, physical therapy and a request for transitional care rehab has been placed as well as discussed with Dr. Karen Gupta from . The patient will need several days more monitoring of GI status including CBCs and monitoring for any further rectal bleeding. At this point in time, he will be treated symptomatically and supportively and to date has had 6 units of packed red blood cells. He will receive an additional 200 mg of IV Venofer today and have serial hemoglobin and hematocrit monitored until resolution of GI bleeding. All of this was discussed in detail with the patient, , nursing, Dr. Karen Gupta from . All questions were answered. Greater than 35 minutes was spent in the care and management, review of labs, orders and x-rays and discussion of this patient's case today. Amber Elizabeth MD MTDMicah
[2018-05-06 06:36] LABS: HEMOGLOBIN 9.7 g/dL (14.0-18.0); MEAN CELL VOLUME 87.2 fl (80.0-105.0); MEAN CORPUSCULAR HEMOGLOBIN 29.6 pg (25.0-35.0); MEAN CORPUSCULAR HGB CONC 33.9 g/dl (31.0-37.0); MEAN PLATELET VOLUME 10.8 fl (7.0-11.0); RBC 3.28 10^6/uL (3.5-6.1); RED CELL DISTRIBUTION WIDTH 14.2 % (11.5-14.5); WHITE BLOOD COUNT 6.1 10^3/ul (4.5-11.0)
[2018-05-06 06:56] LABS: BLOOD UREA NITROGEN 18 mg/dL (7-21); CALCIUM 8.9 mg/dL (8.4-10.5); GFR NON-AFRICAN AMERICAN > 60
[2018-05-06] MEDS ORDERED: Iohexol 240 (50 ml) ONE (07:49)
[2018-05-06] MEDS ORDERED: Indomethacin 50 MG Suppository PR ONE (07:50)
[2018-05-06] MEDS: Insulin Reg-MEDIUM-Coverage SC SCH ×2 (08:29→14:18)
--- NOTE | 2018-05-06 08:53 | CP.PCM.PN ---
Subjective - Date & Time of Evaluation Date of Evaluation: 05/06/18 Time of Evaluation: 08:50 - Subjective Subjective: General surgery progress note for Dr. Bateman Patient seen and examined at bedside. He is tolerating regular diet. Denies bleeding from rectum or bowel movement. No acute events overnight. He denies fevers, chills, shortness of breath, chest pain, or abdominal pain. Objective - Vital Signs/Intake and Output Vital Signs (last 24 hours): Temp Pulse Resp BP Pulse Ox 98.2 F 74 18 142/85 97 05/06/18 08:01 05/06/18 08:01 05/06/18 08:01 05/06/18 08:01 05/06/18 08:01 Intake and Output: 05/06/18 05/06/18 06:59 18:59 Intake Total 600 Output Total 2000 Balance -1400 - Medications Medications: Current Medications Sodium Chloride (Sodium Chloride 0.9%) 1,000 mls @ 30 mls/hr IV .Q24H LOUIE Last Admin: 05/05/18 10:05 Dose: 30 mls/hr Insulin Human Regular (Humulin R Med) 0 units SC ACHS [facility]; Protocol Last Admin: 05/06/18 08:29 Dose: 3 units - Labs Labs: 05/06/18 06:00 05/06/18 06:00 PT 11.5 SECONDS (9.4-12.5) 04/30/18 16:46 INR 1.01 04/30/18 16:46 APTT 29.0 Seconds (25.1-36.5) 04/30/18 16:46 - Constitutional Appears: Well, No Acute Distress - Head Exam Head Exam: ATRAUMATIC, NORMOCEPHALIC - Eye Exam Eye Exam: Normal appearance - ENT Exam ENT Exam: Mucous Membranes Moist - Respiratory Exam Respiratory Exam: NORMAL BREATHING PATTERN. absent: Respiratory Distress - Cardiovascular Exam Cardiovascular Exam: RRR. absent: Bradycardia, Tachycardia - GI/Abdominal Exam GI & Abdominal Exam: Soft. absent: Distended, Firm, Guarding, Tenderness - Extremities Exam Extremities Exam: Normal Inspection - Neurological Exam Neurological Exam: Alert, Awake, Oriented x3 - Psychiatric Exam Psychiatric exam: Normal Affect, Normal Mood - Skin Skin Exam: Dry, Intact, Normal Color, Warm Assessment and Plan - Assessment and Plan (Free Text) Assessment: 68 y/o male w/ acute blood loss anemia 2/2 rectal bleeding s/p colonoscopy. Plan: - Denies bloody bowel movement or bleeding from rectum - H & H stable - no acute surgical intervention at this time - Reconsult surgery as needed Case discussed with Dr. Fransico Bender PGY-1
[2018-05-06] MEDS ORDERED: cefTRIAXone 1 gm 1 GM/100 ML BAG IVPB ONE (10:00)
[2018-05-06] MEDS ORDERED: Propofol 10 mg/ml Inj (20 ML) ONE (10:46)
[2018-05-06] MEDS ORDERED: Midazolam 2 MG/2 ML VIAL ONE (10:46)
[2018-05-06] MEDS ORDERED: Rocuronium 10 mg/ml (5 ml) ONE (10:54)
[2018-05-06] MEDS ORDERED: Lactated Ringer's 1,000 ML IV SCH (11:30)
[2018-05-06] MEDS ORDERED: Glycopyrrolate 0.2 mg/ml (2ml vial) ONE (11:53)
[2018-05-06] MEDS ORDERED: Neostigmine Methylsulfate 3mg/3ml Syringe IV ONE (11:53)
[2018-05-06 16:48] VITALS: BP 172/87; PULSE 86; RESP 20; TEMP 98.6; O2SAT 98
--- NOTE | 2018-05-08 09:39 | DS ---
HOSPITAL COURSE: This 68-year-old male was examined at his bedside on the afternoon of 05/06/2018 and his discharge orders were reviewed with nurse, Riley Fermin, registered nurse and at bedside. FINAL DIAGNOSES: Gastrointestinal bleeding secondary to diverticulum in the rectosigmoid area requiring blood cell transfusion of 6 pack units under the direction of Dr. Karen Gupta from Gastroenterology. Also sigmoid diverticulosis, no evidence of diverticulitis; retained biliary stent removed by Dr. Karen Gupta and comorbidities of insulin-dependent diabetes mellitus; peptic ulcer disease with GERD; anemia of chronic disease; iron-deficiency anemia; degenerative arthritis; chronic frontal brain encephalomalacia and deconditioning. DISPOSITION: Home with family providing 24 hours supervision of this patient. DISCHARGE MEDICATIONS: Will include Glucophage 750 mg p.o. b.i.d., Januvia 100 mg p.o. daily, Protonix 40 mg p.o. daily, NovoLog insulin as per his primary care physician's direction, iron 324 mg p.o. t.i.d., and Colace 100 mg p.o. daily. Follow up with Dr. Karen Gupta as recommended. SUMMARY: This 68-year-old male was admitted to [facility] (Formerly [facility]3] with bright red blood per rectum and advanced anemia requiring critical care stay and blood cell transfusion of which the patient received 6 units of packed red blood cells. He underwent endoscopy and colonoscopy which showed no evidence of colon cancer or stomach cancer, but did show evidence of a bleeding diverticulum. This was treated supportively with clear liquid diet and IV blood cell transfusion and IV and oral iron replacement therapy. At the time of his discharge, the patient was out of bed to chair, tolerating diet and medication without incident and on vital signs had temperature of 98.6, respirations 20, pulse 86 and blood pressure 122/78 with a pulse ox of 98% on room air. White count 6100, hemoglobin 9.7, hematocrit 28.6, platelets 274,000. PT/INR 1.01, PTT 29. Sodium 138, K 4.1, chloride 109, bicarb 25, BUN 18, creatinine 1, random blood sugar 178 with a calcium level of 8.9. Nasal smear showed no MRSA. ERCP was successful in removing his biliary stent. Surgical specimens showed on ileocecal valve biopsy fragments of benign ileal mucosa with preserved villous architecture and lymphoid follicle, no active inflammation was identified. Gastric biopsy showed chronic active gastritis, mild. No intestinal metaplasia was identified. Immunological, histochemical stain for H. Pylori was negative. The patient was cleared for discharge to home by Dr. Karen Gupta. He was ambulating with assistance and has a cane at home with which he ambulates. All of the above was reviewed in detail with his and himself at the bedside as well as with nurse, Riley Fermin. All questions were answered. The patient was advised to call Dr. Gupta for GI followup and to follow up with his primary care physician. All questions were answered. DD: DT: Job # [id number]
--- NOTE | 2018-05-09 13:06 | RAD ---
Date of service: 05/06/2018 PROCEDURE: ERCP HISTORY: ? CBD OBST COMPARISON: TECHNIQUE: Fluoroscopy was provided in the endoscopy suite. 243.6 sec of fluoro time. Cumulative dose 30.62 mGy. Eight images were submitted FINDINGS: The study shows passage of a balloon catheter in the common duct. IMPRESSION: As above
== END 2018-05-06 17:00 | disposition home or self-care (01) | DRG 378 ==
LOC: ED 14:40 → ERH 19:23 → CCU 05-01 00:36 → 3RNO 05-02 14:30 → CCU 05-03 08:53 → 3RNO 05-03 20:12
PROVIDERS: ADMIT Internal Medicine; ATTEND Internal Medicine
PROC: 30233N1 Transfusion of Nonautologous Red Blood Cells into Peripheral Vein, Percutaneous Approach (ICD-10-PCS; 2018-05-01)
PROC: 0DBB8ZX Excision of Ileum, Via Natural or Artificial Opening Endoscopic, Diagnostic (ICD-10-PCS; principal; 2018-05-03 11:15)
PROC: 0DB68ZX Excision of Stomach, Via Natural or Artificial Opening Endoscopic, Diagnostic (ICD-10-PCS; 2018-05-03 11:15)
PROC: 0FPB8DZ Removal of Intraluminal Device from Hepatobiliary Duct, Via Natural or Artificial Opening Endoscopic (ICD-10-PCS; 2018-05-06)
PROC: 0FC98ZZ Extirpation of Matter from Common Bile Duct, Via Natural or Artificial Opening Endoscopic (ICD-10-PCS; 2018-05-06 10:45)
DX: K57.31 Diverticulosis of large intestine without perforation or abscess with bleeding (principal); E87.2 Acidosis; D62 Acute posthemorrhagic anemia; N17.9 Acute kidney failure, unspecified; I25.10 Atherosclerotic heart disease of native coronary artery without angina pectoris; E87.5 Hyperkalemia; E11.51 Type 2 diabetes mellitus with diabetic peripheral angiopathy without gangrene; E11.65 Type 2 diabetes mellitus with hyperglycemia; K59.00 Constipation, unspecified; K80.50 Calculus of bile duct without cholangitis or cholecystitis without obstruction; I10 Essential (primary) hypertension; D72.1 Eosinophilia; E11.42 Type 2 diabetes mellitus with diabetic polyneuropathy; G93.89 Other specified disorders of brain; K21.9 Gastro-esophageal reflux disease without esophagitis; K29.50 Unspecified chronic gastritis without bleeding; F41.1 Generalized anxiety disorder; K64.8 Other hemorrhoids; R79.1 Abnormal coagulation profile; S09.90XA Unspecified injury of head, initial encounter; W18.30XA Fall on same level, unspecified, initial encounter; Z79.4 Long term (current) use of insulin; Z86.73 Personal history of transient ischemic attack (TIA), and cerebral infarction without residual deficits; Z90.49 Acquired absence of other specified parts of digestive tract; Y92.512 Supermarket, store or market as the place of occurrence of the external cause

== ENCOUNTER 2018-09-13 12:08 | Outpatient (CLI) | payer MEDICARE | END 2018-09-13 12:09 | disposition home or self-care (01) | LOC: LAB 12:08 ==

== ENCOUNTER 2018-12-10 09:18 | Emergency (ER) | payer MEDICARE ==
[2018-12-10 09:19] VITALS: BMI 21.7
--- NOTE | 2018-12-10 09:23 | ED PDOC ---
Arrival/HPI - General Chief Complaint: Shortness Of Breath Time Seen by Provider: 12/10/18 09:21 Historian: Patient - History of Present Illness Narrative History of Present Illness (Text): 12/10/18 09:22 Patient is a 68 male with T2DM, CAD, anemia, arthritis, PUD, GERD, and h/o lower GI bleed who presents with cough and watery/itching eyes. Patient says this started 3 days ago. Cough is dry but he feels like there is something to cough up from his throat. He has some nasal congestion. Eyes are not painful. He has no vision changes. He also states he has bilateral back pain when he coughs or inhales deeply. He has not tried anything for the symptoms. He denies sick contacts. Time/Duration: < week Symptom Onset: Gradual Symptom Course: Worsening Past Medical History - Provider Review Nursing Documentation Reviewed: Yes - Infectious Disease Hx of Infectious Diseases: None - Cardiac Hx Cardiac Disorders: No - Pulmonary Hx Respiratory Disorders: No - Neurological Hx Neurological Disorder: No - HEENT Hx HEENT Disorder: No - Renal Hx Renal Disorder: No - Endocrine/Metabolic Hx Diabetes Mellitus Type 2: Yes - Hematological/Oncological Hx Blood Transfusions: No - Integumentary Hx Dermatological Disorder: No - Musculoskeletal/Rheumatological Hx Musculoskeletal Disorders: No - Gastrointestinal Hx Gastrointestinal Disorders: No - Genitourinary/Gynecological Hx Genitourinary Disorders: No - Psychiatric Hx Psychophysiologic Disorder: No Hx Substance Use: No - Surgical History Other/Comment: bladder - Anesthesia Hx Anesthesia Reactions: No Hx Malignant Hyperthermia: No Family/Social History - Physician Review Nursing Documentation Reviewed: Yes Family/Social History: Unknown Family HX Smoking Status: Never Smoked Hx Alcohol Use: No Hx Substance Use: No Allergies/Home Meds Allergies/Adverse Reactions: Allergies No Known Allergies Allergy (Verified 12/10/18 09:39) Home Medications: Home Meds Medication Instructions Recorded Confirmed Cyclobenzaprine [Flexeril] 5 mg PO DAILY 07/28/16 09/24/16 Clonazepam [Klonopin] 0.5 mg PO HS PRN 09/24/16 09/24/16 Insulin Aspart [Novolog Flexpen] 100 units SQ ACBHS 09/24/16 09/24/16 Megestrol Acetate [Megace] 1 tsp PO BID 09/24/16 09/24/16 Pantoprazole Sodium [Protonix] 40 mg PO DAILY 09/24/16 09/24/16 SITagliptin [Januvia] 100 mg PO DAILY 09/24/16 09/24/16 metFORMIN ER [glucoPHAGE XR] 750 mg PO BID 09/24/16 09/24/16 traMADol [Ultram] 50 mg PO TID PRN 09/24/16 09/24/16 Review of Systems - Review of Systems Constitutional: absent: Fatigue, Fevers Eyes: Other (watery, itchy). absent: Vision Changes, Photophobia, Eye Pain ENT: Normal Respiratory: Cough. absent: SOB, Sputum Cardiovascular: absent: Chest Pain, Palpitations Gastrointestinal: absent: Abdominal Pain, Nausea, Vomiting Genitourinary Male: Normal Musculoskeletal: Back Pain Skin: Pruritis (eyes) Neurological: absent: Headache, Dizziness Endocrine: absent: Diaphoresis Hemo/Lymphatic: absent: Adenopathy Physical Exam Vital Signs Reviewed: Yes Temperature: Afebrile Blood Pressure: Normal Pulse: Regular Respiratory Rate: Normal Appearance: Positive for: Non-Toxic, Comfortable Pain Distress: None Mental Status: Positive for: Alert and Oriented X 3 - Systems Exam Head: Present: Atraumatic, Normocephalic Pupils: Present: PERRL, Other (mildly injected/red sclera, arcus senilis ) Extroacular Muscles: Present: EOMI Conjunctiva: Present: Normal Mouth: Present: Moist Mucous Membranes Pharnyx: Present: Normal. No: ERYTHEMA, EXUDATE, TONSILS ENLARGED, Uvular Deviation, Muffled/Hoarse Voice Nose (Internal): Present: Normal Inspection, Clear Mucous Neck: Present: Normal Range of Motion. No: Lymphadenopathy Respiratory/Chest: Present: Clear to Auscultation, Good Air Exchange Cardiovascular: Present: Regular Rate and Rhythm, Normal S1, S2 Abdomen: No: Tenderness, Distention Upper Extremity: Present: Normal Inspection Lower Extremity: Present: Normal Inspection Neurological: Present: GCS=15, CN II-XII Intact, Speech Normal Skin: Present: Warm, Dry, Normal Color Lymphatic: No: Cervical Adenopathy Psychiatric: Present: Alert, Oriented x 3, Normal Insight, Normal Concentration Medical Decision Making ED Course and Treatment: 12/10/18 10:02 CXR Re-evaluation Time: 10:25 Reassessment Condition: Improving,but remains with symptoms - RAD Interpretation Radiology Orders: CXR- unremarkable Validation Technician: ED Physician - Medication Orders Current Medication Orders: 12/10/18 10:02 Mucinex 600 mg PO Loratidine 10 mg PO Disposition/Present on Arrival - Present on Arrival Any Indicators Present on Arrival: No History of DVT/PE: No History of Uncontrolled Diabetes: No Urinary Catheter: No History of Decub. Ulcer: No History Surgical Site Infection Following: None - Disposition Have Diagnosis and Disposition been Completed?: Yes Diagnosis: Bronchitis, Allergic conjunctivitis Disposition: HOME/ ROUTINE Disposition Time: 10:03 Patient Plan: Discharge Patient Problems: Current Active Problems Problem Status Onset Allergic conjunctivitis Acute Bronchitis Acute Condition: GOOD Discharge Instructions (ExitCare): Acute Bronchitis, Adult (DC), Conjunctivitis (Noninfectious Pinkeye) (DC) Additional Instructions: [facility]. Take Loratidine 10 mg daily for 3 days. Take Mucinex DM 600-30 mg twice daily for 3 days. Prescriptions: guaiFENesin/Dextromethorphan [guaiFENesin/DM 600-30 mg] 1 tab PO BID #6 tab Loratadine [Claritin] 10 mg PO DAILY #3 tab Referrals: Miroslava Mcmahan MD [Family Provider] - Follow up with primary Forms: [employer] (Nepali)
[2018-12-10 09:37] VITALS: O2SAT 99
[2018-12-10] MEDS ORDERED: guaiFENesin-DM 600-30 mg ER Tab PO STA (10:00)
[2018-12-10 10:40] VITALS: BP 153/92; PULSE 87; RESP 18; TEMP 97.9
--- NOTE | 2018-12-10 10:52 | RAD ---
Date of service: 12/10/2018 HISTORY: sob, cough COMPARISON: 04/30/2018 TECHNIQUE: 1 view obtained. FINDINGS: LUNGS: No active pulmonary disease. PLEURA: No significant pleural effusion identified, no pneumothorax apparent. CARDIOVASCULAR: No aortic atherosclerotic calcification present. Normal cardiac size. No pulmonary vascular congestion. OSSEOUS STRUCTURES: No significant abnormalities. VISUALIZED UPPER ABDOMEN: Normal. OTHER FINDINGS: None. IMPRESSION: No active disease.
== END 2018-12-10 10:39 | disposition home or self-care (01) ==
LOC: ED 09:18
DX: J40 Bronchitis, not specified as acute or chronic (principal); H10.10 Acute atopic conjunctivitis, unspecified eye; E11.9 Type 2 diabetes mellitus without complications; I25.10 Atherosclerotic heart disease of native coronary artery without angina pectoris